=== PATIENT | female | born 1945 | race Caucasian/White ===

== ENCOUNTER 2019-10-02 14:19 | Emergency (ER) | payer MEDICAID, SELFPAY ==
[2019-10-02 14:23] VITALS: BP 94/55; PULSE 86; RESP 14; TEMP 36.7; O2SAT 95; BMI 35.5
--- NOTE | 2019-10-02 14:38 | XRR_ITS ---
PROCEDURE INFORMATION: Exam: XR Abdomen, 1 View Exam date and time: 10/02/2019 2:41 PM Age: 74 years old Clinical indication: Other: Diarrhea; Prior surgery; Surgery type: Gb; Additional info: Diarrhea x 2 weeks, lower abd pain x 4 days TECHNIQUE: Imaging protocol: XR of the abdomen. Views: Frontal supine view of the abdomen. 1 View. COMPARISON: No relevant prior studies available. FINDINGS: Gastrointestinal tract: Scattered bowel gas in a nonspecific fashion. Organs: No evidence of organomegaly or abnormal calcification. Bones/joints: Degenerative change of the spine. Degenerative change of both hips. XR/XR KUB portable [id number] IMPRESSION: Unremarkable KUB.
--- NOTE | 2019-10-02 14:47 | W.ED.NAVMDI ---
HPI - Nausea/Vomiting/Diarrhea General: Chief complaint: Nausea/Vomiting/Diarrhea Stated complaint: WEAKNESS/D Time Seen by Provider: 10/02/19 14:32 History of Present Illness: HPI Narrative: Patient says she feels fine but she has had diarrhea for 2 weeks having yellow stools the last few days. Has been a little nauseous but it continues to eat only drinks bottled water is not been arriving by is been sick. No fever chills or other problems MD elicited complaint: nausea and diarrhea Associated nausea: Yes Associated symtoms: Reports nausea; Denies anxiety, change in vision, chest pain or headache(s) Review of Systems Const: Denies: fever(s), chills or body aches Eyes: Denies: change in vision or blurry vision ENMT: Denies: throat pain or nasal congestion Card: Denies: chest pain or dyspnea on exertion Resp: Denies: dyspnea, productive cough or non-productive cough GI: Reports: nausea and diarrhea; Denies: abdominal pain or vomiting Musc: Denies: extremity pain Skin/Breast: Denies: rash Neuro: Denies: headache(s) Psych: Denies: anxiety or depression Jose A/Lymph: Denies: easy bruising PFSH ED PFSH: Social History Smoking and tobacco status: never smoked Physical Exam Const: COMMON NORMALS: no acute distress, average body habitus and patient oriented x3 HENMT: COMMON NORMALS: normocephalic HEAD & SCALP: normal to inspection and normocephalic FACE & SINUS: normal facial exam Eye: COMMON NORMALS: conjunctivae normal GENERAL EYE: appearance normal, both eyes and all related structures CONJUNCTIVA: Yes conjunctivae normal Neck/C-Spine: COMMON NORMALS: no JVD Chest: COMMONS NORMALS: normal inspection of the chest Resp: COMMON NORMALS: normal respiratory effort and clear to auscultation bilaterally AUSCULTATION: clear to auscultation bilaterally Cardio: COMMON NORMALS: no JVD, regular rate and regular rhythm RATE: regular rate RHYTHM: regular rhythm GI: COMMON NORMALS: Normal to inspection, nondistended, normoactive bowel sounds present Extremity: COMMON NORMALS: normal to inspection and full ROM Neuro: COMMON NORMALS: patient oriented x3 Course Vital Signs: Vital signs: Vital Signs Temperature 98.1 F 10/02/19 14:23 Pulse Rate 86 10/02/19 14:23 Respiratory Rate 14 10/02/19 14:23 Blood Pressure 94/55 10/02/19 14:23 Pulse Oximetry 95 10/02/19 14:23 Discharge Plan Discharge Prescriptions: No Action carvedilol 25 mg tablet 25 mg PO BID Qty: 60 RF: 3 spironolactone 25 mg tablet 25 mg PO DAILY Qty: 30 RF: 5 Coding Level of Care Code ED Roving Marker for Sancho Romo
[2019-10-02 15:09] LABS: Basophils % 0.5 %; Eosinophils # 0.1 10^3/uL (0.0-0.8); Eosinophils % 1.5 %; Hematocrit 37.2 % (37.0-47.0); Hemoglobin 12.2 g/dL (11.5-15.3); Lymphocytes # 1.6 10^3/uL (0.8-4.8); Lymphocytes % 19.7 %; Mean Corpuscular HGB Conc 32.8 g/dL (30.0-36.0); Mean Corpuscular Hemoglobin 30.3 pg (28.0-34.0); Mean Corpuscular Volume 92.3 fL (81-99); Mean Platelet Volume 10.1 fL (7.4-10.4); Monocytes # 0.8 10^3/uL (0.2-0.9); Monocytes % 10.1 %; Neutrophils # 5.4 10^3/uL (1.8-7.7); Neutrophils % 67.9 %; Nucleated Red Blood Cells % 0 %; Platelet Count 293 10^3/cmm (130-400); Red Blood Count 4.03 10^6/uL (4.1-5.3); Red Cell Distribution Width 13.5 % (12.1-15.1); White Blood Count 7.9 10^3/uL (4.0-10.0)
[2019-10-02 15:38] LABS: Alanine Aminotransferase 36 U/L (0-33); Albumin Level 4.7 g/dL (3.5-5.2); Alkaline Phosphatase 141 IU/L (35-105); Anion Gap 21.8 (5-19); Aspartate Amino Transferase 25 U/L (0-32); Blood Urea Nitrogen 73 mg/dL (8-23); Calcium 10.1 mg/dL (8.5-10.5); Carbon Dioxide 15 mmol/L (22-29); Chloride 102 mmol/L (98-107); Globulin 2.7 g/dL (1.3-4.6); Glucose 135 mg/dL (65-115); Osmolality Calculated 278 mOsm/kg (285-295); Potassium 5.8 mmol/L (3.5-5.1); Sodium 133 mmol/L (136-145); Thyroid Stimulating Hormone 4.02 uIU/mL (0.27-4.20); Total Protein 7.4 g/dL (6.6-8.7)
--- NOTE | 2019-10-02 15:51 | CTR_ITS ---
PROCEDURE INFORMATION: Exam: CT Abdomen And Pelvis Without Contrast Exam date and time: 10/02/2019 3:58 PM Age: 74 years old Clinical indication: Prior surgery; Surgery type: Gb; Patient HX: Persistent diarrhea. Elevated creatinine. TECHNIQUE: Imaging protocol: Computed tomography of the abdomen and pelvis without contrast. Radiation optimization: All CT scans at this facility use at least one of these dose optimization techniques: automated exposure control; mA and/or kV adjustment per patient size (includes targeted exams where dose is matched to clinical indication); or iterative reconstruction. COMPARISON: CR XR KUB portable [id number] 10/02/2019 2:40 PM RADIATION DOSE METRICS: Total DLP (mGy-cm): 1248.43 FINDINGS: Liver: Normal. No mass. Gallbladder and bile ducts: Normal. No calcified stones. No ductal dilation. Pancreas: Normal. No ductal dilation. Spleen: Normal. No splenomegaly. Adrenals: Normal. No mass. Kidneys and ureters: There are subcentimeter renal cysts with benign features. Follow-up is not necessary. Stomach and bowel: There is diverticulosis of the colon without evidence of diverticulitis. There are air-fluid levels in the distal colon suggesting mild nonspecific colitis versus other diarrheal illness. Appendix: No evidence of appendicitis. Intraperitoneal space: Unremarkable. No free air. No significant fluid collection. Vasculature: Multivessel atherosclerotic disease which involves the coronary arteries. Lymph nodes: Unremarkable. No enlarged lymph nodes. Bladder: Unremarkable as visualized. Reproductive: Unremarkable as visualized. Bones/joints: There are degenerative changes in the visualized spine. 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 Slight grade 1 anterolisthesis of L5 on S1 with mild bilateral neural foraminal narrowing. Soft tissues: There is a small fat containing umbilical hernia. CT/CT abdomen pelvis wo con [id number] IMPRESSION: There are air-fluid levels in the distal colon suggesting mild nonspecific colitis versus other diarrheal illness. COMMENTS: Consistent with the [employer]'s Incidental Findings Committee white paper (J Am Melvin Radiol 2018): Any incidental renal lesion less than 1.0 cm or classified as too small to characterize, or any incidental cystic renal lesion characterized as simple-appearing, is likely benign. No follow-up imaging is recommended for these lesions per consensus recommendations based on imaging criteria. Radiation Dose CTDIVOL = (mGy): DLP = 1248.43 (mGy-cm)
[2019-10-02 15:52] VITALS: RESP 18
[2019-10-02] MEDS: sodium chloride 0.9% 1,000 ML 999 ML IV (16:29)
[2019-10-02 16:57] VITALS: BP 102/48; PULSE 62; RESP 18; TEMP 36.7; O2SAT 98
== END 2019-10-02 16:59 | disposition home or self-care (01) ==
PROVIDERS: Emergency Provider Nurse Practitioner Family; PCP Family Medicine
DX: R11.2 Nausea with vomiting, unspecified (principal); R19.7 Diarrhea, unspecified; R53.1 Weakness
CPT/HCPCS: 12345; 74018; 74176; 80053; 84443; 85025; 96360; 99283; J7030

== ENCOUNTER 2021-01-24 11:49 | Emergency (ER) | payer MEDICAID, SELFPAY ==
[2021-01-24 12:01] VITALS: BP 147/86; PULSE 78; RESP 18; TEMP 37.2; O2SAT 97; BMI 36.1
--- NOTE | 2021-01-24 12:08 | CT_ITS ---
WS: [id number] CT ABDOMEN PELVIS TECHNIQUE: Noncontrast CT of the abdomen and pelvis with coronal and sagittal reformatted images. CLINICAL INFORMATION: rule out trauma COMPARISON: October 02, 2019 DLP: 1792.[address] scans at [facility] use at least one of these dose optimization techniques: automated e xposure control; mA and/or kV adjustment per patient size (includes targeted exams where dose is matc hed to clinical indication); or iterative reconstruction. FINDINGS: Lung bases are well aerated. Chronic micronodular infiltrate left lower lobe with bronchiectasis unch anged since October 02, 2019. Noncontrast liver is normal. Normal noncontrast spleen. Mild fatty atrophy of the pancreas. Small eso phageal hiatal hernia. Adrenal glands are normal. Normal caliber abdominal aorta. Adrenal glands are normal. No hydronephrosis in either kidney. Cortical scarring both kidneys. Small right peripelvic cy sts. Fat-containing umbilical hernia. A few sigmoid diverticuli. No evidence of acute diverticulitis. No e vidence of small or large bowel obstruction. No free fluid in the pelvis. Slight anterolisthesis L5 o n S1 with chronic bilateral pars defects. Fibroid uterus. CT/CT abdomen pelvis wo con [id number] IMPRESSION: 1. No hydronephrosis in either kidney. No obstructing renal or ureteral calcul i. 2. Small esophageal hiatal hernia. 3. Fat-containing umbilical hernia. 4. Fibroid uterus. 5. Chronic bilateral pars defects L5-S1. Minimal anterolisthesis L5 on S1. 6. Sigmoid diverticulosis. No evidence of acute diverticulitis.
--- NOTE | 2021-01-24 12:08 | XR_ITS ---
NOTE: Report was unsigned for reason: Order was edited. Original Signature date and time was: 01/24/21@ 1253 WS: [id number] PA chest with right rib detail, 3 views, 01/24/2021 Clinical Data: r sided rib pain Comparison: PA and lateral chest, 03/30/2018. Findings: The heart is normal. The pulmonary vascularity is not increased. No pneumonia or pneumothorax is seen. There is no subcutaneous emphysema. The right ribs show no fractures. The adjacent soft tissue is normal[facility] w CXR1V [id number] Impression: Negative PA chest with right rib detail.
--- NOTE | 2021-01-24 12:14 | ED_ITS ---
HPI - General Adult General: Chief complaint: Fall Stated complaint: R SIDE PAIN - FELL 1 WK AGO Time Seen by Provider: 01/24/21 11:52 History of Present Illness: HPI narrative: Patient is a 75-year-old female presents emergency with room with complaints of right-sided flank pain after an episode of fall which she sustained last week opening the dog gate. Patient has bruises over the right hip but reports right- sided flank pain, which has been persistent. Patient denies any hematuria, abdominal complaints, nausea/vomiting, fever/chills. Patient denies having any chest pain or shortness of breath cough fever/chills, or other complaints at this time. Onset:1 week ago Duration:1 week Location:home Severity: mild Review of Systems Narrative: Constitutional: No fever, no chills. HEENT: No vision changes CV: No chest pain, no palpitations PULM: no cough, no dyspnea. GI: No abdominal pain, no N/V/D. : No dysuria MSKEL: No muscle pain, +L sided flank pain SKIN: +L sided bruise NEURO: No headache, no focal weakness. HEME: No visible bruises PSYCH: Normal mood [facility] ED PFSH: Social History Smoking and tobacco status: never smoked Female Reproductive History: Date of last menstrual period: 06/29/20 Physical Exam Narrative: EXAM NARRATIVE: Head: Atraumatic Eyes: PERRL, conjunctiva without injection ENT: Mucous membrane moist NECK: Supple, ROM intact LUNGS: LCTAB, no crackles/rhonchi CV: RRR ABDOMEN: Soft, nontender in all quadrants, +L abdominal hematoma EXTREMITY: Normal ROM SKIN: + L lateral thigh healing bruise NEURO: Awake and alert, no focal motor deficits PSYCH: Normal mood and affect Course Vital Signs: Vital signs: Vital Signs Temperature 98.9 F 01/24/21 12:01 Pulse Rate 84 01/24/21 13:53 Respiratory Rate 16 01/24/21 13:53 Blood Pressure 168/82 01/24/21 13:53 Pulse Oximetry 98 01/24/21 13:53 MDM - General Adult MDM Narrative: Medical decision making narrative: Patient is 75-year-old female presenting to the emergency room with complaints of right-sided flank pain after sustaining a fall last week. Patient has preserved the right hip. On exam, patient has mild tenderness to palpation of the right flank. Lungs were clear on both sides. Given finding, will evaluate for solid organ injury versus rib fracture with x- ray chest, rib series and CT abdomen pelvis. Imaging studies negative for any acute findings. Rx tylenol 500mg TID PRN pain Disposition: Discharge. Patient counseled regarding diagnostic impression, treatment plan. Patient given ED strict return precautions to return for continuation, worsening, or development of new symptoms. Instructed to f/u w/ PCP regarding symptoms today. Patient verbalized understanding. Imaging Data^: Other Imaging: Radiologist's impression: [address] [id number] ReportSigned Patient: Tresa Abrams #: [id number]: 5Acct#:[id number]/Sex: 75 / FADM Date: 01/24/21[facility]Attending Dr: Ordering Provider/Ordering MD: Naun Dorsey MD Date of Service: 01/24/21 Procedure(s): XR ribs RT mn 3V w CXR1V [id number] Accession Number(s): [id number] Report Number: [id number] NOTE: Report was unsigned for reason: Order was edited. Original Signature date and time was: 01/24/21@ 1253 WS: [id number] PA chest with right rib detail, 3 views, 01/24/2021 Clinical Data: r sided rib pain Comparison: PA and lateral chest, 03/30/2018. Findings: The heart is normal. The pulmonary vascularity is not increased. No pneumonia or pneumothorax is seen. There is no subcutaneous emphysema. The right ribs show no fractures. The adjacent soft tissue is normal. XR/XR ribs RT mn 3V w CXR1V [id number] Impression: Negative PA chest with right rib detail. Dictated By:Amy Ceja MDSigned By:Amy Ceja MDSigned Date/Time:01/24/[address] [address]QR Scan ReportSigned Patient: Tresa Abrams #: [id number]: 5Acct#:[id number]/Sex: 75 / FADM Date: 01/24/21Loc: ERRoom/Bed:Attending Dr: Ordering Provider/Ordering MD: Naun Dorsey MD Date of Service: 01/24/21 Procedure(s): CT abdomen pelvis wo con [id number] Accession Number(s): [id number] Report Number: [id number] WS: [id number] CT ABDOMEN PELVIS TECHNIQUE: Noncontrast CT of the abdomen and pelvis with coronal and sagittal reformatted images. CLINICAL INFORMATION: rule out trauma COMPARISON: October 02, 2019 DLP: 1792.[address] scans at [facility] use at least one of these dose optimization techniques: automated exposure control; mA and/or kV adjustment per patient size (includes targeted exams where dose is matched to clinical indication); or iterative reconstruction. FINDINGS: Lung bases are well aerated. Chronic micronodular infiltrate left lower lobe with bronchiectasis unchanged since October 02, 2019. Noncontrast liver is normal. Normal noncontrast spleen. Mild fatty atrophy of the pancreas. Small esophageal hiatal hernia. Adrenal glands are normal. Normal caliber abdominal aorta. Adrenal glands are normal. No hydronephrosis in either kidney. Cortical scarring both kidneys. Small right peripelvic cysts. Fat-containing umbilical hernia. A few sigmoid diverticuli. No evidence of acute diverticulitis. No evidence of small or large bowel obstruction. No free fluid in the pelvis. Slight anterolisthesis L5 on S1 with chronic bilateral pars defects. Fibroid uterus. CT/CT abdomen pelvis wo con [id number] IMPRESSION: 1. No hydronephrosis in either kidney. No obstructing renal or ureteral calculi. 2. Small esophageal hiatal hernia. 3. Fat-containing umbilical hernia. 4. Fibroid uterus. 5. Chronic bilateral pars defects L5-S1. Minimal anterolisthesis L5 on S1. 6. Sigmoid diverticulosis. No evidence of acute diverticulitis. Dictated By:Thanh Nguyen MDSigned By:Thanh Nguyen MDSigned Date/Time:01/24/21 1314 Discharge Plan Discharge Patient Disposition: Home Clinical Impression: Flank pain Condition: Stable Prescriptions: New acetaminophen 500 mg tablet 500 mg PO Q8H PRN (Reason: pain) 5 Days Qty: 15 RF: 0 lidocaine 5 % adhesive patch,medicated 1 patch topical DAILY PRN (Reason: pain) 10 Days Qty: 10 RF: 0 orphenadrine citrate 100 mg tablet extended release 100 mg PO DAILY PRN (Reason: pain) 10 Days Qty: 10 RF: 0 No Action carvedilol 25 mg tablet 25 mg PO BID Qty: 60 RF: 3 spironolactone 25 mg tablet 25 mg PO DAILY Qty: 30 RF: 0 Lomotil 2.5-0.025 mg tablet 1 tab PO Q8H PRN (Reason: diarrhea) Qty: 10 RF: 0 Discharge Orders: Discharge ED (Routine); Ordered 01/24/21 Ordered By: Naun Dorsey Referrals: Eran Henry DO [Primary Care Provider] - Discharge Diet: Advance as tolerated Discharge Activity: Resume usual activity Patient Instructions: Flank Pain (ED) Activity Restrictions/Additional Instructions: Come back to the ER if you have any worsening pain, fever/chills, or any new or concerning complaints. 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
[2021-01-24 13:53] VITALS: BP 168/82; PULSE 84; RESP 16; O2SAT 98
== END 2021-01-24 13:55 | disposition home or self-care (01) ==
PROVIDERS: Emergency Provider Emergency Medicine; PCP Family Medicine
DX: R10.9 Unspecified abdominal pain (principal)
CPT/HCPCS: 71045; 71100; 71101; 74176; 99281

== ENCOUNTER 2021-04-15 19:05 | Emergency (ER) | payer MEDICAID, SELFPAY ==
[2021-04-15 19:36] VITALS: BP 130/82; PULSE 77; RESP 16; TEMP 36.8; O2SAT 97; BMI 36.1
--- NOTE | 2021-04-15 21:41 | CTR_ITS ---
PROCEDURE INFORMATION: Exam: CT Abdomen And Pelvis With Contrast Exam date and time: 04/15/2021 9:41 PM Age: 76 years old Clinical indication: Other: Bright red blood in stools; Prior surgery; Surgery date: 6+ months; Surgery type: Gb; Additional info: Lower gi bleeding TECHNIQUE: Imaging protocol: Computed tomography of the abdomen and pelvis with contrast. Total images: 258 Radiation optimization: All CT scans at this facility use at least one of these dose optimization techniques: automated exposure control; mA and/or kV adjustment per patient size (includes targeted exams where dose is matched to clinical indication); or iterative reconstruction. Contrast material: VISI; Contrast volume: 95 ml; Contrast route: INTRAVENOUS (IV); COMPARISON: CT abdomen pelvis wo con [id number] 01/24/2021 12:32 PM RADIATION DOSE METRICS: Total DLP (mGy-cm): 1799.37 FINDINGS: Lungs: Limited assessment of the lung bases fails to reveal evidence for active cardiopulmonary process. Stable parenchymal scar left lower lobe. Liver: No visible hepatic mass or cystic structure. Hepatomegaly. Gallbladder and bile ducts: Gallbladder not visualized and presumed surgically absent. Pancreas: Mild pancreatic fatty replacement. No visible pancreatic ductal ectasia. No visible pancreatic mass or cystic structure. Spleen: Rare calcified splenic granuloma. Spleen otherwise unremarkable. Adrenal glands: Adrenal glands unremarkable. Kidneys and ureters: No hydronephrosis or perinephric fluid. No visible nephrolithiasis or visible ureterolithiasis. Rare small simple renal cortical cysts bilaterally. No follow-up recommended. No interval change. No visible renal mass. Stomach and bowel: Diverticulosis coli without current visible evidence for acute diverticulitis. Nonobstructive bowel pattern. No visible adynamic or reactive ileus. Small hiatal hernia. No visible source of gastrointestinal hemorrhage. Appendix: The appendix is not visualized. Intraperitoneal space: No visible pneumoperitoneum or intraperitoneal ascites. Vasculature: Portal vein patent. The abdominal aorta is nonaneurysmal. Moderate arterial sclerotic disease. Lymph nodes: No current visible evidence of active mesenteric or retroperitoneal lymphadenopathy. No visible evidence of mesenteric lymphadenitis or active mesenteritis/panniculitis. Urinary bladder: Urinary bladder unremarkable. No visible bladder stone. Reproductive: Small uterine leiomyomata. Bones/joints: No visible acute osseous abnormality. Old posterior right 12th rib fracture. Bilateral spondylolysis L5/S1 with minimal grade 1 anterior spondylolisthesis. Mild degenerative disease of the spine with mild spondylosis deformans. Soft tissues: Small periumbilical hernia containing fat only. Marked obesity. CT/CT abdomen pelvis w con* [id number] IMPRESSION: Currently no visible evidence for acute abdominal or pelvic pathologic process. COMMENTS: Consistent with the [employer]'s Incidental Findings Committee white paper (J Am Melvin Radiol 2018): Any incidental renal lesion less than 1 cm or classified as too small to characterize, or any incidental cystic renal lesion characterized as simple-appearing, is likely benign. No follow-up imaging is recommended for these lesions per consensus recommendations based on imaging criteria.
--- NOTE | 2021-04-15 21:42 | ECG_ITS ---
[facility] Test Date: 2021-04-15 Pat Name: Tresa Abrams Department: Room: Gender: Female Cut Pressman: : 1945 Requested By: Pola Harman Order Number: [id number] Mitchell MD: Guillermina Pressley M.D. Measurements Intervals [place] Rate: 72 P: 66 GA: 185 QRS: 3 QRSD: 95 T: 56 QT: 402 QTc: 440 Interpretive Statements SINUS RHYTHM Compared to ECG 03/30/2018 17:00:26 No significant changes Electronically Signed On 04-17-2021 5:05:18 NIGHT TIME NANNY by Guillermina Pressley M.D. [id number]
[2021-04-15 21:59] VITALS: BP 142/72; PULSE 70; RESP 18; O2SAT 98
[2021-04-15 22:08] LABS: Basophils # 0.1 10^3/uL (0.0-0.1); Basophils % 0.6 %; Eosinophils # 0.1 10^3/uL (0.0-0.8); Eosinophils % 1.3 %; Hematocrit 37.1 % (37.0-47.0); Hemoglobin 11.9 g/dL (11.5-15.3); Lymphocytes # 1.7 10^3/uL (0.8-4.8); Lymphocytes % 19.1 %; Mean Corpuscular HGB Conc 32.1 g/dL (30.0-36.0); Mean Corpuscular Hemoglobin 28.6 pg (28.0-34.0); Mean Corpuscular Volume 89.2 fl (81-99); Mean Platelet Volume 9.8 fL (7.4-10.4); Monocytes # 0.8 10^3/uL (0.2-0.9); Monocytes % 9.2 %; Neutrophils # 6.31 10^3/uL (1.8-7.7); Neutrophils % 69.7 %; Nucleated Red Blood Cells % 0 %; Platelet Count 319 10^3/cmm (130-400); Red Blood Count 4.16 10^6/uL (4.1-5.3); Red Cell Distribution Width 13.2 % (12.1-15.1); White Blood Count 9.1 10^3/uL (4.0-10.0)
--- NOTE | 2021-04-15 22:19 | ED_ITS ---
HPI - Arrhythmia/Palpitations General: Chief Complaint: Arrhythmia/Palpitations Stated Complaint: Irregular heartbeat\Blood in stool Time Seen by Provider: 04/15/21 21:28 History of Present Illness: HPI narrative: 76-year-old female presents with 2 days of not feeling well. She states she is dizzy when standing. She has had bright red blood in her stool. No clots. No vomiting. No fever. No belly pain. She states she has had some palpitations, and her heart rate feels irregular to her. No overt chest pain. No significant shortness of breath. MD complaint: rapid heart beat and irregular heart beat Onset (ago): hour(s) (24-36) Duration: intermittent Severity: moderate Context: occurred during rest Arrhythmia history: other Associated symptoms: Reports pre-syncope; Deny cough, diaphoresis, muscle cramps, nausea, paresthesias, sense of impending doom, short of breath, syncope or vomiting Review of Systems Const: Denies: fever(s) or diaphoresis Eyes: Denies: blurry vision Card: Reports: palpitations, irregular heart rhythm and pre-syncope; Denies: chest pain or syncope Resp: Denies: dyspnea GI: Denies: nausea or vomiting Musc: Denies: muscle cramps PFS ED PFSH: Social History Smoking and tobacco status: never smoked Female Reproductive History: Date of last menstrual period: 06/29/20 Physical Exam Const: GENERAL APPEARANCE: cooperative; not ill appearing HENMT: COMMON NORMALS: normocephalic and atraumatic HEAD & SCALP: normocephalic and atraumatic Eye: COMMON NORMALS: Equal, round and reactive pupils present PUPIL: Yes Equal, round and reactive pupils present Chest: COMMONS NORMALS: normal inspection of the chest Resp: COMMON NORMALS: normal respiratory effort, No use of accessory muscles and clear to auscultation bilaterally AUSCULTATION: clear to auscultation bilaterally Cardio: COMMON NORMALS: regular rate and regular rhythm RATE: regular rate RHYTHM: regular rhythm GI: COMMON NORMALS: Normal to inspection, nondistended, normoactive bowel sounds present, Soft to palpation and non-tender PALPATION: Yes Soft to palpation Course Vital Signs: Vital signs: Vital Signs Temperature 98.3 F 04/15/21 19:36 Pulse Rate 81 04/16/21 02:24 Respiratory Rate 18 04/16/21 02:24 Blood Pressure 154/81 04/16/21 02:24 Pulse Oximetry 96 04/16/21 02:24 MDM - Arrhythmia/Palpitations MDM Narrative: Medical decision making narrative: Hemoglobin is 12. White blood cell count is 9.1. Her belly is nontender. CT did not show a cause of bleeding or any other source of pathology. Her BUN is not elevated. No bleeding since here. As far as the palpitations go, she has been in sinus rhythm on the monitor. She was hypertensive at 1 point, but this improved on its own. We will allow her home. And you saw for likely hemorrhoidal bleeding. Close outpatient follow-up. Lab Data: Labs: Lab Results 04/15/21 04/15/21 04/15/21 21:30 21:57 21:57 WBC 9.1 10^3/uL 10^3/ uL (4.0-10.0) RBC 4.16 10^6/uL 10^6 /uL (4.1-5.3) Hgb 11.9 g/dL g/dL (11.5-15.3) Hct 37.1 % % (37.0-47.0) MCV 89.2 fl fl (81-99) MCH 28.6 pg pg (28.0-34.0) MCHC 32.1 g/dL g/dL (30.0-36.0) RDW 13.2 % % (12.1-15.1) Plt Count 319 10^3/cmm 10^3 /cmm (130-400) MPV 9.8 fL fL (7.4-10.4) Neut % (Auto) 69.7 % % Lymph % (Auto) 19.1 % % [place] % (Auto) 9.2 % % Eos % (Auto) 1.3 % % Baso % (Auto) 0.6 % % Neut # (Auto) 6.31 10^3/uL 10^3 /uL (1.8-7.7) Lymph # (Auto) 1.7 10^3/uL 10^3/ uL (0.8-4.8) [place] # (Auto) 0.8 10^3/uL 10^3/ uL (0.2-0.9) Eos # (Auto) 0.1 10^3/uL 10^3/ uL (0.0-0.8) Baso # (Auto) 0.1 10^3/uL 10^3/ uL (0.0-0.1) Nucleated RBC % (a uto) 0 % % Nucleated RBCs # 0.0 /100WBC /100W BC PT 13.50 SECONDS SEC ONDS (12.1-14.9) INR 1.00 (0.8-1.2) Sodium Potassium Chloride Carbon Dioxide Anion Gap BUN Creatinine GFR Calculation Glucose Calculated Osmolal ity Calcium Magnesium Total Bilirubin AST ALT Alkaline Phosphata se Troponin T Baselin e Troponin T 120 Min [place] Troponin T C-Reactive Protein Total Protein Albumin Globulin Lipase TSH Blood Type A Positive Rho(D) Type Positive Antibody Screen Negative 04/15/21 04/15/21 04/16/21 21:57 21:57 00:03 WBC RBC Hgb Hct MCV MCH MCHC RDW Plt Count MPV Neut % (Auto) Lymph % (Auto) [place] % (Auto) Eos % (Auto) Baso % (Auto) Neut # (Auto) Lymph # (Auto) [place] # (Auto) Eos # (Auto) Baso # (Auto) Nucleated RBC % (a uto) Nucleated RBCs # PT INR Sodium 137 mmol/L mmol/L (136-145) Potassium 3.7 mmol/L mmol/L (3.5-5.1) Chloride 98 mmol/L mmol/L (98-107) Carbon Dioxide 26 mmol/L mmol/L (22-29) Anion Gap 16.7 (5-19) BUN 15 mg/dL mg/dL (8-23) Creatinine 1.1 mg/dL H mg/dL (0.5-0.9) GFR Calculation Not Reportable Glucose 150 mg/dL H mg/dL (65-115) Calculated Osmolal ity 288 mOsm/kg mOsm/ kg (285-295) Calcium 9.2 mg/dL mg/dL (8.5-10.5) Magnesium 2.0 mg/dL mg/dL (1.7-2.3) Total Bilirubin 0.9 mg/dL mg/dL (0.15-1.2) AST 19 U/L U/L (0-32) ALT 23 U/L U/L (0-33) Alkaline Phosphata se 154 IU/L H IU/L (35-105) Troponin T Baselin e 12 ng/L H ng/L (0-10) Troponin T 120 Min [place] 10.29 ng/L H ng/L (0-10) Delta Troponin T -1.71 ABS# L ABS# (0-10) C-Reactive Protein 1.2 mg/L mg/L (0.0-4.9) Total Protein 6.8 g/dL g/dL (6.6-8.7) Albumin 4.2 g/dL g/dL (3.5-5.2) Globulin 2.6 g/dL g/dL (1.3-4.6) Lipase 42 U/L U/L (13-60) TSH 4.60 uIU/mL H uIU /mL (0.27-4.20) Blood Type Rho(D) Type Antibody Screen Discharge Plan Discharge Patient Disposition: Home Clinical Impression: Palpitations, Acute lower GI bleeding Condition: Stable Prescriptions: New Anusol-HC 25 mg suppository 25 mg [place] DAILY Qty: 10 RF: 0 No Action carvedilol 25 mg tablet 25 mg PO BID Qty: 60 RF: 3 spironolactone 25 mg tablet 25 mg PO DAILY Qty: 30 RF: 0 Lomotil 2.5-0.025 mg tablet 1 tab PO Q8H PRN (Reason: diarrhea) Qty: 10 RF: 0 Discharge Orders: Discharge ED (Routine); Ordered 04/16/21 Ordered By: Pola Nelson Referrals: Eran Henry, [Primary Care Provider] - 1-3 days Discharge Diet: Advance as tolerated Discharge Activity: Increase activity as tolerated Patient Instructions: Heart Palpitations (ED), Rectal Bleeding (ED) Activity Restrictions/Additional Instructions: Return for abdominal pain, vomiting, passing large clots in your stool, fever greater than 100, chest discomfort, any other concerning symptoms. If you continue to lose blood in your stool, you will need to see your doctor and have your blood count rechecked within 48 hours. Use the prescription you were given for the next 5 days. Coding Level of Care Code ED Aerobics Instructor for Chg Fwd Exam Detailed
[2021-04-15] MEDS: sodium chloride 0.9% 1,000 ML 999 ML IV (22:20)
[2021-04-15 22:22] LABS: Troponin(5th) Baseline 12 ng/L (0-10)
[2021-04-15 22:32] LABS: Alanine Aminotransferase 23 U/L (0-33); Albumin Level 4.2 g/dL (3.5-5.2); Alkaline Phosphatase 154 IU/L (35-105); Anion Gap 16.7 (5-19); Aspartate Amino Transferase 19 U/L (0-32); Blood Urea Nitrogen 15 mg/dL (8-23); C Reactive Protein 1.2 mg/L (0.0-4.9); Calcium 9.2 mg/dL (8.5-10.5); Carbon Dioxide 26 mmol/L (22-29); Chloride 98 mmol/L (98-107); Globulin 2.6 g/dL (1.3-4.6); Glucose 150 mg/dL (65-115); Lipase 42 U/L (13-60); Osmolality Calculated 288 mOsm/kg (285-295); Potassium 3.7 mmol/L (3.5-5.1); Sodium 137 mmol/L (136-145); Total Bilirubin 0.9 mg/dL (0.15-1.2); Total Protein 6.8 g/dL (6.6-8.7)
[2021-04-15] MEDS: iodixanol 320 mg/mL 100mL Btl IV (23:13)
[2021-04-15 23:22] VITALS: BP 179/78; PULSE 83; RESP 16; O2SAT 98
--- NOTE | 2021-04-15 23:42 | ECG_ITS ---
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 Measurements Intervals [place] Rate: 79 P: 76 [place]: 232 QRS: 15 QRSD: 82 T: 59 QT: 381 QTc: 438 Interpretive Statements SINUS RHYTHM WITH FIRST DEGREE AV BLOCK WITH OCCASIONAL VENTRICULAR PREMATURE COMPLEXES LOW QRS VOLTAGE IN PRECORDIAL LEADS [QRS DEFLECTION < 1.0 mV IN CHEST LEADS] SEPTAL MYOCARDIAL INFARCTION , PROBABLY OLD [40+ ms Q WAVE IN V1/V2] Compared to ECG 04/15/2021 21:48:42 Ventricular premature complex(es) now present First degree AV block now present Low QRS voltage now present Myocardial infarct finding now present Electronically Signed On 04-17-2021 5:18:44 MASH FILTER PRESS OPERATOR by Guillermina Pressley M.D. [id number]
[2021-04-16 00:36] LABS: Troponin 5 2HR 10.29 ng/L (0-10)
[2021-04-16 00:38] LABS: Troponin 5 2HR Delta -1.71 ABS# (0-10)
--- NOTE | 2021-04-16 02:16 | PC.NURSE ---
Labatolol order was not given due to the patient pressure being 154/81.
[2021-04-16 02:17] VITALS: BP 154/81; PULSE 81; RESP 18; O2SAT 96
[2021-04-16 02:24] VITALS: BP 154/81; PULSE 81; RESP 18; O2SAT 96
== END 2021-04-16 02:25 | disposition home or self-care (01) ==
PROVIDERS: Emergency Provider Emergency Medicine; PCP Family Medicine
DX: R00.2 Palpitations (principal); K92.2 Gastrointestinal hemorrhage, unspecified
CPT/HCPCS: 74177; 80053; 83690; 83735; 84443; 84484; 85025; 85610; 86140; 86850; 86900; 93005; 96360; 99284; J7030; Q9967

== ENCOUNTER 2021-04-18 16:00 | Emergency (ER) | payer MEDICAID, SELFPAY ==
[2021-04-18 16:32] VITALS: BP 127/68; PULSE 72; RESP 18; TEMP 36.9; O2SAT 98; BMI 36.1
--- NOTE | 2021-04-18 16:56 | W.ED.BACK ---
HPI - Back Pain/Injury General: Chief Complaint: Back Pain/Injury Stated Complaint: R side of stomach and back is in severe pain Time Seen by Provider: 04/18/21 16:56 History of Present Illness: HPI Narrative: 76-year-old female comes in today with complaints of right flank pain radiating into the right stomach. Patient reports pain started this morning has worsened throughout the day. Patient reports she has not tried any Tylenol for her pain at home. Patient reports some nausea but no changes in bowel habits. Nursing had reported that she stated she had 1 diarrhea stool today. Patient reports that she had a gallbladder surgery about 30 years ago. Patient continues to have her pelvic organs and appendix. Patient takes carvedilol and spironolactone and occasionally has Lomotil for diarrhea and hydrocortisone for hemorrhoids. Patient appears in moderate pain. Normal body habitus. Review of Systems General: Reports: 10 or more systems reviewed and unremarkable except in HPI and below Musc: Reports: back pain PFSH ED PFSH: Social History Smoking and tobacco status: never smoked Female Reproductive History: Date of last menstrual period: 06/29/20 Physical Exam Const: COMMON NORMALS: patient oriented x3 GENERAL APPEARANCE: cooperative HENMT: COMMON NORMALS: normocephalic and Normal external nose present HEAD & SCALP: normocephalic NOSE: Normal external nose present MOUTH: Normal oral and palatal mucosa present THROAT: posterior oropharynx normal Eye: GENERAL EYE: appearance normal, both eyes and all related structures Neck/C-Spine: COMMON NORMALS: full ROM Resp: COMMON NORMALS: normal respiratory effort EFFORT & INSPECTION: Yes able to speak in complete sentences Cardio: COMMON NORMALS: regular rate and regular rhythm RATE: regular rate RHYTHM: regular rhythm GI: COMMON NORMALS: non-tender : COMMON NORMALS: Yes no CVA tenderness BLADDER/KIDNEY EXAM: Yes no CVA tenderness Back/Pelvis: COMMON NORMALS: no CVA tenderness and thoracic and lumbar spine normal to inspection THORACIC SPINE/UPPER BACK: No thoracic spinal tenderness and No paraspinal muscle tenderness LUMBAR SPINE/LOWER BACK: No lumbar spinal tenderness and No paraspinal muscle tenderness Extremity: COMMON NORMALS: normal to inspection Neuro: COMMON NORMALS: patient oriented x3 and moves all extremities Psych: COMMON NORMALS: mental status grossly normal and cooperative Skin: COMMON NORMALS: no rashes or lesions noted GENERAL SKIN EXAM: no rashes or lesions noted Course Vital Signs: Vital signs: Vital Signs Temperature 98.4 F 04/18/21 16:32 Pulse Rate 72 04/18/21 16:32 Respiratory Rate 20 H 04/18/21 17:44 Blood Pressure 127/68 04/18/21 16:32 Pulse Oximetry 98 04/18/21 16:32 MDM - Back Pain/Injury MDM Narrative: Medical decision making narrative: 76-year-old female comes in today with complaints of right flank pain. Patient reports that she had to drive over to [facility] to see her primary care doctor and then when she got home she started having some right back pain. Patient had laid down to take a nap and when she woke up the pain was worse in her back. Patient came in to be further evaluated. On exam patient had no point tenderness along the thoracic or lumbar spine. Negative CVA tenderness on percussion. There was some noticeable bilateral paraspinous muscle tightness. Differential diagnosis includes UTI, renal calculi, musculoskeletal pain. CT of the abdomen pelvis noted no renal calculi or other significant abnormality. Urinalysis indicated no signs of infection. CBC noted some decrease in the patient's hemoglobin hematocrit as compared to 48 hours ago. CMP was unremarkable. Patient was seen 3 days ago and treated for a GI bleed that resolved on its own. Patient reports no further bleeding and I suspect that this is what the decrease in hemoglobin hematocrit is from. I discussed this with patient and family recommending that the patient needs to have a repeat CBC probably in 30 days to make sure that is not having further decline. Patient may need to have further evaluation of the GI bleed if continuing decline is noted. Patient had good pain resolution after injection of 4 mg of morphine. Patient was given 1 dose of Zofran for nausea control. I believe the patient probably has musculoskeletal back pain secondary to her recent car ride to her doctor's office. I will give her a short burst of hydrocodone with acetaminophen for back pain. Patient was given 10 tablets with recommendations for no further refills. Evaluation of the chart noted no current narcotic prescriptions. All questions were answered and recommendations for follow-up were encouraged. Lab Data: Labs: Lab Results 04/18/21 04/18/21 04/18/21 17:45 17:45 17:45 WBC 10.4 10^3/uL H 10 ^3/uL (4.0-10.0) RBC 3.61 10^6/uL L 10 ^6/uL (4.1-5.3) Hgb 10.7 g/dL L g/dL (11.5-15.3) Hct 32.6 % L % (37.0-47.0) MCV 90.3 fl fl (81-99) MCH 29.6 pg pg (28.0-34.0) MCHC 32.8 g/dL g/dL (30.0-36.0) RDW 13.4 % % (12.1-15.1) Plt Count 280 10^3/cmm 10^3 /cmm (130-400) MPV 10.1 fL fL (7.4-10.4) Neut % (Auto) 75.7 % % Lymph % (Auto) 12.3 % % [place] % (Auto) 9.5 % % Eos % (Auto) 1.6 % % Baso % (Auto) 0.6 % % Neut # (Auto) 7.86 10^3/uL H 10 ^3/uL (1.8-7.7) Lymph # (Auto) 1.3 10^3/uL 10^3/ uL (0.8-4.8) [place] # (Auto) 1.0 10^3/uL H 10^ 3/uL (0.2-0.9) Eos # (Auto) 0.2 10^3/uL 10^3/ uL (0.0-0.8) Baso # (Auto) 0.1 10^3/uL 10^3/ uL (0.0-0.1) Nucleated RBC % (a uto) 0 % % Nucleated RBCs # 0.0 /100WBC /100W BC Sodium 135 mmol/L L mmol /L (136-145) Potassium 4.2 mmol/L mmol/L (3.5-5.1) Chloride 96 mmol/L L mmol/ L (98-107) Carbon Dioxide 23 mmol/L mmol/L (22-29) Anion Gap 20.2 H (5-19) BUN 24 mg/dL H mg/dL (8-23) Creatinine 1.3 mg/dL H mg/dL (0.5-0.9) GFR Calculation Not Reportable Glucose 136 mg/dL H mg/dL (65-115) Calculated Osmolal ity 286 mOsm/kg mOsm/ kg (285-295) Calcium 8.8 mg/dL mg/dL (8.5-10.5) Total Bilirubin 0.7 mg/dL mg/dL (0.15-1.2) AST 23 U/L U/L (0-32) ALT 24 U/L U/L (0-33) Alkaline Phosphata se 124 IU/L H IU/L (35-105) Troponin T Baselin e 13 ng/L H ng/L (0-10) C-Reactive Protein 0.9 mg/L mg/L (0.0-4.9) Total Protein 6.6 g/dL g/dL (6.6-8.7) Albumin 4.0 g/dL g/dL (3.5-5.2) Globulin 2.6 g/dL g/dL (1.3-4.6) Lipase 50 U/L U/L (13-60) Urine Color Urine Appearance Urine pH Ur Specific Gravit y Urine Protein Urine Glucose (UA) Urine Ketones Urine Blood Urine Nitrate Urine Bilirubin Urine Urobilinogen Ur Leukocyte Oksana ase Urine RBC Urine WBC Ur Squamous Epith Cells Amorphous Sediment Urine Bacteria Hyaline Casts Urine Mucus 04/18/21 19:20 WBC RBC Hgb Hct MCV MCH MCHC RDW Plt Count MPV Neut % (Auto) Lymph % (Auto) [place] % (Auto) Eos % (Auto) Baso % (Auto) Neut # (Auto) Lymph # (Auto) [place] # (Auto) Eos # (Auto) Baso # (Auto) Nucleated RBC % (a uto) Nucleated RBCs # Sodium Potassium Chloride Carbon Dioxide Anion Gap BUN Creatinine GFR Calculation Glucose Calculated Osmolal ity Calcium Total Bilirubin AST ALT Alkaline Phosphata se Troponin T Baselin e C-Reactive Protein Total Protein Albumin Globulin Lipase Urine Color Yellow (Yellow) Urine Appearance Hazy A (CLEAR) Urine pH 5 (5-7) Ur Specific Gravit y 1.020 (1.005-1.030) Urine Protein Neg (Negative) Urine Glucose (UA) Norm (Normal) Urine Ketones Negative (Negative) Urine Blood Neg (Negative) Urine Nitrate Negative (Negative) Urine Bilirubin Neg (Negative) Urine Urobilinogen Norm mg/dL mg/dL (Negative) Ur Leukocyte Oksana ase Negative (Negative) Urine RBC None /hpf /hpf (0-2) Urine WBC None /hpf /hpf (0-5) Ur Squamous Epith Cells 5-10 /hpf H /hpf (0-5) Amorphous Sediment Not Reportable Urine Bacteria 1+ /hpf H /hpf (NONE) Hyaline Casts 0-4 /lpf H /lpf Urine Mucus 2+ /hpf /hpf Discharge Plan Discharge Patient Disposition: Home Clinical Impression: Acute right flank pain Anemia Qualifiers: Anemia type: unspecified type Qualified Code(s): D64.9 - Anemia, unspecified Condition: Stable Prescriptions: New hydrocodone-acetaminophen 5-325 mg tablet 1 tab PO Q8H PRN (Reason: pain (scale score 7-10)) Qty: 10 RF: 0 No Action carvedilol 25 mg tablet 25 mg PO BID Qty: 60 RF: 3 spironolactone 25 mg tablet 25 mg PO DAILY Qty: 30 RF: 0 Lomotil 2.5-0.025 mg tablet 1 tab PO Q8H PRN (Reason: diarrhea) Qty: 10 RF: 0 Anusol-HC 25 mg suppository 25 mg [place] DAILY Qty: 10 RF: 0 Discharge Orders: Discharge ED (Routine); Ordered 04/18/21 Ordered By: David Loza Referrals: Eran Henry DO [Primary Care Provider] - Discharge Diet: Usual diet Discharge Activity: Increase activity as tolerated Patient Instructions: Back Pain (ED), Opioid Safety Activity Restrictions/Additional Instructions: Use acetaminophen, Tylenol, as needed for pain. Drink plenty of water with medication. Use hydrocodone for severe pain. Follow-up with primary care for further instruction and evaluation. Return to the ER for worsening symptoms or new concerns. Coding Level of Care Code ED Database Administration Associate for Sancho Fwd Exam Comprehensive
--- NOTE | 2021-04-18 17:02 | CTR_ITS ---
PROCEDURE INFORMATION: Exam: CT Abdomen And Pelvis Without Contrast Exam date and time: 04/18/2021 5:02 PM Age: 76 years old Clinical indication: Abdominal pain; Flank; Right; Prior surgery; Surgery type: Gb, appy; Additional info: Right flank pain TECHNIQUE: Imaging protocol: Computed tomography of the abdomen and pelvis without contrast. Radiation optimization: All CT scans at this facility use at least one of these dose optimization techniques: automated exposure control; mA and/or kV adjustment per patient size (includes targeted exams where dose is matched to clinical indication); or iterative reconstruction. COMPARISON: CT abdomen pelvis w con* [id number] 04/15/2021 11:13 PM RADIATION DOSE METRICS: Total DLP (mGy-cm): 1809.49 FINDINGS: Limitations: The absence of intravenous contrast lessens the sensitivity of this study for solid organ abnormalities. Lungs: Small nodular infiltrate in the left lower lobe which is partly calcified is not significantly changed compared with 04/15/2021 or 01/24/2021. Liver: There is no focal abnormality within the liver. Gallbladder and bile ducts: There has been a cholecystectomy. Pancreas: The pancreas is normal. Spleen: The spleen is normal. Adrenal glands: The adrenal glands are normal. Kidneys and ureters: There is no evidence of hydronephrosis. There is no evidence of renal or ureteral calcifications. There is simple peripelvic cyst lower pole right kidney and small cortical cyst not significantly changed. 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 There is no evidence of hydronephrosis. There is no evidence of renal or ureteral calcifications. There is a thin rim of residual cortical enhancement or hyperdensity in both kidneys of uncertain significance. Both kidneys have a uniform appearance excepting a small focus of cortical scarring in the lower pole of the right kidney. The significance of this finding is not certain. Please correlate with laboratory results and other renal function studies. Stomach and bowel: There is no evidence of colitis/diverticulitis. There is no evidence of intestinal obstruction. Appendix: Not identified Intraperitoneal space: There is no evidence of free intraperitoneal fluid. There is no evidence of free intraperitoneal fluid. Vasculature: The aorta is normal. The aorta demonstrates moderate atherosclerotic calcification. There is no evidence of an abdominal aortic aneurysm. Lymph nodes: There is no evidence of lymphadenopathy. Urinary bladder: There is mild thickening of the urinary bladder wall not changed from previous. Reproductive: Unremarkable as visualized. Bones/joints: The lumbar spine demonstrates mild degenerative changes at multiple levels. Soft tissues: There is a small umbilical hernia containing only fat. CT/CT kidney stone [id number] IMPRESSION: 1. No urinary tract calculi are demonstrated. 2. Unusual appearance of cortical hyperdensity in the kidneys of uncertain significance on what is submitted as a noncontrast examination. Correlation with laboratory findings is suggested. COMMENTS: Consistent with the [employer]'s Incidental Findings Committee white paper (J Am Melvin Radiol 2018): Any incidental renal lesion less than 1 cm or classified as too small to characterize, or any incidental cystic renal lesion characterized as simple-appearing, is likely benign. No follow-up imaging is recommended for these lesions per consensus recommendations based on imaging criteria.
--- NOTE | 2021-04-18 17:10 | ECG_ITS ---
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 Measurements Intervals [place] Rate: 64 P: 81 TN: 212 QRS: 42 QRSD: 94 T: 80 QT: 431 QTc: 447 Interpretive Statements SINUS RHYTHM WITH FIRST DEGREE AV BLOCK LOW QRS VOLTAGE IN PRECORDIAL LEADS [QRS DEFLECTION < 1.0 mV IN CHEST LEADS] Compared to ECG 04/15/2021 23:33:12 Myocardial infarct finding no longer present Electronically Signed On 04-18-2021 19:59:09 MARBLE POLISHER by Sade Garcia M.D. [id number]
[2021-04-18 17:44] VITALS: RESP 20
[2021-04-18] MEDS: morphine 4 mg/mL SDV 1 mL IM (17:44)
[2021-04-18] MEDS: ondansetron 4 MG Tablet PO (17:45)
[2021-04-18 18:12] LABS: Basophils # 0.1 10^3/uL (0.0-0.1); Basophils % 0.6 %; Eosinophils # 0.2 10^3/uL (0.0-0.8); Eosinophils % 1.6 %; Hematocrit 32.6 % (37.0-47.0); Hemoglobin 10.7 g/dL (11.5-15.3); Lymphocytes # 1.3 10^3/uL (0.8-4.8); Lymphocytes % 12.3 %; Mean Corpuscular HGB Conc 32.8 g/dL (30.0-36.0); Mean Corpuscular Hemoglobin 29.6 pg (28.0-34.0); Mean Corpuscular Volume 90.3 fl (81-99); Mean Platelet Volume 10.1 fL (7.4-10.4); Monocytes % 9.5 %; Neutrophils # 7.86 10^3/uL (1.8-7.7); Neutrophils % 75.7 %; Nucleated Red Blood Cells % 0 %; Platelet Count 280 10^3/cmm (130-400); Red Blood Count 3.61 10^6/uL (4.1-5.3); Red Cell Distribution Width 13.4 % (12.1-15.1); White Blood Count 10.4 10^3/uL (4.0-10.0)
[2021-04-18 18:43] LABS: Troponin(5th) Baseline 13 ng/L (0-10)
[2021-04-18 18:45] LABS: Alanine Aminotransferase 24 U/L (0-33); Alkaline Phosphatase 124 IU/L (35-105); Anion Gap 20.2 (5-19); Aspartate Amino Transferase 23 U/L (0-32); Blood Urea Nitrogen 24 mg/dL (8-23); C Reactive Protein 0.9 mg/L (0.0-4.9); Calcium 8.8 mg/dL (8.5-10.5); Carbon Dioxide 23 mmol/L (22-29); Chloride 96 mmol/L (98-107); Globulin 2.6 g/dL (1.3-4.6); Glucose 136 mg/dL (65-115); Lipase 50 U/L (13-60); Osmolality Calculated 286 mOsm/kg (285-295); Potassium 4.2 mmol/L (3.5-5.1); Sodium 135 mmol/L (136-145); Total Bilirubin 0.7 mg/dL (0.15-1.2); Total Protein 6.6 g/dL (6.6-8.7)
[2021-04-18 19:55] LABS: Add Urine Microscopic? YES; Bilirubin Urine Neg (Negative); Blood Urine Neg (Negative); Glucose Urine UA Norm (Normal); Ketones Urine Negative (Negative); Leukocyte Esterase Urine Negative (Negative); Nitrate Urine Negative (Negative); Protein Urine Neg (Negative); Urine Appearance Hazy (CLEAR); Urine Color Yellow (Yellow); Urobilinogen Urine Norm (Negative); pH Urine 5 (5-7)
[2021-04-18 19:56] LABS: Bacteria Urine 1+ /hpf; Hyaline Casts Urine 0-4 /lpf; Mucus Urine 2+ /hpf
--- NOTE | 2021-04-18 21:11 | PC.NURSE ---
See providers assessments.
[2021-04-18 21:12] VITALS: BP 130/69; PULSE 67; RESP 18; TEMP 36.6; O2SAT 93
== END 2021-04-18 21:00 | disposition home or self-care (01) ==
PROVIDERS: Emergency Provider Nurse Practitioner Family; PCP Family Medicine
DX: R10.9 Unspecified abdominal pain (principal); D64.9 Anemia, unspecified
CPT/HCPCS: 74176; 80053; 81001; 83690; 84484; 85025; 86140; 93005; 96372; 99283; J2270; Q0162

== ENCOUNTER 2021-08-13 20:56 | Inpatient (IN) | payer MEDICAID, SELFPAY ==
[2021-08-13 21:08] VITALS: BP 172/85; PULSE 88; RESP 18; TEMP 36.7; O2SAT 95; BMI 36.4
--- NOTE | 2021-08-13 21:18 | ECG_ITS ---
[facility] Test Date: 2021-08-13 Pat Name: Tresa Abrams Department: Room: 253 Gender: Female Injection Molding Technician: : 1945 Requested By: Naun Dorsey Order Number: [id number] Mitchell MD: Edgard Florence M.D. Measurements Intervals [place] Rate: 129 P: -89 PA: 208 QRS: 22 QRSD: 88 T: 78 QT: 315 QTc: 463 Interpretive Statements ECTOPIC ATRIAL TACHYCARDIA LOW QRS VOLTAGE [QRS DEFLECTION < 0.5/1.0 mV IN LIMB/CHEST LEADS] ANTEROSEPTAL MYOCARDIAL INFARCTION , PROBABLY OLD [40+ ms Q WAVE IN V1-V4] Compared to ECG 04/18/2021 18:19:03 Myocardial infarct finding now present Sinus rhythm no longer present First degree AV block no longer present Electronically Signed On 08-14-2021 17:29:23 CDT by Edgard Florence M.D. [id number]
--- NOTE | 2021-08-13 21:18 | XRR_ITS ---
PROCEDURE INFORMATION: Exam: XR Chest Exam date and time: 08/13/2021 9:49 PM Age: 76 years old Clinical indication: Chest wall pain; Additional info: Palpitation TECHNIQUE: Imaging protocol: XR of the chest. Views: 1 view. COMPARISON: CR XR ribs RT mn 3V w CXR1V [id number] 01/24/2021 12:19 PM FINDINGS: Lungs: Unremarkable. No consolidation. Pleural spaces: Unremarkable. No pleural effusion. No pneumothorax. Heart/Mediastinum: Unremarkable. No cardiomegaly. Bones/joints: Unremarkable. XR/XR chest 1V portable [id number] IMPRESSION: No acute findings.
[2021-08-13] MEDS: sodium chloride 0.9% 500 ML IV (21:40)
[2021-08-13 21:41] VITALS: BP 160/74; PULSE 89; RESP 18; O2SAT 95
[2021-08-13 21:45] LABS: Basophils % 0.5 %; Eosinophils # 0.2 10^3/uL (0.0-0.8); Eosinophils % 2.4 %; Hematocrit 38.6 % (37.0-47.0); Hemoglobin 12.6 g/dL (11.5-15.3); Lymphocytes # 1.6 10^3/uL (0.8-4.8); Lymphocytes % 20.1 %; Mean Corpuscular HGB Conc 32.6 g/dL (30.0-36.0); Mean Corpuscular Volume 88.7 fl (81-99); Mean Platelet Volume 9.8 fL (7.4-10.4); Monocytes # 0.8 10^3/uL (0.2-0.9); Monocytes % 10.2 %; Neutrophils # 5.34 10^3/uL (1.8-7.7); Neutrophils % 66.6 %; Nucleated Red Blood Cells % 0 %; Platelet Count 301 10^3/cmm (130-400); Red Blood Count 4.35 10^6/uL (4.1-5.3); Red Cell Distribution Width 12.8 % (12.1-15.1)
--- NOTE | 2021-08-13 21:47 | ED_ITS ---
HPI - General Adult General: Chief complaint: Arrhythmia/Palpitations Stated complaint: Weak Hot Time Seen by Provider: 08/13/21 21:17 History of Present Illness: Patient is a 76-year-old female with a history of hypertension who presents the emergency room for complaints of palpitation diarrhea. Patient tells me for the last 3 days, she has had intermittent loose stool. However around the same time, patient has noted runs of palpitation and lightheadedness. Patient decided to come to the emergency room for further evaluation. Patient denies any vomiting, nausea or decreased p.o. intake. Patient denies any fever chills, chest pain, short of breath, melena medic easier. No urinary complaints at this time. Patient denies any history of arrhythmia, CAD, prior history of smoking. Onset:3 days ago Duration:3 days Location:home Severity:moderate Associated symptoms: Reports palpitations; Deny chest pain, dyspnea, nausea, rash or vomiting Review of Systems Const: Denies: fever(s) or chills Eyes: Denies: change in vision ENMT: Denies: mouth pain Card: Reports: palpitations; Denies: chest pain Resp: Denies: dyspnea or non-productive cough GI: Denies: abdominal pain, nausea, vomiting or diarrhea : Denies: dysuria Musc: Denies: extremity pain Skin/Breast: Denies: rash or new lesions Neuro: Denies: weakness in extremities Psych: Reports: other (Normal mood) Jose A/Lymph: Denies: easy bruising PFS ED PFSH: Medical History (Updated 08/17/21 @ 00:01 by ) Hypertension Social History Smoking and tobacco status: never smoked Alcohol intake: never Physical Exam Const: COMMON NORMALS: alert HENMT: COMMON NORMALS: atraumatic HEAD & SCALP: atraumatic MOUTH: moist mucous membranes not abnormal Eye: COMMON NORMALS: EOMs intact bilaterally and conjunctivae normal CONJUNCTIVA: Yes conjunctivae normal Neck/C-Spine: COMMON NORMALS: full ROM and supple Resp: COMMON NORMALS: normal respiratory effort and clear to auscultation bilaterally AUSCULTATION: clear to auscultation bilaterally Cardio: COMMON NORMALS: regular rate RATE: regular rate GI: COMMON NORMALS: Soft to palpation and non-tender PALPATION: Yes Soft to palpation Extremity: COMMON NORMALS: full ROM Neuro: SENSORIUM/ORIENTATION: Yes alert MOTOR EXAM: No Abnormal motor strength present and Other motor observations present (no focal motor deficits) Psych: COMMON NORMALS: speech normal SPEECH: Yes normal speech MOOD & AFFECT: Yes euthymic mood Course Vital Signs: Vital signs: Vital Signs Temperature 98.3 F 08/16/21 11:14 Pulse Rate 63 08/16/21 11:14 Respiratory Rate 18 08/16/21 11:14 Blood Pressure 138/77 08/16/21 11:14 Pulse Oximetry 93 08/16/21 11:14 [facility] - General Adult Medical Decision Making 76-year-old female with history of hypertension presenting to the emergency room for evaluation of palpitation and loose stool. Physical exam, patient is hemodynamically stable. No other focal findings. While patient was observed in the emergency room, she was noted to have runs of SVTs in the 130s 140s. Patient had multiple episodes of SVT lasting for 1 minute that broke with vagal maneuver prior to administration of medicine. Patient received 50 mg metoprolol p.o. and 500 cc of IVF. Laboratory evaluation largely within normal limit today. Given new findings of recurrent SVT which patient did not have previously, patient will be added to the hospital for telemetry and structural cardiac evaluation. Disposition: admission Lab Data : 08/13/21 21:35 08/15/21 05:07 Radiology Impressions Chest X-Ray 08/13/21 21:18 IMPRESSION: No acute findings. Laboratory Results WBC 8.0 10^3/uL (4.0-10.0) 08/13/21 21:35 RBC 4.35 10^6/uL (4.1-5.3) 08/13/21 21:35 Hgb 12.6 g/dL (11.5-15.3) 08/13/21 21:35 Hct 38.6 % (37.0-47.0) 08/13/21 21:35 MCV 88.7 fl (81-99) 08/13/21 21:35 MCH 29.0 pg (28.0-34.0) 08/13/21 21:35 MCHC 32.6 g/dL (30.0-36.0) 08/13/21 21:35 RDW 12.8 % (12.1-15.1) 08/13/21 21:35 Plt Count 301 10^3/cmm (130-400) 08/13/21 21:35 MPV 9.8 fL (7.4-10.4) 08/13/21 21:35 Neut % (Auto) 66.6 % 08/13/21 21:35 Lymph % (Auto) 20.1 % 08/13/21 21:35 [place] % (Auto) 10.2 % 08/13/21 21:35 Eos % (Auto) 2.4 % 08/13/21 21:35 Baso % (Auto) 0.5 % 08/13/21 21:35 Neut # (Auto) 5.34 10^3/uL (1.8-7.7) 08/13/21 21:35 Lymph # (Auto) 1.6 10^3/uL (0.8-4.8) 08/13/21 21:35 [place] # (Auto) 0.8 10^3/uL (0.2-0.9) 08/13/21 21:35 Eos # (Auto) 0.2 10^3/uL (0.0-0.8) 08/13/21 21:35 Baso # (Auto) 0.0 10^3/uL (0.0-0.1) 08/13/21 21:35 Nucleated RBC % (auto) 0 % 08/13/21 21:35 Nucleated RBCs # 0.0 /100WBC 08/13/21 21:35 Sodium 138 mmol/L (136-145) 08/13/21 21:35 Potassium 3.5 mmol/L (3.5-5.1) 08/13/21 21:35 Chloride 98 mmol/L (98-107) 08/13/21 21:35 Carbon Dioxide 26 mmol/L (22-29) 08/13/21 21:35 Anion Gap 17.5 (5-19) 08/13/21 21:35 BUN 23 mg/dL (8-23) 08/13/21 21:35 Creatinine 1.1 mg/dL (0.5-0.9) H 08/13/21 21:35 GFR Calculation Not Reportable 08/13/21 21:35 Glucose 186 mg/dL (65-115) H 08/13/21 21:35 Calculated Osmolality 295 mOsm/kg (285-295) 08/13/21 21:35 Calcium 10.4 mg/dL (8.5-10.5) 08/13/21 21:35 Magnesium 1.6 mg/dL (1.7-2.3) L 08/13/21 21:35 Total Bilirubin 0.6 mg/dL (0.15-1.2) 08/13/21 21:35 AST 16 U/L (0-32) 08/13/21 21:35 ALT 18 U/L (0-33) 08/13/21 21:35 Alkaline Phosphatase 130 IU/L (35-105) H 08/13/21 21:35 Troponin T Baseline 11 ng/L (0-10) H 08/13/21 21:35 Total Protein 7.8 g/dL (6.6-8.7) 08/13/21 21:35 Albumin 4.3 g/dL (3.5-5.2) 08/13/21 21:35 Globulin 3.5 g/dL (1.3-4.6) 08/13/21 21:35 Lipase 62 U/L (13-60) H 08/13/21 21:35 TSH 4.16 uIU/mL (0.27-4.20) 08/13/21 21:35 Free T4 1.04 ng/dL (0.82-1.77) 08/13/21 21:35 Imaging Data Other Imaging: Radiologist's impression: [address] [address] XRay Report Signed Patient: Tresa Abrams Unit #: [id number] : 1945 Age/Sex: 76 / F ADM Date: 08/13/21 Loc: ER Room/Bed: Attending Dr: Ordering Provider/Ordering MD: Naun Dorsey MD Date of Service: 08/13/21 Procedure(s): XR chest 1V portable [id number] Accession Number(s): [id number] Report Number: [id number] PROCEDURE INFORMATION: Exam: XR Chest Exam date and time: 08/13/2021 9:49 PM Age: 76 years old Clinical indication: Chest wall pain; Additional info: Palpitation TECHNIQUE: Imaging protocol: XR of the chest. Views: 1 view. COMPARISON: CR XR ribs RT mn 3V w CXR1V [id number] 01/24/2021 12:19 PM FINDINGS: Lungs: Unremarkable. No consolidation. Pleural spaces: Unremarkable. No pleural effusion. No pneumothorax. Heart/Mediastinum: Unremarkable. No cardiomegaly. Bones/joints: Unremarkable. XR/XR chest 1V portable [id number] IMPRESSION: No acute findings. ? Dictated By: Michael Singleton MD Signed By: Michael Singleton MD Signed Date/Time: 08/13/212258 DD/ 48 Discharge Plan Discharge Patient Disposition: Admitted As Inpatient Admit Provider: Mikayla Ma Clinical Impression: Sustained SVT, Palpitations Condition: Stable Discharge Diet: Cardiac and Low Salt Discharge Activity: Resume usual activity Coding Level of Care Code ED Fertilizer Processing Supervisor for Chg Fwd Exam Comprehensive
[2021-08-13 22:00] VITALS: BP 165/72; PULSE 86; O2SAT 95
[2021-08-13] MEDS: metoprolol tartrate 1 mg/1 mL SDV 5 mL 5 MG IVP (22:02)
[2021-08-13] MEDS: metoprolol succinate ER (24 HR) 50 mg Tablet PO (22:03)
[2021-08-13 22:04] LABS: Troponin(5th) Baseline 11 ng/L (0-10)
[2021-08-13 22:12] LABS: Alanine Aminotransferase 18 U/L (0-33); Albumin Level 4.3 g/dL (3.5-5.2); Alkaline Phosphatase 130 IU/L (35-105); Anion Gap 17.5 (5-19); Aspartate Amino Transferase 16 U/L (0-32); Blood Urea Nitrogen 23 mg/dL (8-23); Calcium 10.4 mg/dL (8.5-10.5); Carbon Dioxide 26 mmol/L (22-29); Chloride 98 mmol/L (98-107); Free T4 Free Thyroxine 1.04 ng/dL (0.82-1.77); Globulin 3.5 g/dL (1.3-4.6); Glucose 186 mg/dL (65-115); Lipase 62 U/L (13-60); Magnesium 1.6 mg/dL (1.7-2.3); Osmolality Calculated 295 mOsm/kg (285-295); Potassium 3.5 mmol/L (3.5-5.1); Sodium 138 mmol/L (136-145); Thyroid Stimulating Hormone 4.16 uIU/mL (0.27-4.20); Total Bilirubin 0.6 mg/dL (0.15-1.2); Total Protein 7.8 g/dL (6.6-8.7)
[2021-08-13 22:41] VITALS: BP 143/63; PULSE 82; RESP 18; O2SAT 95
[2021-08-13] MEDS: magnesium sulfate premix 2 GM/50 ML PIGGYBACK IV (23:06)
--- NOTE | 2021-08-13 23:11 | PM.HP ---
Providers/Chief Complaint Chief Complaint: Weak Hot History of Present Illness The patient is a 76-year-old female who presents with chief complaint of felt faint . She states the symptoms are approximately 3 days prior to hospitalization and have been intermittent since that time. Patient has known history of SVT and she is found to be in SVT in the emergency department. She admits to abdominal pain, diarrhea, lightheadedness, and a sensation of rapid heartbeat. She denies fever, rigors, nausea, vomiting, cough, wheeze, chest pain, dyspnea, dizziness, diaphoresis, palpitations, sensation of irregular heartbeat. She presents for further evaluation Review of Systems General: Reports: 10 or more systems reviewed and unremarkable except in HPI and below Medications/Allergies Home Medications Medication Instructions Recorded Confirmed Last Taken Type carvedilol 25 mg tablet 25 mg PO BID #60 tab 05/13/19 Unknown Rx diphenoxylate-atropine 2.5 1 tab PO Q8H PRN #10 tab 10/02/19 Unknown Rx mg-0.025 mg tablet (Lomotil) spironolactone 25 mg tablet 25 mg PO DAILY #30 tab 01/13/20 Unknown Rx hydrocortisone acetate 25 mg 25 mg AL DAILY #10 ea 04/16/21 Unknown Rx rectal suppository (Anusol-HC) hydrocodone 5 mg-acetaminophen 325 1 tab PO Q8H PRN #10 tab 04/18/21 Unknown Rx mg tablet Allergies Allergy/AdvReac Type Severity Reaction Status Date / Time Penicillins Allergy Unknown Verified 01/24/21 12:01 PFSH Acute PFSH: Medical History Hypertension Social History Smoking and tobacco status: never smoked Alcohol intake: never Substance/Drug Use: never Vitals/I&O/Wt Last Vital Signs Temp 98.1 F 08/13/21 21:08 Pulse 88 08/13/21 21:08 Resp 18 08/13/21 21:08 BP 172/85 08/13/21 21:08 Pulse Ox 95 08/13/21 21:08 Weight last 48 hrs Weight 102.512 kg Physical Exam Narrative: General: -Alert -No acute distress -No dyspnea -No tachypnea Head: -Atraumatic -Normocephalic Eyes: -Pupils equally round and reactive to light and accommodation -Extraocular muscles intact Neurological: -Cranial nerves II-XII intact Neck: -No jugular venous distention -No thyromegaly -No cervical lymphadenopathy Heart: -Regular rate -Regular rhythm -No murmurs -No gallops -No rubs Lungs: -No wheeze -No rhonchi -No rales ? Abdomen: -Normal bowel sounds in all four quadrants -No rebound -No guarding -No tenderness Extremities: -2/4 pulse in all four extremities -No clubbing -No cyanosis -No edema -No calf tenderness present bilaterally -Negative Mansi?s sign bilaterally Musculoskeletal: -5/5 bilateral upper extremity strength -5/5 bilateral lower extremity strength -Sensorium of bilateral upper extremities are equal and intact -Sensorium of bilateral lower extremities are equal and intact ? Additional Details / Additional Findings / Exceptions / Miscellaneous: Data : 08/13/21 21:35 08/13/21 21:35 A&P Assessment and plan (1) Sustained SVT: Status: Acute Plan SVT. Patient has prior known history of SVT. Will monitor patient on telemetry and checks her cardiac enzymes. Patient is hypomagnesemic which is been repleted. TSH and free T4 within normal limits. On the morning of August 14, 2021 we will recheck EKG. Echocardiogram pending. Chest x-ray?portable report pending. Metoprolol 75 Mill grams by mouth twice a day History of hypothyroidism. TSH and free T4 are currently within normal limits Hypomagnesemia. Will monitor magnesium level intermittently and supplement as necessary Acute renal insufficiency. IV normal saline at 75 ML's per hour. Will monitor creatinine intermittently Elevated lipase. Patient has no symptoms of pancreatitis. I will keep the patient nothing by mouth overnight we will recheck lipase level on the morning of August 14, 2021. IV normal saline at 75 ML's per hour Hypertension. Metoprolol 75 Mill grams by mouth twice a day Morbid obesity. The patient will be counseled regarding lifestyle modification History of abnormal CT of bilateral kidneys. Outpatient follow-up with her primary care physician or with a provider Diverticulosis DVT prophylaxis. Heparin 5000 units subcu tensely every 12 hours Attestations Medical Necessity Statement*: The patient's anticipated length of stay is greater than 2 midnights for control of her SVT Coding Level of Care Code Acute Emergency Room Physician Assistant for Chg Fwd Diagnoses Sustained SVT I47.1
--- NOTE | 2021-08-13 23:18 | ECG_ITS ---
[facility] Test Date: 2021-08-13 Pat Name: Tresa Abrams Department: Room: 253 Gender: Female Register In Chancery: : 1945 Requested By: Naun Dorsey Order Number: [id number] Mitchell MD: Edgard Florence M.D. Measurements Intervals [place] Rate: 82 P: 73 NC: 229 QRS: 24 QRSD: 89 T: 69 QT: 373 QTc: 437 Interpretive Statements SINUS RHYTHM WITH FIRST DEGREE AV BLOCK LOW QRS VOLTAGE IN PRECORDIAL LEADS [QRS DEFLECTION < 1.0 mV IN CHEST LEADS] ANTEROSEPTAL MYOCARDIAL INFARCTION , PROBABLY OLD [40+ ms Q WAVE IN V1-V4] Compared to ECG 04/18/2021 18:19:03 Myocardial infarct finding now present Electronically Signed On 08-14-2021 17:32:48 CDT by Edgard Florence M.D. [id number]
[2021-08-13 23:43] LABS: Troponin 5 2HR 11.09 ng/L (0-10)
[2021-08-13 23:47] VITALS: BP 152/75; PULSE 84; RESP 16; O2SAT 94
[2021-08-13 23:47] LABS: Troponin 5 2HR Delta 0.09 ABS# (0-10)
[2021-08-13] MEDS: calcium carbonate 500 mg Chew Tablet PO (23:52)
[2021-08-14] VITALS (10 sets, daily range): BP systolic 152–178; BP diastolic 73–84; PULSE 63–127; RESP 16–20; TEMP 36.2–36.9; O2SAT 92–96; BMI 37.1
--- NOTE | 2021-08-14 00:18 | USCV_ITS ---
Tresa Abrams Age: 76 Gender: F : 1945 Exam Date: 08/14/2021 01:38 Ordering Phys: Mikayla aM DO Technologist: NATHALIE Exam Location[place] [facility] [place] Indication: SVT BP: / HR: 81 Rhythm: Sinus Technical Quality: Adequate MEASUREMENTS (Male / Female) Normal Values 2D ECHO LV Diastolic Diameter PLAX 4.6 cm 4.2 - 5.9 / 3.9 - 5.3 cm LV Systolic Diameter PLAX 1.9 cm IVS Diastolic Thickness 1.0 cm 0.6 - 1.0 / 0.6 - 0.9 cm IVS Systolic Thickness 2.5 cm LVPW Diastolic Thickness 1.7 cm 0.6 - 1.0 / 0.6 - 0.9 cm LVPW Systolic Thickness 2.8 cm LVOT Diameter 1.7 cm LV Ejection Fraction 2D Teich 88.3 % LV Ejection Fraction MOD 2C 63.5 % LV Ejection Fraction 2C AL 68.1 % LA Diameter 4.9 cm LA Width 4.6 cm LA Height 6.8 cm RA Width 2.9 cm RA Height 5.1 cm Aorta at Sinotubular Diameter 1.6 cm IVC Diameter 1.8 cm M-MODE Aortic Annulus Diameter 2.3 cm LA Ao Ratio MM 2.5 MV E Point Septal Separation 0.6 cm DOPPLER AV Peak Velocity 201.0 cm/s LVOT Peak Velocity 160.0 cm/s AV Area Cont Eq vti 1.8 cm squared AV Area Cont Eq pk 1.8 cm squared MV Peak Velocity 141.0 cm/s MV Area PHT 2.7 cm squared Mitral E to A Ratio 1.1 MV E' Velocity 138.0 cm/s TR Peak Velocity 288.1 cm/s TR Peak Gradient 33.2 mmHg TR Mean Velocity 252.8 cm/s TR Mean Gradient 26.1 mmHg TR Velocity Time Integral 95.8 cm Right Atrial Pressure 10.0 mmHg Pulmonary Artery Systolic Pressu 43.2 mmHg PV Peak Velocity 127.0 cm/s RV Acceleration Time 0.1 s RV Ejection Time 0.4 s RV AcT/ET 0.3 FINDINGS Left Ventricle Normal left ventricular size. LV systolic function is normal with EF of 60-65%. No regional wall motion abnormalities. Right Ventricle The right ventricle is normal in size and function. Right Atrium The right atrium is normal in size. Left Atrium The left atrium is dilated Mitral Valve Structurally normal mitral valve without significant stenosis or prolapse. There is mild mitral regurgitation. Aortic Valve Structurally normal aortic valve without significant sclerosis or stenosis. There is no aortic regurgitation. Tricuspid Valve Structurally normal tricuspid valve without significant stenosis. Mild tricuspid regurgitation. Pulmonary artery systolic pressure is normal. Pulmonic Valve Structurally normal pulmonic valve without significant stenosis. There is no pulmonic regurgitation. Pericardium Normal pericardium without effusion. Aorta Normal ascending aorta dimension. CONCLUSIONS LV systolic function is normal with EF of 60-65% Left atrial enlargement Mild mitral regurgitation Mild tricuspid regurgitation No comparison studies are available Edgard Florence MD (Electronically Signed) Final Date: 14 Aug 2021 11:34 S
[2021-08-14] MEDS: sodium chloride 0.9% 1,000 ML 75 ML IV ×2 (00:39→13:30)
[2021-08-14] MEDS: heparin 5,000 unit/mL INJ 1 mL 5000 UNIT SUBCUT ×2 (00:39→12:19)
--- NOTE | 2021-08-14 03:18 | ECG_ITS ---
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 Measurements Intervals [place] Rate: 135 P: 256 ME: 147 QRS: 12 QRSD: 128 T: 84 QT: 319 QTc: 479 Interpretive Statements SINUS TACHYCARDIA ANTEROSEPTAL MYOCARDIAL INFARCTION , OF INDETERMINATE AGE [40+ ms Q WAVE IN V1-V4] Compared to ECG 04/18/2021 18:19:03 Myocardial infarct finding now present Sinus rhythm no longer present First degree AV block no longer present Electronically Signed On 08-14-2021 17:33:54 CDT by Edgard Florence M.D. [email or web address]
[2021-08-14 05:17] LABS: Troponin 5 6HR 10.18 ng/L (0-10)
[2021-08-14 05:18] LABS: Troponin 5 6HR Delta -0.82 ng/L (0-12)
[2021-08-14 05:28] LABS: Lipase 31 U/L (13-60); Magnesium 1.8 mg/dL (1.7-2.3)
--- NOTE | 2021-08-14 05:54 | NUR.SHIFT ---
Oriented with stable vs since admission. No complaints of pain made. Up with stand by assist able to ambulate into restroom, continent and voiding without difficulty. Telemetry initiated upon admission. Does have IV in left antecubital that is infusing ns at 75ml/hr per orders. NPO.
[2021-08-14] MEDS: metoprolol tartrate 50 mg Tablet 75 MG PO ×2 (09:38→16:59)
--- NOTE | 2021-08-14 13:59 | P.PN_ITS ---
Subjective Subjective: Seen this AM. Telemetry reviewed. I was informed by telemetry nurse that telemetry leads were hooked up incorrectly and therefore we cannot get accurate reading overnight. There was a lot of artifact on telemetry. EKG was repeated did not show any evidence of SVT this morning. She does have a known history of first-degree AV block. She denies any chest pain, shortness of breath and feels well this morning. Daughters are present at bedside. Vitals/I&O/Wt Last Vital Signs Temp 97.9 F 08/14/21 11:06 Pulse 66 08/14/21 11:06 Resp 16 08/14/21 11:06 BP 152/76 08/14/21 11:06 Pulse Ox 93 08/14/21 11:06 08/13/21 08/14/21 08/14/21 22:59 06:59 14:59 Intake Total 550 / 550 1083.75 / 1083.75 Output Total 200 / 200 250 / 250 Balance 350 / 350 833.75 / 833.75 Weight last 48 hrs Weight 104.326 kg Weight 102.512 kg Physical Exam Narrative: General: Alert oriented x3, patient seen sitting up in bed appearing comfortable HEENT: Normocephalic, atraumatic, EOMI, breathing normally Cardio: Regular rate rhythm, normal S1-S2, Respiratory: Clear to auscultation bilaterally no wheezes no rhonchi GI: Abdomen soft, nontender, nondistended, bowel sounds + Extremities: no edema, no cyanosis Data : 08/13/21 21:35 08/13/21 21:35 A&P Assessment and plan (1) Sustained SVT: Status: Acute (2) Palpitations: Status: Acute Plan #SVT #Hypothyroidism #Electrolyte imbalance #Acute renal insufficiency #Elevated lipase on admission #Hypertension #Obesity #Diverticulosis #History of abnormal CT of bilateral kidneys ? Patient has a prior known history of SVT as per admission note . Patient states however that she has had abnormal heart rhythm in the past but is unsure what exactly she had. She is unsure if she has atrial fibrillation versus SVT or any other arrhythmia. She sees Dr. Henry here in [place]. She takes Coreg at home. On admission Coreg was discontinued and she was started on metoprolol 75 twice daily. She has not had further SVT episodes since admission. However telemetry leads were connected incorrectly and we could not get telemetry reading on her overnight. Echocardiogram complete. LVEF 60 to 65%, left atrial enlargement with mild mitral regurgitation present. Delta tro ponin negative on admission. She states she has never seen a environmental inspector before. ? Continue patient's home antihypertensives ? Replete electrolytes as needed. Keep potassium above 4 magnesium above 2 ? Lipase normalized. ? Discontinue IV fluids. ? She will follow-up with primary care for cortical density of kidneys of uncertain significance. Full code Daughter was updated at bedside Attestations Medical Necessity Statement*: Patient will need continued monitoring on telemetry overnight. Potential discharge in the morning. Coding Level of Care Code Acute Library Serials Assistant for madeline Romo Diagnoses Sustained SVT I47.1 Palpitations R00.2
--- NOTE | 2021-08-14 14:15 | PC.CHAP ---
Pastoral Care Encounter/Spiritual Assessment Type of Contact [] Declined electrical engineering draftsperson visit [] Patient/Family/Request visit [] Outpatient visit [] Follow-up visit [] Physician referral [] Code/Alert [x] Routine visit [] Staff referral [] Actively dying [x] Patient sleeping [] Family support [] [] Out of room [] Palliative care [] [] Receiving care in room [] Pre-surgical visit [] Trauma [] Long length of stay [] ICU visit [] Other: Relational/Emotional Strength [] Patient feels connected with others/family/visitors/staff [] Distress [] Loneliness/isolation [] Abandonment Spirituality of Patient [] Person of Adriana [] Attends Sikh of their Adriana [] Believes in Prayer [] Reads Bible or Yarsani materials [] There are Spiritual issues to be addressed Pre Sales Network Engineer Interventions [] Prayer [] Active listening [] Non-anxious presence [] Spiritual/emotional support [] Crisis/trauma care [] Spiritual counseling [] Bereavement support [] Provided bereavement packet [] Provided Bible/devotional materials [] Provided toy/stuffed animal, coloring book to patient or family member [] Provided Communion [] Anointing/[place] [] Salvation [] Completed spiritual assessment [] Other: Impact on Illness or Injury [] Angry [] Fearful [] Anxious [] Often cries [] Exhaustion [] Unable to work [] Unable to attend buddhism [] Unable to walk/stand [] Unable to read [] Unable to drive [] Unable to eat/drink [] Unable to sleep [] Unable to be with family [] Patient intubated [] Other: Summary Time spent with patient
[2021-08-14] MEDS: atorvastatin 40 mg Tablet PO (16:59)
[2021-08-14] MEDS: metformin XR 500 MG Tablet PO (16:59)
[2021-08-14] MEDS: ferrous sulfate EC 325 mg Tablet PO (16:59)
[2021-08-15] VITALS (8 sets, daily range): BP systolic 151–186; BP diastolic 70–93; PULSE 63–75; RESP 16–20; TEMP 36.4–36.9; O2SAT 92–95
[2021-08-15] MEDS: heparin 5,000 unit/mL INJ 1 mL 5000 UNIT SUBCUT ×2 (00:17→12:12)
[2021-08-15] MEDS: sodium chloride 0.9% 1,000 ML 75 ML IV (02:48)
[2021-08-15] MEDS: hydroCHLOROthiazide 25 mg Tablet PO (05:16)
[2021-08-15] MEDS: fluoxetine 20 mg Capsule 40 MG PO (05:16)
--- NOTE | 2021-08-15 05:45 | NUR.SHIFT ---
Up to bathroom independently. Patient denies dizziness this shift. Telemetry with first degree av block but rate controlled. NS infusing at 75ml/hr per orders. Had no complaints of pain this shift.
--- NOTE | 2021-08-15 06:11 | PC.NURSE ---
Encouraged patient to get up to chair for breakfast this morning.
[2021-08-15 06:54] LABS: Anion Gap 15.7 (5-19); Blood Urea Nitrogen 12 mg/dL (8-23); Calcium 9.6 mg/dL (8.5-10.5); Carbon Dioxide 27 mmol/L (22-29); Chloride 102 mmol/L (98-107); Glucose 161 mg/dL (65-115); Magnesium 1.8 mg/dL (1.7-2.3); Osmolality Calculated 295 mOsm/kg (285-295); Potassium 3.7 mmol/L (3.5-5.1); Sodium 141 mmol/L (136-145)
[2021-08-15] MEDS: metformin XR 500 MG Tablet PO ×2 (07:46→16:49)
[2021-08-15] MEDS: metoprolol tartrate 50 mg Tablet 75 MG PO ×2 (07:47→16:48)
[2021-08-15] MEDS: lisinopril 20 mg Tablet 40 MG PO (07:48)
[2021-08-15] MEDS: amlodipine 10 mg Tablet PO (07:48)
[2021-08-15] MEDS: ferrous sulfate EC 325 mg Tablet PO ×2 (07:49→16:47)
[2021-08-15] MEDS: hyDRALAzine 25 mg Tablet PO ×2 (12:12→20:24)
--- NOTE | 2021-08-15 14:46 | PM.PN ---
Subjective Subjective: Seen this AM. Blood pressure still elevated. Vitals/I&O/Wt Last Vital Signs Temp 98.1 F 08/15/21 11:48 Pulse 63 08/15/21 11:48 Resp 18 08/15/21 11:48 BP 156/73 08/15/21 11:48 Pulse Ox 92 08/15/21 11:48 08/14/21 08/15/21 08/15/21 22:59 06:59 14:59 Intake Total 240 / 1323.75 997.5 / 2321.25 240 / 240 Output Total 400 / 650 1100 / 1100 Balance 240 / 1073.75 597.5 / 1671.25 -860 / -860 Weight last 48 hrs Weight 104.326 kg Weight 102.512 kg Physical Exam Narrative: General: Alert oriented x3, patient seen sitting up in bed appearing comfortable HEENT: Normocephalic, atraumatic, EOMI, breathing normally Cardio: Regular rate rhythm, normal S1-S2, Respiratory: Clear to auscultation bilaterally no wheezes no rhonchi GI: Abdomen soft, nontender, nondistended, bowel sounds + Extremities:? no edema, no cyanosis Data : 08/13/21 21:35 08/15/21 05:07 A&P Assessment and plan (1) Sustained SVT: Status: Acute (2) Palpitations: Status: Acute (3) Uncontrolled hypertension: Status: Acute Plan #SVT #Hypothyroidism #Electrolyte imbalance #Acute renal insufficiency #Elevated lipase on admission #Uncontrolled hypertension #Obesity #Diverticulosis #History of abnormal CT of bilateral kidneys ? Patient has a prior known history of SVT as per admission note .? Labs reviewed overnight. Echocardiogram complete.? LVEF 60 to 65%, left atrial enlargement with mild mitral regurgitation present. Delta troponin negative on admission.? She states she has never seen a traffic ii manager before. -Continue metoprolol 75 twice daily. Set of heart monitor at discharge. ? Continue lisinopril 40 daily. Add hydralazine 25 3 times daily. Monitor in the hospital with new antihypertensive regimen. If blood pressure stays stable by tomorrow we will discharge home with heart monitor. ? Replete electrolytes as needed.? Keep potassium above 4 magnesium above 2 ? She will follow-up with primary care for cortical density of kidneys of uncertain significance. -Follow-up with cardiology at discharge. Full code Attestations Medical Necessity Statement*: Requires optimization of blood pressure medications and monitoring in the hospital for tonight. Plan to discharge tomorrow. Coding Level of Care Code Acute Aluminum Welder for Sancho Lewisd Diagnoses Sustained SVT I47.1 Palpitations R00.2 Uncontrolled hypertension I10
[2021-08-15] MEDS: atorvastatin 40 mg Tablet PO (16:49)
[2021-08-16] VITALS: BP 167/82; PULSE 72; RESP 19; TEMP 36.8; O2SAT 92
[2021-08-16] MEDS: heparin 5,000 unit/mL INJ 1 mL 5000 UNIT SUBCUT (00:02)
[2021-08-16 04:00] VITALS: BP 184/79; PULSE 90; RESP 18; TEMP 36.7; O2SAT 96
[2021-08-16] MEDS: sodium chloride 0.9% 1,000 ML 75 ML IV (05:33)
[2021-08-16] MEDS: hydroCHLOROthiazide 25 mg Tablet PO (05:34)
[2021-08-16] MEDS: fluoxetine 20 mg Capsule 40 MG PO (05:34)
[2021-08-16 06:00] VITALS: PULSE 66
[2021-08-16 07:31] VITALS: BP 178/80; PULSE 72; RESP 18; TEMP 36.8; O2SAT 95
[2021-08-16] MEDS: hyDRALAzine 25 mg Tablet PO (08:58)
[2021-08-16] MEDS: metoprolol tartrate 50 mg Tablet 75 MG PO (08:58)
[2021-08-16] MEDS: lisinopril 20 mg Tablet 40 MG PO (08:58)
[2021-08-16] MEDS: amlodipine 10 mg Tablet PO (08:58)
[2021-08-16] MEDS: ferrous sulfate EC 325 mg Tablet PO (08:58)
[2021-08-16] MEDS: metformin XR 500 MG Tablet PO (08:59)
--- NOTE | 2021-08-16 09:30 | P.DS_ITS ---
Discharge Providers Date of Admission: 08/13/21 23:05 Date of Discharge: August 15, 2021 Attending Provider at Admission: Mikayla Ma DO Attending Provider at Discharge: Vanessa Morales MD Diagnoses at Discharge Discharge Diagnosis (1) Sustained SVT: Status: Acute (2) Palpitations: Status: Acute Reason for Visit Reason for Visit: Weak Hot Brief History: The patient is a 76-year-old female who presents with chief complaint of felt faint .? She states the symptoms are approximately 3 days prior to hospita lization and have been intermittent since that time.? Patient has known history of SVT and she is found to be in SVT in the emergency department.? She admits to abdominal pain, diarrhea, lightheadedness, and a sensation of rapid heartbeat.? She denies fever, rigors, nausea, vomiting, cough, wheeze, chest pain, dyspnea, dizziness, diaphoresis, palpitations, sensation of irregular heartbeat.? She pr esents for further evaluation Hospital Course Hospital Course Patient was admitted for SVT. She has a known history of SVT. She states she started feeling faint and had palpitations before she came in. When she was in the ER she was started on metoprolol 75 twice daily. She was monitored on telemetry overnight. She does have a first-degree AV block. No other heart blocks were identified on telemetry. EKG was also reviewed. Unsure if she has bouts of A. fib in between. Case was discussed with cardiology. Patient will be discharged home on metoprolol 75 twice daily and with a cardiac event monitor. She is in agreement. She will follow-up with cardiology in a month. During hospital stay her blood pressure was also noted to be elevated. Patient stated that she takes clonidine as needed at home every 6 hours. She needs it maybe once a week at most. She is on lisinopril 40 twice daily at home. Coreg was stopped. Echo was also completed at this admission with LVEF 60 to 65% with left atrial enlargement and mild mitral regurgitation present. Medication adjustments were made. She will be sent home on lisinopril 40 daily, amlodipine 10 daily, metoprolol 75 twice daily, hydrochlorothiazide 25 daily and hydralazine 25 TID. She has been asked to check her blood pressure at home and keep a log sheet for her primary care. She will be seeing her primary care doctor within a week of discharge. Physical Exam Narrative: General: Alert oriented x3, patient seen sitting up in bed appearing comfortable HEENT: Normocephalic, atraumatic, EOMI, breathing normally Cardio: Regular rate rhythm, normal S1-S2, Respiratory: Clear to auscultation bilaterally no wheezes no rhonchi GI: Abdomen soft, nontender, nondistended, bowel sounds + Extremities:? no edema, no cyanosis ? Discharge Data Studies Completed and Pending Completed Studies During Hospitalization Category Date Time Status XR chest 1V portable [id number] Urgent Exams 08/13/21 21:18 Completed CV. echo complete* [id number] Routine Ultrasound 08/14/21 00:18 Completed Radiology Impressions Chest X-Ray 08/13/21 21:18 IMPRESSION: No acute findings. Laboratory Results WBC 8.0 10^3/uL (4.0-10.0) 08/13/21 21:35 RBC 4.35 10^6/uL (4.1-5.3) 08/13/21 21:35 Hgb 12.6 g/dL (11.5-15.3) 08/13/21 21:35 Hct 38.6 % (37.0-47.0) 08/13/21 21:35 MCV 88.7 fl (81-99) 08/13/21 21:35 MCH 29.0 pg (28.0-34.0) 08/13/21 21:35 MCHC 32.6 g/dL (30.0-36.0) 08/13/21 21:35 RDW 12.8 % (12.1-15.1) 08/13/21 21:35 Plt Count 301 10^3/cmm (130-400) 08/13/21 21:35 MPV 9.8 fL (7.4-10.4) 08/13/21 21:35 Neut % (Auto) 66.6 % 08/13/21 21:35 Lymph % (Auto) 20.1 % 08/13/21 21:35 [place] % (Auto) 10.2 % 08/13/21 21:35 Eos % (Auto) 2.4 % 08/13/21 21:35 Baso % (Auto) 0.5 % 08/13/21 21:35 Neut # (Auto) 5.34 10^3/uL (1.8-7.7) 08/13/21 21:35 Lymph # (Auto) 1.6 10^3/uL (0.8-4.8) 08/13/21 21:35 [place] # (Auto) 0.8 10^3/uL (0.2-0.9) 08/13/21 21:35 Eos # (Auto) 0.2 10^3/uL (0.0-0.8) 08/13/21 21:35 Baso # (Auto) 0.0 10^3/uL (0.0-0.1) 08/13/21 21:35 Nucleated RBC % (auto) 0 % 08/13/21 21:35 Nucleated RBCs # 0.0 /100WBC 08/13/21 21:35 Sodium 141 mmol/L (136-145) 08/15/21 05:07 Potassium 3.7 mmol/L (3.5-5.1) 08/15/21 05:07 Chloride 102 mmol/L (98-107) 08/15/21 05:07 Carbon Dioxide 27 mmol/L (22-29) 08/15/21 05:07 Anion Gap 15.7 (5-19) 08/15/21 05:07 BUN 12 mg/dL (8-23) 08/15/21 05:07 Creatinine 0.8 mg/dL (0.5-0.9) 08/15/21 05:07 GFR Calculation Not Reportable 08/15/21 05:07 Glucose 161 mg/dL (65-115) H 08/15/21 05:07 Calculated Osmolality 295 mOsm/kg (285-295) 08/15/21 05:07 Calcium 9.6 mg/dL (8.5-10.5) 08/15/21 05:07 Magnesium 1.8 mg/dL (1.7-2.3) 08/15/21 05:07 Total Bilirubin 0.6 mg/dL (0.15-1.2) 08/13/21 21:35 AST 16 U/L (0-32) 08/13/21 21:35 ALT 18 U/L (0-33) 08/13/21 21:35 Alkaline Phosphatase 130 IU/L (35-105) H 08/13/21 21:35 Troponin T Baseline 11 ng/L (0-10) H 08/13/21 21:35 Troponin T 120 Minute 11.09 ng/L (0-10) H 08/13/21 23:10 Delta Troponin T 0.09 ABS# (0-10) 08/13/21 23:10 Troponin T Hi Sens 6Hr 10.18 ng/L (0-10) H 08/14/21 04:30 Troponin T Hi Sens 6Hr Delta -0.82 ng/L (0-12) L 08/14/21 04:30 Total Protein 7.8 g/dL (6.6-8.7) 08/13/21 21:35 Albumin 4.3 g/dL (3.5-5.2) 08/13/21 21:35 Globulin 3.5 g/dL (1.3-4.6) 08/13/21 21:35 Lipase 31 U/L (13-60) 08/14/21 04:30 TSH 4.16 uIU/mL (0.27-4.20) 08/13/21 21:35 Free T4 1.04 ng/dL (0.82-1.77) 08/13/21 21:35 Vitals Last Vital Signs Temp 98.2 F 08/15/21 07:48 Pulse 75 08/15/21 07:48 Resp 18 08/15/21 07:48 BP 186/82 08/15/21 07:48 Pulse Ox 94 08/15/21 07:48 Discharge Plan Discharge Patient Disposition: Home Condition: Stable Prescriptions: New hydralazine 25 mg Tablet 25 mg PO TID 30 Days Qty: 90 0RF metoprolol tartrate 50 mg Tablet 75 mg PO BID 30 Days Qty: 90 0RF Continued fluoxetine 40 mg capsule 40 mg PO QAM 0RF atorvastatin 40 mg tablet 40 mg PO QPM 0RF Vitamin C 1,000 mg Tablet 2,000 mg PO QAM 0RF amlodipine 10 mg tablet 10 mg PO DAILY 0RF ferrous sulfate [FeroSul] 325 mg (65 mg iron) tablet 325 mg PO BID 0RF hydrochlorothiazide 25 mg tablet 25 mg PO QAM 0RF metformin 500 mg tablet extended release 24 hr See Rx Instructions .ROUTE .COMPLEX 0RF Rx Instructions: 1000 mg po qam and 500mg po qpm Vitamin D3 25 mcg (1,000 unit) Capsule 4,000 unit PO QAM 0RF Preparation H 0.25-14-74.9 % Ointment 1 applic AL DAILY PRN (Reason: Hemorrhoids) 0RF Changed lisinopril 40 mg tablet 40 mg PO DAILY Qty: 0 0RF Held clonidine HCl 0.1 mg tablet 0.1 - 0.2 mg PO Q6H PRN (Reason: Hypertension) 0RF Hold Instructions: see pcp Discontinued carvedilol 25 mg tablet 25 mg PO BID Qty: 60 3RF Rx Instructions: Please schedule f/u appt multivitamin Tablet 2 tab PO DAILY 0RF Discharge Orders: Discharge Order (Routine); Ordered 08/16/21 Ordered By: Vanessa Morales Other Ambulatory Orders: MCT/Event Monitor 21 Days (Routine) Timeframe: 1 Day Facility: [facility] - Location: Radiology Ordered By: Vanessa Morales Referrals: Eran Henry DO [Referring] - 08/22/21 1:50 pm (Will need hospital f/up appointment. Dr. Henry is patients PCP.) Sade Garcia MD [Physician] - 10/10/21 2:45 pm Discharge Diet: Cardiac and Low Salt Discharge Activity: Resume usual activity Patient Instructions: Metoprolol (By mouth), Hydralazine (By mouth), Heart Palpitations, Supraventricular Tachycardia (ED), Opioid Safety Activity Restrictions/Additional Instructions: Please monitor your blood pressure at home and write down the readings. Take to your primary care doctor at your next appointment. If you experience palpitations again on the new medication, please return to the ER. If short of breath, dizzy, lightheaded, chest pain, please return to ER again. Discharge Attestations Time Spent in Discharge Care*: less than 30 min Quality Metrics Clinical Quality Measures [ No reported AMI, CVA or VTE this stay] Coding Level of Care Code Acute Chg FW DC note Diagnoses Sustained SVT I47.1 Palpitations R00.2
[2021-08-16 11:14] VITALS: BP 138/77; PULSE 63; RESP 18; TEMP 36.8; O2SAT 93
== END 2021-08-16 14:00 | disposition home or self-care (01) | DRG 310 ==
LOC: ER 22:53 → MEDSURG 23:21
PROVIDERS: Admitting Provider Internal Medicine; Emergency Provider Emergency Medicine; Visit Provider Internal Medicine
DX: I47.1 Supraventricular tachycardia (principal); I44.0 Atrioventricular block, first degree; I34.0 Nonrheumatic mitral (valve) insufficiency; I10 Essential (primary) hypertension; E83.42 Hypomagnesemia; E03.9 Hypothyroidism, unspecified; N28.9 Disorder of kidney and ureter, unspecified; R19.7 Diarrhea, unspecified; E66.01 Morbid (severe) obesity due to excess calories; Z68.37 Body mass index [BMI] 37.0-37.9, adult; K57.90 Diverticulosis of intestine, part unspecified, without perforation or abscess without bleeding; R74.8 Abnormal levels of other serum enzymes; R93.422 Abnormal radiologic findings on diagnostic imaging of left kidney; R93.421 Abnormal radiologic findings on diagnostic imaging of right kidney
CPT/HCPCS: 36415; 71045; 80048; 80053; 83690; 83735; 84439; 84443; 84484; 85025; 93005; 93306; 96365; 96372; 96375; 99285; J1644; J3475; J3490; J7030; J7040

== ENCOUNTER → 2021-08-16 14:15 | Outpatient (BNVA) | payer MEDICAID, SELFPAY | PROVIDERS: Visit Provider Internal Medicine Cardiovascular Disease | DX: R00.2 Palpitations (principal); I49.3 Ventricular premature depolarization | CPT/HCPCS: 93270 ==

== ENCOUNTER → 2021-10-10 14:33 | Outpatient (BNVA) | payer MEDICAID, SELFPAY | PROVIDERS: PCP Family Medicine; Visit Provider Internal Medicine Cardiovascular Disease | DX: I47.1 Supraventricular tachycardia (principal); I12.9 Hypertensive chronic kidney disease with stage 1 through stage 4 chronic kidney disease, or unspecified chronic kidney disease; E11.22 Type 2 diabetes mellitus with diabetic chronic kidney disease; N18.9 Chronic kidney disease, unspecified; Z79.84 Long term (current) use of oral hypoglycemic drugs | CPT/HCPCS: 99204 ==

== ENCOUNTER 2021-11-07 11:03 | Emergency (ER) | payer MEDICAID, SELFPAY ==
[2021-11-07 11:30] VITALS: BP 163/74; PULSE 67; RESP 18; TEMP 36.2; O2SAT 93; BMI 36.1
--- NOTE | 2021-11-07 12:30 | XRR_ITS ---
PROCEDURE INFORMATION: Exam: XR Chest Exam date and time: 11/07/2021 12:34 PM Age: 76 years old Clinical indication: Dyspnea TECHNIQUE: Imaging protocol: Radiologic exam of the chest. Views: 1 view. COMPARISON: CR XR chest 1V portable [id number] 08/13/2021 9:49 PM FINDINGS: Lungs: Right hilar to lower lobe atelectasis versus minimal infiltrate. Pleural spaces: Unremarkable. No pleural effusion. No pneumothorax. Heart/Mediastinum: Mild cardiomegaly. Bones/joints: Unremarkable. XR/XR chest 1V portable [id number] IMPRESSION: 1. Right hilar to lower lobe atelectasis versus minimal infiltrate. 2. Mild cardiomegaly.
[2021-11-07 12:46] VITALS: BP 163/65; PULSE 62; RESP 17; O2SAT 94
--- NOTE | 2021-11-07 12:48 | W.ED.GENADLT ---
HPI - General Adult General: Chief complaint: General Medical Stated complaint: Abd pain, weakness Time Seen by Provider: 11/07/21 11:46 History of Present Illness: Patient is a 76-year-old female with a history of hypertension, diabetes presenting to the emergency room for evaluation of dyspnea, fatigue, N/V and diarrhea. Patient tells me that she has been having symptoms for the last 3 days. Patient tells me that she has been having 6-7 episodes of watery diarrhea every day. Patient denies any melena or hematochezia or complaints. Patient has not been on any recent antibiotics and has not had any recent travel. Patient tells me also since 3 days ago she has had intermittent shortness of breath with some nausea and fatigue. Patient denies any chest pain or focal abdominal pain. Patient reports multiple episodes of nausea with p.o. intake. No sick contacts around patient. Patient denies any exertional chest pain, pleuritic chest pain, or other complaints at this time. Onset:3 days ago Duration:3 days Location:home Severity:moderate Associated symptoms: Reports dyspnea, malaise, nausea and vomiting; Deny chest pain, rash or palpitations Review of Systems Const: Reports: fatigue and malaise; Denies: fever(s) or chills Eyes: Denies: change in vision ENMT: Denies: mouth pain Card: Denies: chest pain or palpitations Resp: Reports: dyspnea; Denies: non-productive cough GI: Reports: nausea, vomiting and diarrhea; Denies: abdominal pain : Denies: dysuria Musc: Denies: extremity pain Skin/Breast: Denies: rash or new lesions Neuro: Denies: weakness in extremities Psych: Reports: other (Normal mood) Jose A/Lymph: Denies: easy bruising PFSH ED PFSH: Medical History Diabetes Hypertension Surgical History History of cholecystectomy Family History Mother Myocardial infarct Hypertension Diabetes Sister Hypertension Diabetes Denies family history of Stroke Social History Smoking and tobacco status: never smoked Alcohol intake: never Physical Exam Const: COMMON NORMALS: alert HENMT: COMMON NORMALS: atraumatic HEAD & SCALP: atraumatic MOUTH: moist mucous membranes not abnormal Eye: COMMON NORMALS: EOMs intact bilaterally and conjunctivae normal CONJUNCTIVA: Yes conjunctivae normal Neck/C-Spine: COMMON NORMALS: full ROM and supple Resp: COMMON NORMALS: normal respiratory effort and clear to auscultation bilaterally AUSCULTATION: clear to auscultation bilaterally Cardio: COMMON NORMALS: regular rate RATE: regular rate GI: COMMON NORMALS: Soft to palpation and non-tender PALPATION: Yes Soft to palpation OTHER: No focal TTP. NO guarding rebound, guarding, rigidity. No CVA tenderness to percussion. Neg Driver/Neg McBurney's point tenderness, no suprabupic tenderness to palpation. Extremity: COMMON NORMALS: full ROM Neuro: SENSORIUM/ORIENTATION: Yes alert MOTOR EXAM: No Abnormal motor strength present and Other motor observations present (no focal motor deficits) Psych: COMMON NORMALS: speech normal SPEECH: Yes normal speech MOOD & AFFECT: Yes euthymic mood Course Vital Signs: Vital signs: Vital Signs Temperature 97.2 F L 11/07/21 11:30 Pulse Rate 65 11/07/21 15:44 Respiratory Rate 18 11/07/21 15:44 Blood Pressure 156/54 11/07/21 15:44 Pulse Oximetry 95 11/07/21 15:44 Oxygen Delivery Me thod 11/07/21 15:38 [facility] - General Adult Medical Decision Making 76-year-old female history hypertension with diabetes presenting to the emergency room for evaluation of shortness of breath, fatigue, nausea/vomiting and diarrhea for the last 3 days. Patient has not been tested for COVID recently. Off physical exam, patient is afebrile, with normal O2 sat. Patient has no focal abdominal tenderness to palpation. No guarding or rebound tenderness. Lab work showed white count 8.2. Hemoglobin 11.1 similar to baseline. Lab within normal limit. X-ray chest shows minimal infiltrate today. At the present time, patient has focal focal abdominal pain. Patient tolerated p.o. in the emergency room. Patient's COVID is negative. No suspicion for other acute intra-abdominal pathology including SBO, biliary pathology, appendicitis, diverticulitis, or other emergent condition requiring surgery. Troponin normal. EKG is nonischemic. Not suspect ACS at this time. Rx tylenol PRN abd pain, maalox/pepcid PRN dyspepsia, and zofran PRN nausea/vomiting, doxycycline for possible infiltrate on the x-ray. Disposition: Discharge. Patient counseled regarding diagnostic impression, treatment plan. Patient given ED strict return precautions to return for continuation, worsening, or development of new symptoms. Instructed to f/u w/ PCP regarding symptoms today. Patient verbalized understanding. Lab Data : 11/07/21 12:45 11/07/21 12:45 Radiology Impressions Chest X-Ray 11/07/21 12:30 IMPRESSION: 1. Right hilar to lower lobe atelectasis versus minimal infiltrate. 2. Mild cardiomegaly. Laboratory Results WBC 8.2 10^3/uL (4.0-10.0) 11/07/21 12:45 RBC 3.85 10^6/uL (4.1-5.3) L 11/07/21 12:45 Hgb 11.1 g/dL (11.5-15.3) L 11/07/21 12:45 Hct 35.5 % (37.0-47.0) L 11/07/21 12:45 MCV 92.2 fl (81-99) 11/07/21 12:45 MCH 28.8 pg (28.0-34.0) 11/07/21 12:45 MCHC 31.3 g/dL (30.0-36.0) 11/07/21 12:45 RDW 14.4 % (12.1-15.1) 11/07/21 12:45 Plt Count 311 10^3/cmm (130-400) 11/07/21 12:45 MPV 9.9 fL (7.4-10.4) 11/07/21 12:45 Neut % (Auto) 73.7 % 11/07/21 12:45 Lymph % (Auto) 14.5 % 11/07/21 12:45 [place] % (Auto) 8.7 % 11/07/21 12:45 Eos % (Auto) 2.0 % 11/07/21 12:45 Baso % (Auto) 0.5 % 11/07/21 12:45 Neut # (Auto) 6.05 10^3/uL (1.8-7.7) 11/07/21 12:45 Lymph # (Auto) 1.2 10^3/uL (0.8-4.8) 11/07/21 12:45 [place] # (Auto) 0.7 10^3/uL (0.2-0.9) 11/07/21 12:45 Eos # (Auto) 0.2 10^3/uL (0.0-0.8) 11/07/21 12:45 Baso # (Auto) 0.0 10^3/uL (0.0-0.1) 11/07/21 12:45 Nucleated RBC % (auto) 0 % 11/07/21 12:45 Nucleated RBCs # 0.0 /100WBC 11/07/21 12:45 Sodium 137 mmol/L (136-145) 11/07/21 12:45 Potassium 4.5 mmol/L (3.5-5.1) 11/07/21 12:45 Chloride 99 mmol/L (98-107) 11/07/21 12:45 Carbon Dioxide 25 mmol/L (22-29) 11/07/21 12:45 Anion Gap 17.5 (5-19) 11/07/21 12:45 BUN 19 mg/dL (8-23) 11/07/21 12:45 Creatinine 0.8 mg/dL (0.5-0.9) 11/07/21 12:45 GFR Calculation Not Reportable 11/07/21 12:45 Glucose 162 mg/dL (65-115) H 11/07/21 12:45 Calculated Osmolality 290 mOsm/kg (285-295) 11/07/21 12:45 Lactate 2.2 mmol/L (0.5-2.2) 11/07/21 12:45 Calcium 9.4 mg/dL (8.5-10.5) 11/07/21 12:45 Total Bilirubin 1.5 mg/dL (0.15-1.2) H 11/07/21 12:45 AST 18 U/L (0-32) 11/07/21 12:45 ALT 23 U/L (0-33) 11/07/21 12:45 Alkaline Phosphatase 114 IU/L (35-105) H 11/07/21 12:45 Troponin T Baseline 10 ng/L (0-10) 11/07/21 12:45 Troponin T 120 Minute 8.98 ng/L (0-10) 11/07/21 14:29 Delta Troponin T -1.02 ABS# (0-10) L 11/07/21 14:29 Total Protein 7.1 g/dL (6.6-8.7) 11/07/21 12:45 Albumin 4.1 g/dL (3.5-5.2) 11/07/21 12:45 Globulin 3.0 g/dL (1.3-4.6) 11/07/21 12:45 Lipase 47 U/L (13-60) 11/07/21 12:45 Urine Opiates Screen Negative ng/mL (Negative) 11/07/21 12:45 Ur Barbiturates Screen Negative ng/mL (Negative) 11/07/21 12:45 Ur Phencyclidine Scrn Negative ng/mL (Negative) 11/07/21 12:45 Ur Amphetamines Screen Negative ng/mL (Negative) 11/07/21 12:45 U Benzodiazepines Scrn Positive ng/mL (Negative) H 11/07/21 12:45 Urine Cocaine Screen Negative ng/mL (Negative) 11/07/21 12:45 U Marijuana (THC) Screen Negative ng/mL (Negative) 11/07/21 12:45 Coronavirus 229E (PCR) Not detected (NOT DETECT) 11/07/21 13:05 SARS-CoV-2 (PCR) Not detected (NOT DETECT) 11/07/21 13:05 Imaging Data Other Imaging: Radiologist's impression: [address] [address] XRay Report Signed Patient: Tresa Abrams Unit #: [id number] : 1945 Age/Sex: 76 / F ADM Date: 11/07/21 Loc: ER Room/Bed: Attending Dr: Ordering Provider/Ordering MD: Naun Dorsey MD Date of Service: 11/07/21 Procedure(s): XR chest 1V portable [id number] Accession Number(s): [id number] Report Number: [id number] PROCEDURE INFORMATION: Exam: XR Chest Exam date and time: 11/07/2021 12:34 PM Age: 76 years old Clinical indication: Dyspnea TECHNIQUE: Imaging protocol: Radiologic exam of the chest. Views: 1 view. COMPARISON: CR XR chest 1V portable [id number] 08/13/2021 9:49 PM FINDINGS: Lungs: Right hilar to lower lobe atelectasis versus minimal infiltrate. Pleural spaces: Unremarkable. No pleural effusion. No pneumothorax. Heart/Mediastinum: Mild cardiomegaly. Bones/joints: Unremarkable. XR/XR chest 1V portable [id number] IMPRESSION: 1. Right hilar to lower lobe atelectasis versus minimal infiltrate. 2. Mild cardiomegaly. ? Dictated By: Michael Singleton MD Signed By: Michael Singleton MD Signed Date/Time: 11/07/21 1420 DD/ 1234 Discharge Plan Discharge Patient Disposition: Home Clinical Impression: Dyspnea, Diarrhea, Pneumonia Condition: Stable Prescriptions: New doxycycline hyclate 100 mg capsule 100 mg PO BID 10 Days Qty: 20 0RF acetaminophen 500 mg tablet 500 mg PO Q6H PRN (Reason: pain) 5 Days Qty: 20 0RF Pepcid 20 mg tablet 20 mg PO BID PRN (Reason: abdominal pain) 10 Days Qty: 20 0RF ondansetron 4 mg tablet,disintegrating 4 mg PO TID PRN (Reason: nausea and vomiting) 4 Days Qty: 12 0RF Maalox Advanced 1,000-60 mg tablet,chewable 1 tab PO TID PRN (Reason: abdominal pain) 7 Days Qty: 21 0RF No Action hydralazine 50 mg tablet 50 mg PO TID 30 Days Qty: 90 5RF metoprolol tartrate 50 mg tablet See Rx Instructions .ROUTE .COMPLEX Qty: 270 3RF Dose Instruction: TAKE 1 & 1/2 TABLETS BY MOUTH TWICE DAILY Rx Instructions: TAKE 1 & 1/2 TABLETS BY MOUTH TWICE DAILY fluoxetine 40 mg capsule 40 mg PO QAM atorvastatin 40 mg tablet 40 mg PO QPM ascorbic acid (vitamin C) [Vitamin C] 1,000 mg Tablet 2,000 mg PO QAM clonidine HCl 0.1 mg tablet 0.1 - 0.2 mg PO Q6H PRN (Reason: Hypertension) Hold Instructions: see pcp amlodipine 10 mg tablet 10 mg PO DAILY ferrous sulfate [FeroSul] 325 mg (65 mg iron) tablet 325 mg PO BID metformin 500 mg tablet extended release 24 hr See Rx Instructions .ROUTE .COMPLEX Rx Instructions: 1000 mg po qam and 500mg po qpm cholecalciferol (vitamin D3) [Vitamin D3] 25 mcg (1,000 unit) Capsule 4,000 unit PO QAM magnesium 200 mg Tablet 200 mg PO DAILY lisinopril 40 mg tablet 40 mg PO BID carvedilol 25 mg tablet 25 mg PO BID hydrochlorothiazide 25 mg tablet 25 mg PO DAILY Discharge Orders: Discharge ED (Routine); Ordered 11/07/21 Ordered By: Naun Dorsey Referrals: Eran Henry, [Primary Care Provider] - Discharge Diet: Advance as tolerated Discharge Activity: Increase activity as tolerated Patient Instructions: Dyspnea (ED) Activity Restrictions/Additional Instructions: Come back to the emergency room if your symptoms worsen, have any shortness of breath, fever/chills, dehydration, inability tolerate food or drinks, any difficulty breathing, or any new or concerning complaints. Please take your antibiotics as instructed. Watch out for signs of skin changes/redness, mouth redeness or swelling, nausea/vomiting, diarrhea, blood in the urine or any new or concering complaints. Coding Level of Care Code ED Shoe Singer for Sancho Fwd Exam Comprehensive
[2021-11-07 13:10] LABS: Amphetamines Screen Urine Negative (Negative); Barbiturates Screen Urine Negative (Negative); Benzodiazepines Screen Urine Positive (Negative); Cocaine Screen Urine Negative (Negative); Opiate Screen Urine Negative (Negative); PCP Screen Urine Negative (Negative); THC Screen Urine Negative (Negative)
[2021-11-07 13:33] LABS: Lactate (Lactic Acid level) 2.2 mmol/L (0.5-2.2)
[2021-11-07 13:36] LABS: Basophils % 0.5 %; Eosinophils # 0.2 10^3/uL (0.0-0.8); Hematocrit 35.5 % (37.0-47.0); Hemoglobin 11.1 g/dL (11.5-15.3); Lymphocytes # 1.2 10^3/uL (0.8-4.8); Lymphocytes % 14.5 %; Mean Corpuscular HGB Conc 31.3 g/dL (30.0-36.0); Mean Corpuscular Hemoglobin 28.8 pg (28.0-34.0); Mean Corpuscular Volume 92.2 fl (81-99); Mean Platelet Volume 9.9 fL (7.4-10.4); Monocytes # 0.7 10^3/uL (0.2-0.9); Monocytes % 8.7 %; Neutrophils # 6.05 10^3/uL (1.8-7.7); Neutrophils % 73.7 %; Nucleated Red Blood Cells % 0 %; Platelet Count 311 10^3/cmm (130-400); Red Blood Count 3.85 10^6/uL (4.1-5.3); Red Cell Distribution Width 14.4 % (12.1-15.1); White Blood Count 8.2 10^3/uL (4.0-10.0)
[2021-11-07 13:37] LABS: Troponin(5th) Baseline 10 ng/L (0-10)
[2021-11-07 13:52] LABS: Alanine Aminotransferase 23 U/L (0-33); Albumin Level 4.1 g/dL (3.5-5.2); Alkaline Phosphatase 114 IU/L (35-105); Anion Gap 17.5 (5-19); Aspartate Amino Transferase 18 U/L (0-32); Blood Urea Nitrogen 19 mg/dL (8-23); Calcium 9.4 mg/dL (8.5-10.5); Carbon Dioxide 25 mmol/L (22-29); Chloride 99 mmol/L (98-107); Glucose 162 mg/dL (65-115); Lipase 47 U/L (13-60); Osmolality Calculated 290 mOsm/kg (285-295); Potassium 4.5 mmol/L (3.5-5.1); Sodium 137 mmol/L (136-145); Total Bilirubin 1.5 mg/dL (0.15-1.2); Total Protein 7.1 g/dL (6.6-8.7)
--- NOTE | 2021-11-07 14:30 | ECG_ITS ---
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 Measurements Intervals [place] Rate: 68 P: 92 CO: 195 QRS: 49 QRSD: 99 T: 67 QT: 415 QTc: 442 Interpretive Statements SINUS RHYTHM WITH OCCASIONAL VENTRICULAR PREMATURE COMPLEXES Compared to ECG 08/13/2021 23:28:11 Ventricular premature complex(es) now present First degree AV block no longer present Myocardial infarct finding no longer present Electronically Signed On 11-07-2021 19:47:08 CDT by Guillermina Pressley M.D. [id number]
[2021-11-07 14:59] LABS: Troponin 5 2HR 8.98 ng/L (0-10)
[2021-11-07 15:06] LABS: Adenovirus Not Detected (NOT DETECT); Chlamydia Pneumoniae Not Detected (NOT DETECT); Coronavirus 229E,HKU1,NL63,OC4 Not Detected (NOT DETECT); Human Metapneumovirus Not Detected (NOT DETECT); Human Rhinovirus/Enterovirus Not Detected (NOT DETECT); Influenza A Not Detected (NOT DETECT); Influenza A H1 Not Detected (NOT DETECT); Influenza A H1-2009 Not Detected (NOT DETECT); Influenza A H3 Not Detected (NOT DETECT); Influenza B Not Detected (NOT DETECT); Mycoplasma Pneumoniae Not Detected (NOT DETECT); Parainfluenza Virus Type 1 Not Detected (NOT DETECT); Parainfluenza Virus Type 2 Not Detected (NOT DETECT); Parainfluenza Virus Type 3 Not Detected (NOT DETECT); Parainfluenza Virus Type 4 Not Detected (NOT DETECT); Respiratory Syncytial Virus A Not Detected (NOT DETECT); Respiratory Syncytial Virus B Not Detected (NOT DETECT); SARS-COV-2 Not Detected (NOT DETECT)
[2021-11-07 15:12] LABS: Troponin 5 2HR Delta -1.02 ABS# (0-10)
[2021-11-07 15:38] VITALS: BP 156/54; PULSE 62; RESP 18; O2SAT 95
[2021-11-07 15:44] VITALS: BP 156/54; PULSE 65; RESP 18; O2SAT 95
== END 2021-11-07 15:48 | disposition home or self-care (01) ==
PROVIDERS: Emergency Provider Emergency Medicine; PCP Family Medicine
DX: J18.9 Pneumonia, unspecified organism (principal); R19.7 Diarrhea, unspecified; Z79.84 Long term (current) use of oral hypoglycemic drugs; E11.9 Type 2 diabetes mellitus without complications; I10 Essential (primary) hypertension; Z20.822 Contact with and (suspected) exposure to COVID-19
CPT/HCPCS: 71045; 80053; 80306; 83605; 83690; 84484; 85025; 87635; 93005; 99285

== ENCOUNTER 2022-04-06 12:24 | Emergency (ER) | payer MEDICAID, SELFPAY ==
[2022-04-06] VITALS (29 sets, daily range): BP systolic 79–175; BP diastolic 43–106; PULSE 73–110; RESP 14–35; TEMP 37.1; O2SAT 88–98; BMI 38.0
--- NOTE | 2022-04-06 12:31 | CTR_ITS ---
PROCEDURE INFORMATION: Exam: CT Head Without Contrast Exam date and time: 04/06/2022 12:25 PM Age: 77 years old Clinical indication: Stroke-like symptoms; Speech disturbance; RT upper extremity weakness; Additional info: AMS - right sided weakness TECHNIQUE: Imaging protocol: Computed tomography of the head without contrast. Radiation optimization: All CT scans at this facility use at least one of these dose optimization techniques: automated exposure control; mA and/or kV adjustment per patient size (includes targeted exams where dose is matched to clinical indication); or iterative reconstruction. Other technique: STROKE PROTOCOL was implemented. COMPARISON: Head CT 11/07/2014 RADIATION DOSE METRICS: Total DLP (mGy-cm): 1176.38 FINDINGS: Brain: A similar mild distribution of bilateral frontal and parietal lobe white matter hypodensity is noted. No intracranial hemorrhage. No midline shift. A similar rounded focus of CSF density in the left caudate nucleus measures 6 mm. Cerebral ventricles: No ventriculomegaly. Paranasal sinuses: Visualized sinuses are unremarkable. No fluid levels. Mastoid air cells: Visualized mastoid air cells are well aerated. Bones/joints: Unremarkable. No acute fracture. Soft tissues: Unremarkable. Vasculature: Atherosclerotic calcifications are identified within the cavernous segments of the internal carotid arteries. CT/CT head wo con* [id number] IMPRESSION: 1. No acute findings. 2. Mild similar bilateral frontal and parietal lobe white matter hypodensity compatible with chronic small vessel ischemic changes. 3. 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 ASSESSMENT: ASPECTS ([place] Stroke Program Early CT Score) is 10.
--- NOTE | 2022-04-06 12:32 | ED_ITS ---
HPI - General Adult General: Chief complaint: Neuro Symptoms/Deficit Stated complaint: STROKE LIKE SYMPTOMS Time Seen by Provider: 04/06/22 12:30 Source: patient Mode of arrival: EMS History of Present Illness: 77-year-old female presents emergency room via EMS family found her down and poorly responsive right-sided weakness facial droop. Patient is aphasic on arrival. Initial EMS report was last known well time was around 7 PM. Family arrived later and look through her phone and found that she had made a phone call at 903 this morning. They confirmed with the other family member that she had talked to that at that time she was awake and alert and able to hold a conversation with no complaints or deficits that she had mention to the family member. Based on this with her readjusted last known well she was still within the timeframe to give tPA. See notes below Onset (ago): hour(s) Location: right Severity: severe Relieving factors: none Exacerbating factors: none Associated symptoms: Reports confusion Review of Systems General: Reports: ROS unobtainable due to medical condition Neuro: Reports: confusion [facility] ED PFSH: Medical History Diabetes Hypertension Surgical History History of cholecystectomy Family History Mother Myocardial infarct Hypertension Diabetes Sister Hypertension Diabetes Denies family history of Stroke Social History Smoking and tobacco status: never smoked Alcohol intake: never Physical Exam HENMT: COMMON NORMALS: normocephalic, atraumatic and hearing grossly normal bilaterally HEAD & SCALP: normocephalic and atraumatic Resp: COMMON NORMALS: normal respiratory effort, No retractions, No use of accessory muscles and clear to auscultation bilaterally AUSCULTATION: clear to auscultation bilaterally Cardio: COMMON NORMALS: regular rate, regular rhythm and No murmurs present (Cardio) RATE: regular rate RHYTHM: regular rhythm GI: COMMON NORMALS: Soft to palpation and No hepatosplenomegaly present AUSCULTATION: Yes normoactive bowel sounds PALPATION: Yes Soft to palpation, No Tenderness to palpation present (GI), No Guarding due to palpation present (GI) and Yes No hepatosplenomegaly present Extremity: COMMON NORMALS: normal to inspection, capillary refill normal and no calf tenderness Skin: COMMON NORMALS: no rashes or lesions noted GENERAL SKIN EXAM: no rashes or lesions noted Course Vital Signs: Vital signs: Vital Signs Temperature 98.7 F 04/06/22 12:30 Pulse Rate 83 04/06/22 15:45 Respiratory Rate 28 H 04/06/22 15:45 Blood Pressure 175/79 04/06/22 15:50 Pulse Oximetry 90 04/06/22 15:56 Oxygen Delivery Me thod 04/06/22 12:30 Oxygen Flow Rate 4 04/06/22 12:30 Fraction of Inspir ed Oxygen 100 04/06/22 14:44 MDM - General Adult Medical Decision Making Initial report when patient came in a stroke alert was her last known well was around 7 PM last night see the notes in the HPI. After discussed with the family members the usual course of treatment and that she was outside of the jason e window for treatment because of her last known well they were able to find in her phone that she had talked to a family member at around 903 or 904 this morning they confirmed that family member that she was awake alert oriented and did not seem to have any problems or deficits or complaints at that time. Based on that we were still within the timeframe. Patient is stroke score of 14 discussed with the family very at the edge of the acceptable timeframe for tPA however given the severity of her stroke is still recommend that she have the tPA. They consented. They were able to explain it to the mother and she nodded but she cannot give any verbal response. tPA was initiated. CTA of the head and neck shows a left middle cerebral artery M2 segment thrombosis. Made arrangements to transfer patient to [facility]. When patient arrived she was hypoxic requiring 15 L/min she continued to require 15 L/min her work of breathing was significant and she had respiratory rate in the mid 30s. I was concerned given description of downtime and that she had aspirated. Made the decision to elect ively intubate the patient discussed with the family and they consented. Patient intubated using Versed and succinylcholine. She was given propofol and vecuronium while we are waiting for drip to arrive. Her patient was then maintained using fentanyl and Versed drips. Chest x-ray to confirm ET tube placement also showed Upper lobe infiltrates consistent with aspiration. There is a lot of erythema and mucus around the cords suggestive of aspiration. Her initial vent pressures were very high. Endotracheal suctioning and increased peak pressures quickly resolved to this I suspect she did aspirate she has been started on clindamycin. Medical Records I reviewed the patient's medical records. Lab Data I reviewed the patient's lab results. 04/06/22 12:34 04/06/22 12:[address] 04/06/22 12:31 IMPRESSION: 1. No acute findings. 2. Mild similar bilateral frontal and parietal lobe white matter hypodensity compatible with chronic small vessel ischemic changes. 3. 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 ASSESSMENT: ASPECTS ([place] Stroke Program Early CT Score) is 10. Head/Neck CTA 04/06/22 12:50 IMPRESSION: 1. There is complete occlusion of the left middle cerebral artery M2 segment. At least partial distal reconstitution of flow is noted. 2. Mild atherosclerotic changes in the intracranial segments of the internal carotid arteries. THIS REPORT CONTAINS FINDINGS THAT MAY BE CRITICAL TO PATIENT CARE. The findings were verbally communicated via telephone conference with IMPRESSION: 1. No acute arterial findings within the neck. No high-grade arterial stenosis or occlusion. Mild atherosclerosis is noted involving the origins of the bilateral internal carotid arteries. 2. Cervical spine spine degenerative changes with severe appearing right sided C3-C4 neural foraminal stenosis. 3. Small to moderate right pleural effusion with mild hazy density in both lung suggestive of mild pulmonary vascular congestion or pneumonitis. Additionally, there is superimposed pulmonary nodules for which neoplastic involvement cannot be excluded. There is no provided history of known malignancy.For both low risk and high risk patients, consider CT Chest at 3 months, PET/CT or biopsy. (Reference: Ratna) REFERENCES: 1. Bandarhorekha H, et al. Guidelines for Management of Incidental Pulmonary Nodules Detected on CT Images: From the Fleischner Society 2017. Radiology. 2017;284(1):228-243. 2. NASCET CRITERIA. The degree of stenosis in the cervical segment of the internal carotid artery is based on NASCET criteria. Normal is no stenosis. Mild is less than 50% stenosis. Moderate is 50-69% stenosis. Severe is 70% to 99% stenosis. Total occlusion is no detectable patent lumen. THIS REPORT CONTAINS FINDINGS THAT MAY BE CRITICAL TO PATIENT CARE. The findings were verbally communicated via telephone conference with YONG Valentin at 1:49 PM PROGRAM SUPPORT ASSISTANT on 04/06/2022. The findings were acknowledged and understood. Chest X-Ray 04/06/22 14:43 IMPRESSION: 1. The endotracheal tube terminates 5 cm above the franko. 2. Probable mild pulmonary vascular congestion/mild pulmonary edema, the appearance of which may be exaggerated by hypoinflation. 3. Possible inferior medial left lung base infiltrate or atelectasis. A lateral view may be useful for further evaluation. 4. Small right pleural effusion. Laboratory Results WBC 15.8 10^3/uL (4.0-10.0) H 04/06/22 12:34 RBC 3.94 10^6/uL (4.1-5.3) L 04/06/22 12:34 Hgb 11.1 g/dL (11.5-15.3) L 04/06/22 12:34 Hct 36.3 % (37.0-47.0) L 04/06/22 12:34 MCV 92.1 fl (81-99) 04/06/22 12:34 MCH 28.2 pg (28.0-34.0) 04/06/22 12:34 MCHC 30.6 g/dL (30.0-36.0) 04/06/22 12:34 RDW 13.7 % (12.1-15.1) 04/06/22 12:34 Plt Count 457 10^3/cmm (130-400) H 04/06/22 12:34 MPV 9.4 fL (7.4-10.4) 04/06/22 12:34 Neut % (Auto) 87.2 % 04/06/22 12:34 Lymph % (Auto) 5.6 % 04/06/22 12:34 [place] % (Auto) 5.8 % 04/06/22 12:34 Eos % (Auto) 0.4 % 04/06/22 12:34 Baso % (Auto) 0.4 % 04/06/22 12:34 Neut # (Auto) 13.77 10^3/uL (1.8-7.7) H 04/06/22 12:34 Lymph # (Auto) 0.9 10^3/uL (0.8-4.8) 04/06/22 12:34 [place] # (Auto) 0.9 10^3/uL (0.2-0.9) 04/06/22 12:34 Eos # (Auto) 0.1 10^3/uL (0.0-0.8) 04/06/22 12:34 Baso # (Auto) 0.1 10^3/uL (0.0-0.1) 04/06/22 12:34 Nucleated RBC % (auto) 0 % 04/06/22 12:34 Nucleated RBCs # 0.0 /100WBC 04/06/22 12:34 PT 14.10 SECONDS (12.1-14.9) 04/06/22 12:34 INR 1.06 (0.8-1.2) 04/06/22 12:34 APTT 29.5 SECONDS (23.9-36.7) 04/06/22 12:34 Specimen Type Arterial 04/06/22 12:31 Sample Site Radial, left 04/06/22 12:31 ABG pH 7.39 (7.35-7.45) 04/06/22 12:31 ABG pCO2 37.7 mmHg (35-45) 04/06/22 12:31 ABG pO2 59.2 mmHg (80.0-100.0) L 04/06/22 12:31 ABG HCO3 22.6 mmol/L (22-26) 04/06/22 12:31 ABG O2 Saturation 90.1 04/06/22 12:31 ABG Base Excess -2.1 mmol/L (-2.0-2.0) L 04/06/22 12:31 Catrachito Test Pos 04/06/22 12:31 A-a O2 Gradient 23.2 mmHg (5-10) H 04/06/22 12:31 Hematocrit 32.8 % (37-47) L 04/06/22 12:31 Hgb O2 Saturation 88.6 % (95-100) L 04/06/22 12:31 Carboxyhemoglobin 1.4 %THgb (0.4-20.1) 04/06/22 12:31 Methemoglobin 0.3 % (0.4-1.5) L 04/06/22 12:31 Total Hemoglobin 10.7 g/dL (12-16) L 04/06/22 12:31 Sodium 142.0 mmol/L (131-143) 04/06/22 12:31 Potassium 3.3 mmol/L (3.5-5.0) L 04/06/22 12:31 Glucose 268.0 mg/dL (70-115) H 04/06/22 12:31 Ionized Calcium 1.2 mmol/L (1.1-1.4) 04/06/22 12:31 O2 Delivery Device Nc 04/06/22 12:31 O2 Liters/Min 5.0 % 04/06/22 12:31 FiO2 40.0 % 04/06/22 12:31 M1 Armor Crewman ID glc 04/06/22 12:31 Sodium 137 mmol/L (136-145) 04/06/22 12:34 Potassium 3.2 mmol/L (3.5-5.1) L 04/06/22 12:34 Chloride 97 mmol/L (98-107) L 04/06/22 12:34 Carbon Dioxide 21 mmol/L (22-29) L 04/06/22 12:34 Anion Gap 22.2 (5-19) H 04/06/22 12:34 BUN 22 mg/dL (8-23) 04/06/22 12:34 Creatinine 1.2 mg/dL (0.5-0.9) H 04/06/22 12:34 GFR Calculation Not Reportable 04/06/22 12:34 Glucose 274 mg/dL (65-115) H 04/06/22 12:34 POC Glucose 274 mg/dL (70-110) H 04/06/22 12:37 Calculated Osmolality 297 mOsm/kg (285-295) H 04/06/22 12:34 Calcium 9.9 mg/dL (8.5-10.5) 04/06/22 12:34 Magnesium 1.8 mg/dL (1.7-2.3) 04/06/22 12:34 Total Bilirubin 1.5 mg/dL (0.15-1.2) H 04/06/22 12:34 AST 66 U/L (0-32) H 04/06/22 12:34 ALT 53 U/L (0-33) H 04/06/22 12:34 Alkaline Phosphatase 216 U/L (35-105) H 04/06/22 12:34 Creatine Kinase 83 U/L (26-192) 04/06/22 12:34 Troponin T Baseline 19 ng/L (0-10) H 04/06/22 12:34 Troponin T 120 Minute 40.70 ng/L (0-10) H 04/06/22 14:11 Delta Troponin T 21.70 ABS# (0-10) H* 04/06/22 14:11 Total Protein 7.8 g/dL (6.6-8.7) 04/06/22 12:34 Albumin 4.3 g/dL (3.5-5.2) 04/06/22 12:34 Globulin 3.5 g/dL (1.3-4.6) 04/06/22 12:34 Lipase 44 U/L (13-60) 04/06/22 12:34 Serum Ketones Negative (Negative) 04/06/22 12:34 Discharge Plan Discharge Patient Disposition: Xfer Short-Term Hosp Clinical Impression: Acute cerebrovascular accident (CVA) due to embolism of left middle cerebral artery, Aspiration pneumonia, Acute respiratory failure with hypoxia Condition: Stable Referrals: Eran Henry DO [Primary Care Provider] - Coding Level of Care Code ED Product Distribution Specialist for g Fwd Exam Detailed NIH stroke score NIHSS Level Of Consciousness - 1a: 2 Level Of Consciousness Questions - 1b: Neither Correct Level Of Consciousness Commands - 1c: Both Correct Best Gaze - 2: Normal Visual Carlos - 3: No Visual Loss Facial Palsy - 4: Partial Paralysis Motor Arm Right - 5: Drift Motor Arm Left - 5: No Drift Motor Leg Right - 6: Drift Motor Leg Left - 6: No Drift Limb Ataxia - 7: Present In Two Limbs Sensory - 8: Mild To Moderate Loss Best Language - 9: Severe Aphasia Dysarthia - 10: Severe Dysarthia Extinction And Inattention - 11: 1 Score Total Score: 16
[2022-04-06 12:41] LABS: ABG PCO2 37.7 mmHg (35-45); ABG PH Result 7.39 (7.35-7.45); Alveolar-Arterial Oxygen Gradi 23.2 mmHg (5-10); Arterial Blood Gas Hematocrit 32.8 % (37-47); Base Excess ABG -2.1 mmol/L (-2.0-2.0); Blood Gas Allen Test Pos; Blood Gas Operator Identificat glc; Blood Gas Sample Site Radial, left; Blood Gas Sample Type Arterial; Carboxyhemoglobin 1.4 %THgb (0.4-20.1); HCO3 ABG 22.6 mmol/L (22-26); HGB O2 Sat 88.6 % (95-100); Ionized Calcium Level - ABG 1.2 mmol/L (1.1-1.4); Methemoglobin 0.3 % (0.4-1.5); Oxygen Device NC; Oxygen Saturation ABG 90.1; PO2 ABG 59.2 mmHg (80.0-100.0); Potassium Level - ABG 3.3 mmol/L (3.5-5.0); Total Hemoglobin 10.7 g/dL (12-16)
[2022-04-06 12:41] LABS: Glucose Point of Care 274 mg/dL (70-110)
--- NOTE | 2022-04-06 12:43 | ECG_ITS ---
[facility] Test Date: 2022-04-06 Pat Name: Tresa Abrams Department: Room: Gender: Female Donor Technician: : 1945 Requested By: Yong Celeste Order Number: [id number] Mitchell MD: Sade Garcia M.D. Measurements Intervals [place] Rate: 97 P: 0 NE: 0 QRS: 51 QRSD: 85 T: 63 QT: 377 QTc: 479 Interpretive Statements ATRIAL FIBRILLATION LOW QRS VOLTAGE IN EXTREMITY LEADS [QRS DEFLECTION < 0.5 mV IN LIMB LEADS] ANTEROSEPTAL MYOCARDIAL INFARCTION , PROBABLY OLD [40+ ms Q WAVE IN V1-V4] Compared to ECG 11/07/2021 13:10:19 Low QRS voltage now present Myocardial infarct finding now present Sinus rhythm no longer present Ventricular premature complex(es) no longer present Electronically Signed On 04-06-2022 15:22:43 SOFTWARE QUALITY TESTER by Sade Garcia M.D. [id number]
--- NOTE | 2022-04-06 12:50 | CTR_ITS ---
PROCEDURE INFORMATION: Exam: CTA Head With Contrast, Arteriography Exam date and time: 04/06/2022 1:00 PM Age: 77 years old Clinical indication: Weakness; Patient HX: RT side; Additional info: Acute CVA TECHNIQUE: Imaging protocol: Computed tomographic angiography of the head with contrast. Exam focused on the arteries. 3D rendering (Not supervised by radiologist): MIP and/or 3D reconstructed images were created by the technologist. Radiation optimization: All CT scans at this facility use at least one of these dose optimization techniques: automated exposure control; mA and/or kV adjustment per patient size (includes targeted exams where dose is matched to clinical indication); or iterative reconstruction. Contrast material: OMNI 350; Contrast volume: 100 ml; Contrast route: INTRAVENOUS (IV); COMPARISON: CT head wo con* [id number] 04/06/2022 12:25 PM RADIATION DOSE METRICS: Total DLP (mGy-cm): 553.91 FINDINGS: ANTERIOR CIRCULATION: Right internal carotid artery: Mild atherosclerotic plaque in the cavernous and supraclinoid segments of the right internal carotid artery are noted with less than 50% stenosis. Right middle cerebral artery: No occlusion or significant stenosis. No aneurysm. Right anterior cerebral artery: No occlusion or significant stenosis. No aneurysm. Left internal carotid artery: Atherosclerotic plaque in the left internal carotid artery cavernous and supraclinoid segments is noted with less than 50% stenosis. Left middle cerebral artery: There is abrupt occlusion of the distal left middle cerebral artery and involving the M2 segment. At least partial distal reconstitution of flow is noted. Left anterior cerebral artery: No occlusion or significant stenosis. No aneurysm. POSTERIOR CIRCULATION: Right vertebral artery: No occlusion or significant stenosis. No aneurysm. Left vertebral artery: No occlusion or significant stenosis. No aneurysm. Basilar artery: No occlusion or significant stenosis. No aneurysm. Right posterior cerebral artery: No occlusion or significant stenosis. No aneurysm. Left posterior cerebral artery: No occlusion or significant stenosis. No aneurysm. Brain: No definite mass, mass effect, or midline shift. Cerebral ventricles: No ventriculomegaly. Bones/joints: Unremarkable. No acute fracture. Soft tissues: Unremarkable. CHARLEE LEY at 1:49 PM FOOD PREPARATION WORKER on 04/06/2022. The findings were acknowledged and understood. PROCEDURE INFORMATION: Exam: CTA Neck With Contrast Exam date and time: 04/06/2022 1:00 PM Age: 77 years old Clinical indication: Weakness; Patient HX: RT side; Additional info: Acute CVA TECHNIQUE: Imaging protocol: Computed tomographic angiography of the neck with contrast. 3D rendering (Not supervised by radiologist): MIP and/or 3D reconstructed images were created by the technologist. Radiation optimization: All CT scans at this facility use at least one of these dose optimization techniques: automated exposure control; mA and/or kV adjustment per patient size (includes targeted exams where dose is matched to clinical indication); or iterative reconstruction. Contrast material: OMNI 350; Contrast volume: 100 ml; Contrast route: INTRAVENOUS (IV); COMPARISON: CT head wo con* [id number] 04/06/2022 12:25 PM RADIATION DOSE METRICS: Total DLP (mGy-cm): 553.91 FINDINGS: Right common carotid artery: No stenosis. No dissection or occlusion. Right internal carotid artery: Atherosclerotic plaque in the right carotid arterial bulb is noted over a distance of 6 mm with less than 50% stenosis. No dissection or occlusion. Right external carotid artery: Mild atherosclerotic plaque in the origin of the right external carotid artery is noted with approximately 50% stenosis over a distance of 2-3 mm. Left common carotid artery: No stenosis. No dissection or occlusion. Left internal carotid artery: Atherosclerotic plaque in the left carotid arterial bulb over a distance of approximately 1 cm is noted resulting in less than 50% stenosis. No dissection or occlusion. Left external carotid artery: Atherosclerotic plaque in the origin of the left external carotid artery is noted with approximately 50% stenosis. Right vertebral artery: No stenosis. No dissection or occlusion. Left vertebral artery: No stenosis. No dissection or occlusion. Right subclavian artery: Mild atherosclerotic changes are identified in the proximal right subclavian artery without significant stenosis. Aorta: Atherosclerotic changes in the thoracic aorta are noted without significant stenosis. Lymph nodes: Calcified left hilar lymph nodes are present. Soft tissues: Normal. No significant soft tissue swelling. Bones/joints: Degenerative spondylosis in the cervical spine is noted. Extensive appearing right C3-C4 neural foraminal stenosis. Lungs: Ill-defined areas of hazy density throughout the lungs are noted. There are bilateral noncalcified pulmonary nodules for example in the left upper lobe where there is a dominant nodule measuring 9 mm in diameter on series 5, image 12. Assessment of the lungs is limited by motion artifact. Pleural spaces: Small to moderate right pleural effusion. CT/CT angio headneck* [id number] IMPRESSION: 1. There is complete occlusion of the left middle cerebral artery M2 segment. At least partial distal reconstitution of flow is noted. 2. Mild atherosclerotic changes in the intracranial segments of the internal carotid arteries. THIS REPORT CONTAINS FINDINGS THAT MAY BE CRITICAL TO PATIENT CARE. The findings were verbally communicated via telephone conference with IMPRESSION: 1. No acute arterial findings within the neck. No high-grade arterial stenosis or occlusion. Mild atherosclerosis is noted involving the origins of the bilateral internal carotid arteries. 2. Cervical spine spine degenerative changes with severe appearing right sided C3-C4 neural foraminal stenosis. 3. Small to moderate right pleural effusion with mild hazy density in both lung suggestive of mild pulmonary vascular congestion or pneumonitis. Additionally, there is superimposed pulmonary nodules for which neoplastic involvement cannot be excluded. There is no provided history of known malignancy.For both low risk and high risk patients, consider CT Chest at 3 months, PET/CT or biopsy. (Reference: Ratna) REFERENCES: 1. Ratna Hernandez, et al. Guidelines for Management of Incidental Pulmonary Nodules Detected on CT Images: From the Fleischner Society 2017. Radiology. 2017;284(1):228-243. 2. NASCET CRITERIA. The degree of stenosis in the cervical segment of the internal carotid artery is based on NASCET criteria. Normal is no stenosis. Mild is less than 50% stenosis. Moderate is 50-69% stenosis. Severe is 70% to 99% stenosis. Total occlusion is no detectable patent lumen. THIS REPORT CONTAINS FINDINGS THAT MAY BE CRITICAL TO PATIENT CARE. The findings were verbally communicated via telephone conference with CHARLEE Valentin at 1:49 PM FOOD PREPARATION WORKER on 04/06/2022. The findings were acknowledged and understood.
[2022-04-06] MEDS: iohexol 350 mg/mL 500 mL Btl (per mL) IV (13:04)
[2022-04-06 13:06] LABS: Basophils # 0.1 10^3/uL (0.0-0.1); Basophils % 0.4 %; Eosinophils # 0.1 10^3/uL (0.0-0.8); Eosinophils % 0.4 %; Hematocrit 36.3 % (37.0-47.0); Hemoglobin 11.1 g/dL (11.5-15.3); Lymphocytes # 0.9 10^3/uL (0.8-4.8); Lymphocytes % 5.6 %; Mean Corpuscular HGB Conc 30.6 g/dL (30.0-36.0); Mean Corpuscular Hemoglobin 28.2 pg (28.0-34.0); Mean Corpuscular Volume 92.1 fl (81-99); Mean Platelet Volume 9.4 fL (7.4-10.4); Monocytes # 0.9 10^3/uL (0.2-0.9); Monocytes % 5.8 %; Neutrophils # 13.77 10^3/uL (1.8-7.7); Neutrophils % 87.2 %; Nucleated Red Blood Cells % 0 %; Platelet Count 457 10^3/cmm (130-400); Red Blood Count 3.94 10^6/uL (4.1-5.3); Red Cell Distribution Width 13.7 % (12.1-15.1); White Blood Count 15.8 10^3/uL (4.0-10.0)
[2022-04-06 13:23] LABS: Ketone (Acetest) Serum Negative (Negative)
--- NOTE | 2022-04-06 13:26 | PC.NURSE ---
family states pt alled her sister at 0904 this morning the phone call lasted 3 minutes per family
[2022-04-06 13:31] LABS: Alanine Aminotransferase 53 U/L (0-33); Albumin Level 4.3 g/dL (3.5-5.2); Alkaline Phosphatase 216 U/L (35-105); Anion Gap 22.2 (5-19); Aspartate Amino Transferase 66 U/L (0-32); Blood Urea Nitrogen 22 mg/dL (8-23); Calcium 9.9 mg/dL (8.5-10.5); Carbon Dioxide 21 mmol/L (22-29); Chloride 97 mmol/L (98-107); Creatine Phosphokinase 83 U/L (26-192); Globulin 3.5 g/dL (1.3-4.6); Glucose 274 mg/dL (65-115); Lipase 44 U/L (13-60); Magnesium 1.8 mg/dL (1.7-2.3); Osmolality Calculated 297 mOsm/kg (285-295); Potassium 3.2 mmol/L (3.5-5.1); Sodium 137 mmol/L (136-145); Total Bilirubin 1.5 mg/dL (0.15-1.2); Total Protein 7.8 g/dL (6.6-8.7)
[2022-04-06 13:32] LABS: Troponin(5th) Baseline 19 ng/L (0-10)
[2022-04-06 13:39] LABS: INR 1.06 (0.8-1.2)
[2022-04-06 13:40] LABS: Partial Thromboplastin Time 29.5 SECONDS (23.9-36.7)
--- NOTE | 2022-04-06 13:42 | PC.NURSE ---
ATP BOLUS DOSE OF 9MG ADMINISTERED WITH VERIFICATION OF TAURUS SHOEMAKER. 10MG OF ATP WASTED WTIH VERIFICATION OF TAURUS SHOEMAKER
--- NOTE | 2022-04-06 14:24 | PC.NURSE ---
INTUBATION BY DR. LEY STARTED 1424 11MG VERSED IVP BY TAURUS RN AT 1425 100 MG SUCCINYLCHOLINE AT 1425 BY TAURUS RN TUBE INSERTION AT 1426 WITH POSITIVE COLOR CHANGE EQUAL CHEST RISE AND FALL NOTED. BREATH SOUNDS AUSCULTATED BILATERALLY SIZE 8 TUBE AT 21 TO GUM
[2022-04-06] MEDS: succinylcholine 20 mg/mL SDV 10mL 100 MG IV (14:25)
[2022-04-06] MEDS: midazolam 1 mg/mL INJ 2 mL 11 MG IVP (14:25)
[2022-04-06] MEDS: vecuronium 10 mg SDV IVP (14:34)
[2022-04-06] MEDS: propofol 10 mg/mL SDV 20 mL 100 MG IVP (14:34)
--- NOTE | 2022-04-06 14:35 | PC.NURSE ---
AT 1434 PT BEGAN TO AROUSE. DR. LEY GAVE VERBAL ORDER FOR 100MG PROPOFOL IVP. 100MG PROPOFOL ADMINISTERED BY DR. CHARLEE LEY GAVE VERBAL ORDER FOR 10MG VECERONIUM IVP. VECERONIUM ADMINISTERED BY ABDELRAHMAN MCCRAY RN
--- NOTE | 2022-04-06 14:43 | XRR_ITS ---
PROCEDURE INFORMATION: Exam: XR Chest Exam date and time: 04/06/2022 2:33 PM Age: 77 years old Clinical indication: Device placement; Ett placement (vent status); Additional info: Post intubation TECHNIQUE: Imaging protocol: Radiologic exam of the chest. Views: 1 view. COMPARISON: CR XR chest 1V portable [id number] 11/07/2021 12:34 PM FINDINGS: Tubes, catheters and devices: An endotracheal tube terminates 5 cm above the franko. Lungs: Diffuse mild interstitial prominence is noted. Diffuse mild indistinctness of the pulmonary vasculature is noted. Mild ill-defined patchy density in the inferior medial left lung base appears to be present. The lungs are hypoinflated. Pleural spaces: A small right pleural effusion is noted. Heart/Mediastinum: Unremarkable. No cardiomegaly. Vasculature: Atherosclerotic calcifications within the aorta are noted. Bones/joints: Degenerative spondylosis in the visualized spine is noted. XR/XR chest 1V portable [id number] IMPRESSION: 1. The endotracheal tube terminates 5 cm above the franko. 2. Probable mild pulmonary vascular congestion/mild pulmonary edema, the appearance of which may be exaggerated by hypoinflation. 3. Possible inferior medial left lung base infiltrate or atelectasis. A lateral view may be useful for further evaluation. 4. Small right pleural effusion.
[2022-04-06] MEDS: clindamycin 600 MG/50 ML PREMIX 100 MG IV (15:01)
--- NOTE | 2022-04-06 15:12 | ECG_ITS ---
[facility] Test Date: 2022-04-06 Pat Name: Tresa Abrams Department: Room: Gender: Female Fire Range Technician: : 1945 Requested By: Yong Celeste Order Number: [id number] Mitchell MD: Sade Garcia M.D. Measurements Intervals [place] Rate: 80 P: 0 TN: 0 QRS: 30 QRSD: 109 T: 62 QT: 458 QTc: 530 Interpretive Statements ATRIAL FIBRILLATION LOW QRS VOLTAGE [QRS DEFLECTION < 0.5/1.0 mV IN LIMB/CHEST LEADS] POSSIBLE ANTERIOR MYOCARDIAL INFARCTION , PROBABLY OLD [30 ms Q WAVE IN V3/V4, OR R < 0.2 mV IN V4] Compared to ECG 04/06/2022 12:43:12 No significant changes Electronically Signed On 04-07-2022 20:22:39 DIRECTOR MUSEUM OR ZOO by Sade Garcia M.D. [id number]
--- NOTE | 2022-04-06 15:25 | PC.PHAR ---
pt unable to verify due to intubation - verified by external med history
--- NOTE | 2022-04-06 15:28 | PC.NURSE ---
DR. LEY GAVE VERBAL ORDER TO APPLY 2 POINT SOFT RESTRAINT
--- NOTE | 2022-04-06 16:14 | PC.RESP ---
pt taken off ventilator @ [id number]
== END 2022-04-06 16:11 | disposition short-term general hospital (02) ==
PROVIDERS: Emergency Provider Family Medicine; PCP Family Medicine
DX: I63.412 Cerebral infarction due to embolism of left middle cerebral artery (principal); J69.0 Pneumonitis due to inhalation of food and vomit; J96.01 Acute respiratory failure with hypoxia; E11.9 Type 2 diabetes mellitus without complications; I10 Essential (primary) hypertension
CPT/HCPCS: 36415; 36416; 36600; 70450; 70496; 70498; 71045; 80051; 80053; 82009; 82330; 82550; 82805; 82962; 83690; 83735; 84484; 85025; 85610; 85730; 87070; 87205; 93005; 94002; 94799; 96365; 96367; 96375; 99291; 99292; J0330; J2250; J2704; J2997; J3010; J3490; J7050; Q9967

== ENCOUNTER 2022-05-06 15:13 | Inpatient (IN) | payer MEDICAID, SELFPAY ==
[2022-05-06] VITALS (11 sets, daily range): BP systolic 135–176; BP diastolic 65–93; PULSE 87–108; RESP 16–29; TEMP 36.7–36.9; O2SAT 76–100; BMI 34.2
--- NOTE | 2022-05-06 15:31 | XRR_ITS ---
PROCEDURE INFORMATION: Exam: XR Chest Exam date and time: 05/06/2022 3:43 PM Age: 77 years old Clinical indication: Shortness of breath; Additional info: Hypoxia, shortness of breath TECHNIQUE: Imaging protocol: Radiologic exam of the chest. Views: 1 view. COMPARISON: CR XR chest 1V portable [id number] 04/06/2022 2:33 PM FINDINGS: Lungs: Minor left basilar scarring. No consolidation. Pleural spaces: No pleural effusion. No pneumothorax. Heart/Mediastinum: No cardiomegaly. Bones/joints: Unremarkable. XR/XR chest 1V portable [id number] IMPRESSION: No acute findings.
--- NOTE | 2022-05-06 15:37 | ED_ITS ---
HPI - SOB/Dyspnea General: Chief Complaint: Shortness of Breath/Dyspnea Stated Complaint: Low O2 Time Seen by Provider: 05/06/22 15:25 Source: patient and family (Daughter) Mode of arrival: ambulatory History of Present Illness: HPI Narrative: This 77-year-old female with a past history of hypertension and SVT, presents to the ER with shortness of breath and cough that started 3 days ago. She was seen earlier today by her primary care provider where she was discovered to be hypoxic with oxygen saturation in the 70s and 80s. Patient was advised to come to the ER for evaluation. She complains of feeling nauseated but denies chest pain or vomiting. She had a breathing treatment prior to ER arrival. Here in the ER, oxygen saturation is in the 80s on room air. Associated symptoms: Deny chest pain or lightheadedness Review of Systems Const: Denies: chills, body aches or change in appetite Eyes: Denies: change in vision or eye discharge ENMT: Denies: throat pain, dental pain or nasal discharge Card: Denies: chest pain or lightheadedness Resp: Reports: dyspnea and non-productive cough : Denies: dysuria Musc: Denies: neck pain or back pain Neuro: Denies: headache(s) or weakness in extremities Psych: Denies: depression Jose A/Lymph: Denies: easy bruising All/Imm: Denies: urticaria, tongue swelling or facial swelling PFSH ED PFSH: Medical History (Updated 05/06/22 @ 18:03 by Braulio Ramirez MD) Bronchitis Diabetes Hypertension Hypoxia URI (upper respiratory infection) Surgical History (Updated 05/06/22 @ 10:07 by Sanju Foy MD) History of appendectomy History of cholecystectomy Family History Mother Myocardial infarct Hypertension Diabetes Sister Hypertension Diabetes Denies family history of Stroke Social History Smoking and tobacco status: never smoked Alcohol intake: never Physical Exam Const: COMMON NORMALS: no acute distress, patient oriented x3, no limitations and alert HENMT: COMMON NORMALS: normocephalic HEAD & SCALP: normocephalic Eye: COMMON NORMALS: EOMs intact bilaterally Neck/C-Spine: COMMON NORMALS: full ROM and supple Chest: COMMONS NORMALS: normal inspection of the chest Resp: COMMON NORMALS: No retractions AUSCULTATION: crackles (Bibasilar) and wheezes (Terminal expiratory wheeze) expiratory wheezes (Bibasilar terminal expiratory wheeze) Cardio: COMMON NORMALS: regular rate, regular rhythm and No murmurs present (Cardio) RATE: regular rate RHYTHM: regular rhythm GI: COMMON NORMALS: Normal to inspection, nondistended, normoactive bowel sounds present and non-tender : COMMON NORMALS: Yes no CVA tenderness BLADDER/KIDNEY EXAM: Yes no CVA tenderness Back/Pelvis: COMMON NORMALS: no CVA tenderness and no thoracic nor lumbar tenderness Extremity: GENERAL: Yes normal exam except as noted OTHER: Mild bilateral pitting pedal edema Neuro: COMMON NORMALS: patient oriented x3 and no focal motor deficits SENSORIUM/ORIENTATION: Yes alert Psych: COMMON NORMALS: mental status grossly normal and cooperative Course Vital Signs: Vital signs: Vital Signs Temperature 98.5 F 05/06/22 15:17 Pulse Rate 99 05/06/22 16:08 Respiratory Rate 16 05/06/22 16:02 Blood Pressure 174/93 05/06/22 15:17 Pulse Oximetry 89 L 05/06/22 16:02 Oxygen Delivery Me thod 05/06/22 16:02 Oxygen Flow Rate 6 05/06/22 16:02 MDM - SOB/Dyspnea Medical Decision Making Medical decision making: Patient presents with shortness of breath started about 3 days ago. It is associated with hypoxia. Chest x-ray is unremarkable but CTA chest revealed bilateral pulmonary embolism with signs of right heart strain. Case discussed with Dr. Varner who accepted patient for admission. Lab Data 05/06/22 15:38 05/06/22 15:38 Labs/Radiology: Radiology Impressions Chest X-Ray 05/06/22 15:31 IMPRESSION: No acute findings. Chest CTA 05/06/22 16:13 IMPRESSION: 1. Extensive multifocal pulmonary embolism within the distal left main pulmonary artery and lobar/segmental branches some of which are occlusive and nearly occlusive bilaterally. Findings consistent with right heart strain. 2. There is a nonspecific small cavitary lesion in the left lower lobe measuring 1.5 cm in size. 3. Small peripheral wedge-shaped opacity in the right upper lobe which may reflect a small pulmonary infarct. COMMENTS: Consistent with the [place] [employer]'s Incidental Findings Committee white paper (J Am Melvin Radiol 2015): In patients aged 35 years and older with an incidental thyroid nodule equal to or greater than 1.[address], MRI or extrathyroidal US, further evaluation with dedicated thyroid US is recommended for patients with normal life expectancy and without comorbidities. For smaller nodules without suspicious features, no further evaluation or follow up is recommended. ADDENDUM: 05/06/22 180 THIS REPORT CONTAINS FINDINGS THAT MAY BE CRITICAL TO PATIENT CARE. The findings were verbally communicated via telephone conference with BRAULIO RAMIREZ at 6:01 PM FENCE POST CUTTER on 05/06/2022. The findings were acknowledged and understood. Laboratory Results WBC 9.1 10^3/uL (4.0-10.0) 05/06/22 15:38 RBC 4.15 10^6/uL (4.1-5.3) 05/06/22 15:38 Hgb 11.3 g/dL (11.5-15.3) L 05/06/22 15:38 Hct 37.3 % (37.0-47.0) 05/06/22 15:38 MCV 89.9 fl (81-99) 05/06/22 15:38 MCH 27.2 pg (28.0-34.0) L 05/06/22 15:38 MCHC 30.3 g/dL (30.0-36.0) 05/06/22 15:38 RDW 14.6 % (12.1-15.1) 05/06/22 15:38 Plt Count 240 10^3/cmm (130-400) 05/06/22 15:38 MPV 9.9 fL (7.4-10.4) 05/06/22 15:38 Neut % (Auto) 80.1 % 05/06/22 15:38 Lymph % (Auto) 8.7 % 05/06/22 15:38 Rhea % (Auto) 8.2 % 05/06/22 15:38 Eos % (Auto) 2.4 % 05/06/22 15:38 Baso % (Auto) 0.3 % 05/06/22 15:38 Neut # (Auto) 7.29 10^3/uL (1.8-7.7) 05/06/22 15:38 Lymph # (Auto) 0.8 10^3/uL (0.8-4.8) 05/06/22 15:38 Rhea # (Auto) 0.8 10^3/uL (0.2-0.9) 05/06/22 15:38 Eos # (Auto) 0.2 10^3/uL (0.0-0.8) 05/06/22 15:38 Baso # (Auto) 0.0 10^3/uL (0.0-0.1) 05/06/22 15:38 Nucleated RBC % (auto) 0 % 05/06/22 15:38 Nucleated RBCs # 0.0 /100WBC 05/06/22 15:38 Specimen Type Arterial 05/06/22 15:45 Sample Site Radial, left 05/06/22 15:45 ABG pH 7.48 (7.35-7.45) H 05/06/22 15:45 ABG pCO2 36.5 mmHg (35-45) 05/06/22 15:45 ABG pO2 53.3 mmHg (80.0-100.0) L 05/06/22 15:45 ABG HCO3 27.4 mmol/L (22-26) H 05/06/22 15:45 ABG Base Excess 3.8 mmol/L (-2.0-2.0) H 05/06/22 15:45 Catrachito Test Pos 05/06/22 15:45 Hematocrit 34.9 % (37-47) L 05/06/22 15:45 O2 Delivery Device Nc 05/06/22 15:45 O2 Liters/Min 6.0 % 05/06/22 15:45 Used Car Sales Manager ID [email or web address] 05/06/22 15:45 Sodium 136 mmol/L (136-145) 05/06/22 15:38 Potassium 3.8 mmol/L (3.5-5.1) 05/06/22 15:38 Chloride 97 mmol/L (98-107) L 05/06/22 15:38 Carbon Dioxide 26 mmol/L (22-29) 05/06/22 15:38 Anion Gap 16.8 (5-19) 05/06/22 15:38 BUN 15 mg/dL (8-23) 05/06/22 15:38 Creatinine 0.9 mg/dL (0.5-0.9) 05/06/22 15:38 GFR Calculation Not Reportable 05/06/22 15:38 Glucose 154 mg/dL (65-115) H 05/06/22 15:38 Calculated Osmolality 286 mOsm/kg (285-295) 05/06/22 15:38 Calcium 9.8 mg/dL (8.5-10.5) 05/06/22 15:38 Total Bilirubin 2.2 mg/dL (0.15-1.2) H 05/06/22 15:38 AST 23 U/L (0-32) 05/06/22 15:38 ALT 17 U/L (0-33) 05/06/22 15:38 Alkaline Phosphatase 164 U/L (35-105) H 05/06/22 15:38 NT-Pro-B Natriuret Pep 1517 pg/mL (0-450) H 05/06/22 16:37 Total Protein 7.4 g/dL (6.6-8.7) 05/06/22 15:38 Albumin 4.0 g/dL (3.5-5.2) 05/06/22 15:38 Globulin 3.4 g/dL (1.3-4.6) 05/06/22 15:38 Influenza Type A Ag negative (Negative) 05/06/22 15:57 Influenza Type B Ag negative (Negative) 05/06/22 15:57 SARS-CoV-2 Ag (Rapid) negative (Negative) 05/06/22 15:57 Discharge Plan Discharge Patient Disposition: Admitted As Inpatient Clinical Impression: Bilateral pulmonary embolism Condition: Stable Coding Level of Care Code ED Human Resource Consultant for Sancho Fwd Exam Comprehensive
[2022-05-06 15:44] LABS: Basophils % 0.3 %; Eosinophils # 0.2 10^3/uL (0.0-0.8); Eosinophils % 2.4 %; Hematocrit 37.3 % (37.0-47.0); Hemoglobin 11.3 g/dL (11.5-15.3); Lymphocytes # 0.8 10^3/uL (0.8-4.8); Lymphocytes % 8.7 %; Mean Corpuscular HGB Conc 30.3 g/dL (30.0-36.0); Mean Corpuscular Hemoglobin 27.2 pg (28.0-34.0); Mean Corpuscular Volume 89.9 fl (81-99); Mean Platelet Volume 9.9 fL (7.4-10.4); Monocytes # 0.8 10^3/uL (0.2-0.9); Monocytes % 8.2 %; Neutrophils # 7.29 10^3/uL (1.8-7.7); Neutrophils % 80.1 %; Nucleated Red Blood Cells % 0 %; Platelet Count 240 10^3/cmm (130-400); Red Blood Count 4.15 10^6/uL (4.1-5.3); Red Cell Distribution Width 14.6 % (12.1-15.1); White Blood Count 9.1 10^3/uL (4.0-10.0)
[2022-05-06] MEDS: FUROsemide 10 mg/mL SDV 4mL 40 MG IVP (15:53)
[2022-05-06 15:57] LABS: Blood Gas Allen Test Pos; Blood Gas Sample Site Radial, left; Blood Gas Sample Type Arterial; Oxygen Device NC
[2022-05-06 15:58] LABS: ABG PCO2 36.5 mmHg (35-45); ABG PH Result 7.48 (7.35-7.45); Arterial Blood Gas Hematocrit 34.9 % (37-47); Base Excess ABG 3.8 mmol/L (-2.0-2.0); HCO3 ABG 27.4 mmol/L (22-26); PO2 ABG 53.3 mmHg (80.0-100.0)
[2022-05-06] MEDS: albuterol 2.5 mg/3 mL Neb INHALATION (16:04)
[2022-05-06] MEDS: ipratropium 0.5 mg/2.5 mL Neb INHALATION (16:04)
[2022-05-06 16:06] LABS: Alanine Aminotransferase 17 U/L (0-33); Alkaline Phosphatase 164 U/L (35-105); Blood Urea Nitrogen 15 mg/dL (8-23); Calcium 9.8 mg/dL (8.5-10.5); Carbon Dioxide 26 mmol/L (22-29); Chloride 97 mmol/L (98-107); Globulin 3.4 g/dL (1.3-4.6); Glucose 154 mg/dL (65-115); Osmolality Calculated 286 mOsm/kg (285-295); Sodium 136 mmol/L (136-145); Total Bilirubin 2.2 mg/dL (0.15-1.2); Total Protein 7.4 g/dL (6.6-8.7)
[2022-05-06 16:08] LABS: Anion Gap 16.8 (5-19); Aspartate Amino Transferase 23 U/L (0-32); Potassium 3.8 mmol/L (3.5-5.1)
--- NOTE | 2022-05-06 16:13 | CTR_ITS ---
PROCEDURE INFORMATION: Exam: CTA Chest Without And With Contrast Exam date and time: 05/06/2022 5:12 PM Age: 77 years old Clinical indication: Shortness of breath; Prior surgery; Surgery date: 6+ months; Surgery type: Gb; Additional info: SOB, hypoxia TECHNIQUE: Imaging protocol: Computed tomographic angiography of the chest without and with contrast. 3D rendering (Not supervised by radiologist): MIP and/or 3D reconstructed images were created by the technologist. Radiation optimization: All CT scans at this facility use at least one of these dose optimization techniques: automated exposure control; mA and/or kV adjustment per patient size (includes targeted exams where dose is matched to clinical indication); or iterative reconstruction. Contrast material: OMNIPAQUE 350; Contrast volume: 95 ml; Contrast route: INTRAVENOUS (IV); Other protocol: This patient has received 2 known CTs and 0 known cardiac nuclear medicine studies in the 12 months prior to the current study. COMPARISON: CR XR chest 1V portable [id number] 05/06/2022 3:43 PM RADIATION DOSE METRICS: Total DLP (mGy-cm): 482.05 FINDINGS: Pulmonary arteries: Multifocal pulmonary emboli which includes nonocclusive pulmonary emboli within the left main pulmonary artery extending into the lobar branches, nearly occlusive within the upper lobar branch. These extend into distal segmental branches in the left lower lobe. Additional right-sided pulmonary emboli occlusive within the lobar branch of the right middle lobe as well as nearly occlusive upper and lower lobar branches as well as segmental branches at the right lung base. Curvilinear atelectasis or scarring in the medial left lung base and lingula. Aorta: No aortic aneurysm. No aortic dissection. Thyroid: Partially rim calcified thyroid nodules noted measuring up to 1.5 cm in the left thyroid lobe. Lungs: Small lucent/cavitary lesion measuring 1.5 cm with a thin wall located in the left lower lobe as best seen on series 6, image 251. Heterogeneous mosaic attenuation pattern throughout the lungs likely secondary to the clot burden and varying levels of pulmonary artery perfusion. Small wedge-shaped opacity along the periphery of the right upper lobe which may reflect a small pulmonary infarct. Pleural spaces: No pneumothorax. No pleural effusion. Heart: RV/LV ratio equals 1. No cardiomegaly. Trace pericardial effusion. Lymph nodes: No enlarged lymph nodes. Bones/joints: No acute fracture. Soft tissues: Unremarkable. CT/CT angio chest PE protcl [id number] IMPRESSION: 1. Extensive multifocal pulmonary embolism within the distal left main pulmonary artery and lobar/segmental branches some of which are occlusive and nearly occlusive bilaterally. Findings consistent with right heart strain. 2. There is a nonspecific small cavitary lesion in the left lower lobe measuring 1.5 cm in size. 3. Small peripheral wedge-shaped opacity in the right upper lobe which may reflect a small pulmonary infarct. COMMENTS: Consistent with the [place] [employer]'s Incidental Findings Committee white paper (J Am Melvin Radiol 2015): In patients aged 35 years and older with an incidental thyroid nodule equal to or greater than 1.[address], MRI or extrathyroidal US, further evaluation with dedicated thyroid US is recommended for patients with normal life expectancy and without comorbidities. For smaller nodules without suspicious features, no further evaluation or follow up is recommended.
[2022-05-06 17:27] LABS: NT Pro B Type Natriuretic Pept 1517 pg/mL (0-450)
[2022-05-06 17:31] LABS: Influenza A by IFA negative (Negative); Influenza B by IFA negative (Negative); SARS Covid-2 Antigen negative (Negative)
--- NOTE | 2022-05-06 18:36 | USCV_ITS ---
Tresa Abrams Age: 77 Gender: F : 1945 Exam Date: 05/06/2022 21:47 Ordering Phys: Patrick Varner MD Technologist: NINA Exam Location: [facility] – [place] Indication: shortness of breath, presenting in ER with saturation levels in the 80s with room air. Atrial fibrillation. SVT. BP: 176 / 82 HR: 105 Rhythm: Sinus Technical Quality: Adequate MEASUREMENTS (Male / Female) Normal Values 2D ECHO LV Diastolic Diameter PLAX 3.7 cm 4.2 - 5.9 / 3.9 - 5.3 cm LV Systolic Diameter PLAX 2.2 cm IVS Diastolic Thickness 1.4 cm 0.6 - 1.0 / 0.6 - 0.9 cm IVS Systolic Thickness 2.2 cm LVPW Diastolic Thickness 1.5 cm 0.6 - 1.0 / 0.6 - 0.9 cm LVPW Systolic Thickness 1.6 cm LVOT Diameter 2.0 cm LV Ejection Fraction 2D Teich 71.4 % LV Ejection Fraction MOD 2C 77.9 % LV Ejection Fraction 2C AL 77.7 % LA Diameter 5.5 cm LA Width 5.0 cm LA Height 7.5 cm RA Width 5.1 cm RA Height 6.9 cm Aorta at Sinotubular Diameter 2.7 cm IVC Diameter 1.9 cm M-MODE Aortic Annulus Diameter 2.9 cm LA Ao Ratio MM 2.0 MV E Point Septal Separation 1.3 cm DOPPLER AV Peak Velocity 194.0 cm/s LVOT Peak Velocity 113.0 cm/s AV Area Cont Eq vti 2.0 cm squared AV Area Cont Eq pk 1.8 cm squared MV Area PHT 3.0 cm squared MV E' Velocity 93.5 cm/s Mitral E to MV E' Ratio 14.8 Mitral E to LV E' Lateral Ratio 16.3 Mitral E to LV E' Septal Ratio 13.6 TR Peak Velocity 338.3 cm/s TR Peak Gradient 45.8 mmHg TV Peak E Velocity 72.0 cm/s Right Atrial Pressure 10.0 mmHg Pulmonary Artery Systolic Pressu 55.8 mmHg PV Peak Velocity 108.0 cm/s RV Acceleration Time 0.0 s RV Ejection Time 0.3 s RV AcT/ET 0.1 FINDINGS Left Ventricle Left ventricle is normal in size. LV systolic function is normal with EF of 65 to 70%. No regional wall motion abnormalities are seen. Right Ventricle Normal in size and function Right Atrium Dilated Left Atrium Dilated Mitral Valve Mild mitral annular calcification is seen. Aortic Valve Structurally normal aortic valve. No significant stenosis or regurgitation seen. Tricuspid Valve Mild tricuspid regurgitation. RVSP is more than 60 mmHg. This is consistent with severe pulmonary hypertension. Pulmonic Valve Not well-visualized Pericardium Normal Aorta Normal in size IVC Appears to be normal CONCLUSIONS LV systolic function is normal with EF 65 to 70% Biatrial dilation Mild mitral annular calcification is seen. Mild tricuspid regurgitation Severe pulmonary hypertension Compared to prior echocardiogram from 08/2021, patient now has severe pulmonary hypertension Edgard Florence MD (Electronically Signed) Final Date: 07 May 2022 14:51 S
--- NOTE | 2022-05-06 18:36 | USCV_ITS ---
Tresa Abrams Age: 77 Gender: F : 1945 Exam Date: 05/06/2022 21:22 Ordering Phys: Patrick Varner MD Technologist: NINA Exam Location: [facility] – [place] Indication: hypoxia in 80s with room air. No history of DVT per patient. HISTORY: hypoxia in 80s with room air. No history of DVT per patient. PROCEDURES: Venous duplex imaging was performed in bilateral lower extremities. The following venous structures were evaluated: common femoral vein, profunda vein, proximal portion of the greater saphenous vein, superficial femoral vein, and the popliteal vein. In addition, the posterior tibial veins were evaluated. FINDINGS: Normal 2-D Doppler and augmentation and compressibility throughout the lower extremity venous structures. Additional imaging through the proximal calf veins also reveals no thrombus. Limited evaluation of the greater saphenous vein is patent with no thrombus.. Complex cystic mass with low level echos and no vascularity measuring 4.0 cm in the right popliteal fossa. Complex cystic mass with low level echos and no vascularity measuring 5.1 in the left popliteal fossa. CONCLUSIONS No DVT bilateral lower extremities. Bilateral Bakers cysts. Dr. Shirley Armando DO (Electronically Signed) Final Date: 07 May 2022 07:42 S
--- NOTE | 2022-05-06 18:37 | ECG_ITS ---
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 Measurements Intervals [place] Rate: 103 P: 0 MA: 0 QRS: 11 QRSD: 105 T: 89 QT: 329 QTc: 432 Interpretive Statements ATRIAL FIBRILLATION WITH RAPID VENTRICULAR RESPONSE POSSIBLE ANTERIOR MYOCARDIAL INFARCTION , PROBABLY OLD [30 ms Q WAVE IN V3/V4, OR R < 0.2 mV IN V4] ABNORMAL RHYTHM ECG Compared to ECG 04/06/2022 15:12:04 No significant changes Electronically Signed On 05-06-2022 22:50:28 LOAN PROCESSOR by Edgard Florence M.D. [id number]
--- NOTE | 2022-05-06 18:42 | P.HP_ITS ---
Providers/Chief Complaint Admitting Physician: Patrick Varner MD Primary Care Provider: Eran Henry DO Chief Complaint: Low O2 History of Present Illness Tresa Abrams is a 77 year old female with past medical history of hypertension diabetes recent CVA, SVT, Came from home with chief complaint of worsening shortness of breath going on for the last few days, associated with nasal congestion runny nose cough, no fever vomiting diarrhea, she went to see her PCP today where she was found to be hypoxic, pulse ox was reading at 88%, initially she was prescribed treatment for bronchitis, and was sent home, and was asked to monitor her pulse ox if she continued to worsen or continued to experience significant desaturation, return to the ER. She was requiring 10 L oxygen through nonrebreather mask to maintain a decent saturation. When she came in the ER x-ray chest as well as CTA was done: CTA chest with contrast showed bilateral extensive B/L pulmonary embolism. Extensive multifocal pulmonary embolism within the distal left main pulmonary artery and lobar/segmental branches some of which are occlusive and nearly occlusive bilaterally. Findings consistent with right heart strain.Small peripheral wedge-shaped opacity in the right upper lobe which may reflect a small pulmonary infarct. She has been started on heparin drip in the ER. Review of Systems General: Reports: 10 or more systems reviewed and unremarkable except in HPI and below Const: Denies: fever(s), chills, body aches, change in appetite or diaphoresis Card: Reports: dyspnea on exertion and orthopnea; Denies: palpitations, edema, swelling of feet/ankles or leg pain with exertion Resp: Reports: dyspnea and productive cough; Denies: wheezing or pain on inspiration GI: Denies: abdominal pain, nausea, vomiting, diarrhea or constipation : Denies: flank pain Musc: Denies: back pain, extremity pain or extremity swelling Neuro: Denies: headache(s), difficulty walking or confusion Medications/Allergies Home Medications Medication Instructions Recorded Confirmed Last Taken Type ascorbic acid (vitamin C) 1,000 mg 2,000 mg PO QAM 08/14/21 05/06/22 05/06/22 History tablet (Vitamin C) atorvastatin 40 mg tablet 40 mg PO QPM 08/14/21 05/06/22 05/05/22 History cholecalciferol (vitamin D3) 25 4,000 unit PO QAM 08/14/21 05/06/22 05/06/22 History mcg (1,000 unit) capsule (Vitamin D3) ferrous sulfate 325 mg (65 mg 325 mg PO BID 08/14/21 05/06/22 05/06/22 History iron) tablet (FeroSul) fluoxetine 40 mg capsule 40 mg PO QAM 08/14/21 05/06/22 05/06/22 History metformin 500 mg tablet,extended 1,000 mg PO DAILY 08/14/21 05/06/22 05/06/22 History release 24 hr carvedilol 25 mg tablet 25 mg PO BID 11/07/21 05/06/22 05/06/22 History hydrochlorothiazide 25 mg tablet 25 mg PO DAILY 11/07/21 05/06/22 05/06/22 History lisinopril 40 mg tablet 40 mg PO BID 11/07/21 05/06/22 05/06/22 History albuterol sulfate 90 mcg/actuation 2 puff inhalation Q6H PRN 05/06/22 05/06/22 05/06/22 Rx aerosol inhaler shortness of breath or wheezing #8.5 grams amlodipine 10 mg tablet 5 mg PO DAILY 05/06/22 05/06/22 05/06/22 History aspirin 81 mg tablet,delayed 81 mg PO DAILY 05/06/22 05/06/22 05/06/22 History release azithromycin 250 mg tablet See Rx Instructions PO .COMPLEX #6 05/06/22 05/06/22 05/06/22 Rx tabs benzonatate 200 mg capsule 200 mg PO TID PRN cough #20 caps 05/06/22 05/06/22 05/06/22 Rx melatonin 5 mg tablet 5 - 10 mg PO DAILY 05/06/22 05/06/22 05/05/22 History Allergies Allergy/AdvReac Type Severity Reaction Status Date / Time Penicillins Allergy itching Verified 05/06/22 16:34 and swelling c[place] [facility] [place] AdvReac ALGY-Rash Verified 05/06/22 16:34 PFSH Acute PFSH: Medical History (Updated 05/06/22 @ 18:03 by Braulio Moreno MD) Bronchitis Diabetes Hypertension Hypoxia URI (upper respiratory infection) Surgical History (Updated 05/06/22 @ 10:07 by Sanju Foy MD) History of appendectomy History of cholecystectomy Family History Mother Myocardial infarct Hypertension Diabetes Sister Hypertension Diabetes Denies family history of Stroke Social History Smoking and tobacco status: never smoked Alcohol intake: never Vitals/I&O/Wt Last Vital Signs Temp 98.5 F 05/06/22 15:17 Pulse 99 05/06/22 16:08 Resp 16 05/06/22 16:02 BP 174/93 05/06/22 15:17 Pulse Ox 89 L 05/06/22 16:02 O2 Del Method 05/06/22 16:02 O2 Flow Rate 6 05/06/22 16:02 Weight last 48 hrs Weight 97.522 kg Physical Exam Const: COMMON NORMALS: patient oriented x3 HENMT: COMMON NORMALS: normocephalic and atraumatic HEAD & SCALP: normocephalic and atraumatic Resp: COMMON NORMALS: clear to auscultation bilaterally AUSCULTATION: clear to auscultation bilaterally Cardio: COMMON NORMALS: regular rate, regular rhythm, S1 normal heart sound present, S2 normal heart sound present, No gallops present (Cardio), No murmurs present (Cardio), No rub (Cardio) and Peripheral pulses 2+ throughout RATE: regular rate RHYTHM: regular rhythm HEART SOUNDS: S1 normal heart sound present and S2 normal heart sound present PERIPHERAL PULSES: Peripheral pulses 2+ throughout GI: COMMON NORMALS: Normal to inspection, nondistended, normoactive bowel sounds present, Soft to palpation, non-tender, No hepatosplenomegaly present and no masses AUSCULTATION: Yes normoactive bowel sounds PALPATION: Yes Soft to palpation and Yes No hepatosplenomegaly present RECTAL EXAM: deferred Extremity: COMMON NORMALS: no clubbing, cyanosis or edema and no pedal edema Neuro: COMMON NORMALS: patient oriented x3 Data 05/06/22 15:38 05/06/22 15:38 A&P Assessment and plan (1) Bilateral pulmonary embolism: (2) Hypoxia: (3) Hypertension: (4) SVT (supraventricular tachycardia): (5) Diabetes: Plan 77 year old female with past medical history of hypertension diabetes recent CVA, SVT, Came from home with chief complaint of worsening shortness of breath going on for the last few days, associated with nasal congestion runny nose cough, no fever vomiting diarrhea, she went to see her PCP today where she was found to be hypoxic, pulse ox was reading at 88%, initially she was prescribed treatment for bronchitis, and was sent home, and was asked to monitor her pulse ox if she continued to worsen or continued to experience significant desaturation, return to the ER. Assessment: Acute hypoxic respiratory failure secondary to acute pulmonary embolism: CTA chest with contrast showed bilateral extensive B/L pulmonary embolism. Extensive multifocal pulmonary embolism within the distal left main pulmonary artery and lobar/segmental branches some of which are occlusive and nearly occlusive bilaterally. Findings consistent with right heart strain.Small peripheral wedge-shaped opacity in the right upper lobe which may reflect a small pulmonary infarct. Patient is currently requiring 10 L oxygen through nonrebreather mask, has evident shortness of breath. Follow 2D echo: B/L Lower extremity Doppler vein: Currently on heparin drip, will plan to switch her on oral anticoagulation Supplemental oxygen as needed. Low threshold for HHFNC History of hypertension: Continue amlodipine lisinopril hydrochlorothiazide History of SVT: Continue carvedilol History of recent CVA: Continue aspirin and statin History of diabetes: Continue SSI Monitor fingerstick glucose CODE STATUS: Full code DVT prophylaxis not needed on therapeutic anticoagulation Attestations Medical Necessity Statement*: Needs to be in hospital for management of acute pulm embolism. Anticipated length of stay greater than 2 midnights Time Spent in Patient Care: Greater than 35 minutes (>than 50% of time spent in counselling and/or direct pt care on unit) . Coding Level of Care Code Acute Code for Chg Fwd Diagnoses Bilateral pulmonary embolism I26.99 Hypoxia R09.02 Hypertension I10 SVT (supraventricular tachycardia) I47.1 Diabetes E11.9
[2022-05-06 19:18] LABS: Troponin(5th) Baseline 17 ng/L (0-10)
[2022-05-06 20:12] LABS: Troponin 5 2HR 16.83 ng/L (0-10)
[2022-05-06 20:13] LABS: Troponin 5 2HR Delta -0.17 ABS# (0-10)
[2022-05-06] MEDS: heparin 5,000 unit/mL INJ 1 mL IV (20:24)
[2022-05-06] MEDS: heparin drip 25,000 UNIT/500 ML PREMIX 27 UNIT IV (20:25)
--- NOTE | 2022-05-06 20:37 | ECG_ITS ---
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 Measurements Intervals [place] Rate: 78 P: 0 MO: 0 QRS: -20 QRSD: 113 T: 65 QT: 415 QTc: 475 Interpretive Statements ATRIAL FLUTTER POSSIBLE ANTERIOR MYOCARDIAL INFARCTION , PROBABLY OLD [30 ms Q WAVE IN V3/V4, OR R < 0.2 mV IN V4] ABNORMAL RHYTHM ECG Compared to ECG 05/07/2022 00:58:56 Atrial fibrillation no longer present Myocardial infarct finding still present Electronically Signed On 05-07-2022 16:13:17 CITY COLLECTOR by Guillermina Pressley M.D. [email or web address] Networksw[facility] women and infantsAllakosfirelands [facility].[place]/store/[id number]
[2022-05-06 23:32] LABS: Glucose Point of Care 239 mg/dL (70-110)
[2022-05-07] VITALS (266 sets, daily range): BP systolic 82–158; BP diastolic 53–110; PULSE 67–133; RESP 14–31; TEMP 36.9; O2SAT 88–100
--- NOTE | 2022-05-07 00:58 | ECG_ITS ---
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 Measurements Intervals [place] Rate: 93 P: 0 AK: 0 QRS: -24 QRSD: 106 T: 120 QT: 325 QTc: 405 Interpretive Statements ATRIAL FIBRILLATION LOW QRS VOLTAGE IN EXTREMITY LEADS [QRS DEFLECTION < 0.5 mV IN LIMB LEADS] POSSIBLE ANTERIOR MYOCARDIAL INFARCTION , PROBABLY OLD [30 ms Q WAVE IN V3/V4, OR R < 0.2 mV IN V4] ABNORMAL RHYTHM ECG Compared to ECG 05/06/2022 20:13:17 Low QRS voltage now present Myocardial infarct finding still present Electronically Signed On 05-08-2022 1:59:01 DYER ASSISTANT by Guillermina Pressley M.D. [email or web address] [email or web address].[employer]/store/[id number]
[2022-05-07 03:09] LABS: Basophils % 0.2 %; Hemoglobin 10.8 g/dL (11.5-15.3); Lymphocytes # 0.5 10^3/uL (0.8-4.8); Lymphocytes % 8.8 %; Mean Corpuscular HGB Conc 30.9 g/dL (30.0-36.0); Mean Corpuscular Hemoglobin 27.3 pg (28.0-34.0); Mean Corpuscular Volume 88.4 fl (81-99); Mean Platelet Volume 9.9 fL (7.4-10.4); Monocytes # 0.1 10^3/uL (0.2-0.9); Monocytes % 1.2 %; Neutrophils # 5.21 10^3/uL (1.8-7.7); Neutrophils % 89.5 %; Nucleated Red Blood Cells % 0 %; Platelet Count 244 10^3/cmm (130-400); Red Blood Count 3.96 10^6/uL (4.1-5.3); Red Cell Distribution Width 14.4 % (12.1-15.1); White Blood Count 5.8 10^3/uL (4.0-10.0)
[2022-05-07 03:18] LABS: Alanine Aminotransferase 13 U/L (0-33); Albumin Level 3.8 g/dL (3.5-5.2); Alkaline Phosphatase 146 U/L (35-105); Anion Gap 17.3 (5-19); Aspartate Amino Transferase 15 U/L (0-32); Blood Urea Nitrogen 15 mg/dL (8-23); Calcium 9.2 mg/dL (8.5-10.5); Carbon Dioxide 26 mmol/L (22-29); Chloride 98 mmol/L (98-107); Globulin 2.9 g/dL (1.3-4.6); Glucose 229 mg/dL (65-115); Magnesium 1.6 mg/dL (1.7-2.3); Osmolality Calculated 294 mOsm/kg (285-295); Potassium 3.3 mmol/L (3.5-5.1); Sodium 138 mmol/L (136-145); Total Protein 6.7 g/dL (6.6-8.7); Troponin 5 6HR 16.52 ng/L (0-10)
--- NOTE | 2022-05-07 03:24 | PC.NURSE ---
Patient arrived from ED and was able to transfer to bed. Heparin drip started per protocol for treatment of Bilateral PE. Family stated patient had stroke on 04/06 and was treated in [place]. Patient presented with Afib on monitor despite reports from ED department of sinus rhythm. Family states that patient was in Afib at the time of stroke as well, however, patient was not started on any anti-coag therapy. Patient has maintained SPO2 of >94% on non-rebreather. Patient has rested well throughout the evening.
[2022-05-07 03:27] LABS: Troponin 5 6HR Delta -0.48 ng/L (0-12)
[2022-05-07 03:58] LABS: Partial Thromboplastin Time 165.6 SECONDS (23.9-36.7)
--- NOTE | 2022-05-07 04:43 | PC.NURSE ---
Family reports patient has difficulty taking pills since stroke. Liquids were thickened for patient and family requests pills be administered in applesauce.
[2022-05-07] MEDS: cholecalciferol (vitamin D3) 1,000 unit Tablet 4000 UNIT PO (06:06)
[2022-05-07] MEDS: fluoxetine 20 mg Capsule 40 MG PO (06:06)
[2022-05-07 07:51] LABS: Glucose Point of Care 230 mg/dL (70-110)
[2022-05-07] MEDS: amlodipine 10 mg Tablet 5 MG PO (08:11)
[2022-05-07] MEDS: carvedilol 25 mg Tablet PO ×2 (08:12→17:28)
[2022-05-07] MEDS: aspirin 81 mg EC Tablet PO (08:12)
[2022-05-07] MEDS: ferrous sulfate EC 325 mg Tablet PO ×2 (08:12→17:28)
[2022-05-07] MEDS: hydroCHLOROthiazide 25 mg Tablet PO (08:12)
[2022-05-07] MEDS: insulin lispro 100 unit/1 mL SUBCUT ×2 (08:13→17:35)
[2022-05-07] MEDS: lisinopril 20 mg Tablet 40 MG PO ×2 (08:14→17:28)
[2022-05-07] MEDS: potassium chloride ER 20 mEq Tablet 40 MEQ PO (09:32)
[2022-05-07] MEDS: benzonatate 100 mg Capsule PO ×2 (09:33→23:48)
[2022-05-07] MEDS: magnesium sulfate premix 2 GM/50 ML PIGGYBACK IV (09:33)
[2022-05-07] MEDS: azithromycin 500 MG in sodium chloride 0.9% 250 ML 250 MG IV (09:33)
[2022-05-07 10:15] LABS: Partial Thromboplastin Time 47.9 SECONDS (23.9-36.7)
--- NOTE | 2022-05-07 10:50 | PC.CHAP ---
Pastoral Care Encounter/Spiritual Assessment Type of Contact [] Declined senior premium auditor visit [] Patient/Family/Request visit [] Outpatient visit [] Follow-up visit [] Physician referral [] Code/Alert [x] Routine visit [] Staff referral [] Actively dying [x] Patient sleeping [] Family support [] [] Out of room [] Palliative care [] [] Receiving care in room [] Pre-surgical visit [] Trauma [] Long length of stay [x] ICU visit [] Other: Relational/Emotional Strength [] Patient feels connected with others/family/visitors/staff [] Distress [] Loneliness/isolation [] Abandonment Spirituality of Patient [] Person of Adriana [] Attends Yazidi of their Adriana [] Believes in Prayer [] Reads Bible or Cheondoism materials [] There are Spiritual issues to be addressed Resident Care Provider Interventions [x] Prayer [] Active listening [] Non-anxious presence [] Spiritual/emotional support [] Crisis/trauma care [] Spiritual counseling [] Bereavement support [] Provided bereavement packet [] Provided Bible/devotional materials [] Provided toy/stuffed animal, coloring book to patient or family member [] Provided Communion [] Anointing/[place] [] Salvation [x] Completed spiritual assessment [] Other: Impact on Illness or Injury [] Angry [] Fearful [] Anxious [] Often cries [] Exhaustion [] Unable to work [] Unable to attend jainism [] Unable to walk/stand [] Unable to read [] Unable to drive [] Unable to eat/drink [] Unable to sleep [] Unable to be with family [] Patient intubated [] Other: Summary Time spent with patient
[2022-05-07] MEDS: enoxaparin 100 mg/mL Syringe SUBCUT ×2 (13:51→23:48)
--- NOTE | 2022-05-07 15:00 | P.PN_ITS ---
Subjective Subjective: Patient was seen and examined this morning shortness of breath is improved, currently saturating well on 3 LS supplemental oxygen through nasal cannula. Medications: Medication Review Details: Generic Name Dose Route Start Last Admin Trade Name Kristie PRN Reason Stop Dose Admin Amlodipine Besylat e 5 mg 05/07/22 09:00 05/07/22 08:11 Amlodipine 10 Mg Tablet PO 5 mg DAILY ESPERANZA Administration Aspirin 81 mg 05/07/22 09:00 05/07/22 08:12 Aspirin 81 Mg Ec Tablet PO 81 mg DAILY ESPERANZA Administration Benzonatate 100 mg 05/07/22 09:01 05/07/22 09:33 Benzonatate 100 Mg Capsule PO 100 mg TID PRN Administration COUGH Carvedilol 25 mg 05/07/22 09:00 05/07/22 08:12 Carvedilol 25 Mg Tablet PO 25 mg BID ESPERANZA Administration Enoxaparin Sodium 100 mg 05/07/22 12:15 05/07/22 13:51 Enoxaparin 100 M g/Ml Syringe 1 mg/kg (100 mg) 100 mg SUBCUT Administration Q12H [facility] Ferrous Sulfate 325 mg 05/07/22 09:00 05/07/22 08:12 Ferrous Sulfate Ec 325 Mg Tablet PO 325 mg BID ESPERANZA Administration Fluoxetine HCl 40 mg 05/07/22 06:00 05/07/22 06:06 Fluoxetine 20 Mg Capsule PO 40 mg QAM ESPERANZA Administration Heparin Sodium (Po rcine) 0 unit 05/06/22 18:35 05/06/22 20:24 Heparin 5,000 Un it/Ml Inj 1 Ml IV 4,900 unit PRN PRN Administration Heparin weight-ba se protocol Protocol Hydrochlorothiazid e 25 mg 05/07/22 09:00 05/07/22 08:12 Hydrochlorothiaz pravin 25 Mg Tablet PO 25 mg DAILY [facility] Administration Azithromycin 500 m g/ Sodium 250 mls @ 250 mls /hr 05/07/22 09:15 05/07/22 13:52 Chloride IV Infused Q24H [facility] Infusion Protocol Insulin Human Lisp ro 0 unit 05/07/22 08:00 05/07/22 13:50 Insulin Lispro 1 00 Unit/1 Ml SUBCUT Not Given TIDWM [facility] Protocol Lisinopril 40 mg 05/07/22 09:00 05/07/22 08:14 Lisinopril 20 Mg Tablet PO 40 mg BID ESPERANZA Administration Non-Formulary Medi cation 2,000 mg 05/07/22 06:00 05/07/22 06:06 Ascorbic Acid (V itamin C) [Vitamin C] PO Not Given [facility] Vitamin D 4,000 unit 05/07/22 06:00 05/07/22 06:06 Cholecalciferol (Vitamin D3) 1,000 Unit Tablet PO 4,000 unit QAM [facility] Administration Vitals/I&O/Wt Last Vital Signs Temp 98.1 F 05/06/22 23:21 Pulse 75 05/07/22 13:45 Resp 23 H 05/07/22 13:45 BP 135/70 05/07/22 13:45 Pulse Ox 93 05/07/22 13:45 O2 Del Method 05/07/22 10:23 O2 Flow Rate 3 05/07/22 10:23 05/07/22 05/07/22 05/07/22 06:59 14:59 22:59 Intake Total 205.2 / 205.2 650 / 650 Balance 205.2 / 105.2 650 / 650 Weight last 48 hrs Weight 96.417 kg Weight 97.522 kg Physical Exam Const: COMMON NORMALS: patient oriented x3 HENMT: COMMON NORMALS: normocephalic and atraumatic HEAD & SCALP: normocephalic and atraumatic Resp: COMMON NORMALS: clear to auscultation bilaterally AUSCULTATION: clear to auscultation bilaterally Cardio: COMMON NORMALS: regular rate, regular rhythm, S1 normal heart sound present, S2 normal heart sound present, No gallops present (Cardio), No murmurs present (Cardio), No rub (Cardio) and Peripheral pulses 2+ throughout RATE: regular rate RHYTHM: regular rhythm HEART SOUNDS: S1 normal heart sound present and S2 normal heart sound present PERIPHERAL PULSES: Peripheral pulses 2+ throughout GI: COMMON NORMALS: Normal to inspection, nondistended, normoactive bowel sounds present, Soft to palpation, non-tender, No hepatosplenomegaly present and no masses AUSCULTATION: Yes normoactive bowel sounds PALPATION: Yes Soft to palpation and Yes No hepatosplenomegaly present RECTAL EXAM: deferred Extremity: COMMON NORMALS: no clubbing, cyanosis or edema and no pedal edema Neuro: COMMON NORMALS: patient oriented x3 Data 05/07/22 02:11 05/07/22 02:11 A&P Assessment and plan (1) Bilateral pulmonary embolism: (2) Hypoxia: (3) Hypertension: (4) SVT (supraventricular tachycardia): (5) Diabetes: (6) Pulmonary hypertension: (7) Bronchitis: (8) Hypokalemia: (9) Elevated troponin: Plan 77 year old female with past medical history of hypertension diabetes recent CVA, SVT, Came from home with chief complaint of worsening shortness of breath going on for the last few days, associated with nasal congestion runny nose cough, no fever vomiting diarrhea, she went to see her PCP today where she was found to be hypoxic, pulse ox was reading at 88%, initially she was prescribed treatment for bronchitis, and was sent home, and was asked to monitor her pulse ox if she continued to worsen or continued to experience significant desaturation, return to the ER. Assessment: Acute hypoxic respiratory failure secondary to acute pulmonary embolism: Resolved CTA chest with contrast showed bilateral extensive B/L pulmonary embolism. Extensive multifocal pulmonary embolism within the distal left main pulmonary artery and lobar/segmental branches some of which are occlusive and nearly occlusive bilaterally. Findings consistent with right heart strain.Small peripheral wedge-shaped opacity in the right upper lobe which may reflect a small pulmonary infarct. Patient is currently requiring 10 L oxygen through nonrebreather mask, has evident shortness of breath. 2D echo: Normal LV systolic function with EF of 65 to 70%, biatrial dilation, mild TR. B/L Lower extremity Doppler vein: Negative for DVT: Bilateral? Bakers cysts. Influenza negative COVID rapid negative Initially she was on heparin drip, has been switched to subcu Lovenox, will plan to switch her on oral anticoagulation. Supplemental oxygen as needed. Low threshold for HHFNC Possible bronchitis: Currently on azithromycin will complete 5-day course History of hypertension: Continue amlodipine lisinopril hydrochlorothiazide History of SVT: Continue carvedilol Severe pulmonary hypertension:RVSP is more than 60 mmHg.? Pulmonary follow-up as outpatient History of recent CVA: Continue aspirin and statin History of diabetes: Continue SSI Monitor fingerstick glucose CODE STATUS: Full code DVT prophylaxis not needed on therapeutic anticoagulation Attestations Medical Necessity Statement*: Needs to be in hospital for management of pulmonary embolism. Time Spent in Patient Care: Greater than 35 minutes (>than 50% of time spent in counselling and/or direct pt care on unit) . Coding Level of Care Code Acute Code for Chg Fwd Diagnoses Bilateral pulmonary embolism I26.99 Hypoxia R09.02 Hypertension I10 SVT (supraventricular tachycardia) I47.1 Diabetes E11.9 Pulmonary hypertension I27.20 Bronchitis J40 Hypokalemia E87.6 Elevated troponin R77.8
[2022-05-07] MEDS: atorvastatin 40 mg Tablet PO (17:28)
[2022-05-07 17:50] LABS: Glucose Point of Care 197 mg/dL (70-110)
[2022-05-07] MEDS: bisacodyl 5 mg Tablet 10 MG PO (20:03)
[2022-05-07 21:33] LABS: Glucose Point of Care 168 mg/dL (70-110)
[2022-05-08] VITALS (122 sets, daily range): BP systolic 118–164; BP diastolic 61–100; PULSE 69–102; RESP 11–35; O2SAT 85–98
[2022-05-08 03:12] LABS: Basophils % 0.1 %; Eosinophils % 0.1 %; Hematocrit 34.4 % (37.0-47.0); Hemoglobin 10.5 g/dL (11.5-15.3); Lymphocytes % 10.7 %; Mean Corpuscular HGB Conc 30.5 g/dL (30.0-36.0); Mean Corpuscular Hemoglobin 27.2 pg (28.0-34.0); Mean Corpuscular Volume 89.1 fl (81-99); Mean Platelet Volume 10.1 fL (7.4-10.4); Monocytes % 10.5 %; Neutrophils # 7.14 10^3/uL (1.8-7.7); Neutrophils % 78.2 %; Nucleated Red Blood Cells % 0 %; Platelet Count 265 10^3/cmm (130-400); Red Blood Count 3.86 10^6/uL (4.1-5.3); Red Cell Distribution Width 14.5 % (12.1-15.1); White Blood Count 9.1 10^3/uL (4.0-10.0)
[2022-05-08 03:42] LABS: Alanine Aminotransferase 14 U/L (0-33); Albumin Level 3.7 g/dL (3.5-5.2); Alkaline Phosphatase 127 U/L (35-105); Anion Gap 14.5 (5-19); Aspartate Amino Transferase 18 U/L (0-32); Blood Urea Nitrogen 29 mg/dL (8-23); Calcium 9.2 mg/dL (8.5-10.5); Carbon Dioxide 28 mmol/L (22-29); Chloride 100 mmol/L (98-107); Globulin 2.9 g/dL (1.3-4.6); Glucose 176 mg/dL (65-115); Osmolality Calculated 298 mOsm/kg (285-295); Potassium 3.5 mmol/L (3.5-5.1); Sodium 139 mmol/L (136-145); Total Bilirubin 1.1 mg/dL (0.15-1.2); Total Protein 6.6 g/dL (6.6-8.7)
[2022-05-08] MEDS: cholecalciferol (vitamin D3) 1,000 unit Tablet 4000 UNIT PO (06:10)
[2022-05-08] MEDS: fluoxetine 20 mg Capsule 40 MG PO (06:10)
--- NOTE | 2022-05-08 06:35 | PC.NURSE ---
Patient has rested comfortably throughout this nurse's shift. Sp02 has held in the mid 90s on 4L NC.
[2022-05-08 06:49] LABS: Glucose Point of Care 185 mg/dL (70-110)
[2022-05-08] MEDS: benzonatate 100 mg Capsule PO (08:13)
[2022-05-08] MEDS: ferrous sulfate EC 325 mg Tablet PO (08:13)
[2022-05-08] MEDS: aspirin 81 mg EC Tablet PO (08:13)
[2022-05-08] MEDS: hydroCHLOROthiazide 25 mg Tablet PO (08:13)
[2022-05-08] MEDS: amlodipine 10 mg Tablet 5 MG PO (08:13)
[2022-05-08] MEDS: carvedilol 25 mg Tablet PO (08:13)
[2022-05-08] MEDS: lisinopril 20 mg Tablet 40 MG PO (08:13)
[2022-05-08] MEDS: insulin lispro 100 unit/1 mL SUBCUT (08:14)
--- NOTE | 2022-05-08 12:08 | PM.DCS ---
Discharge Providers Date of Admission: 05/06/22 19:54 Date of Discharge: May 08, 2022 Attending Provider at Admission: Patrick Varner MD Attending Provider at Discharge: Patrick Varner MD Primary Care Provider: Eran Henry DO Diagnoses at Discharge Discharge Diagnosis (1) Bilateral pulmonary embolism: Status: Acute (2) Hypoxia: Status: Acute (3) Hypertension: Status: Acute (4) SVT (supraventricular tachycardia): Status: Acute (5) Diabetes: Status: Acute (6) Pulmonary hypertension: Status: Acute (7) Bronchitis: Status: Acute (8) Hypokalemia: Status: Acute (9) Elevated troponin: Status: Acute Reason for Visit Reason for Visit: Low O2 Hospital Course Hospital Course 77 year old female with past medical history of hypertension diabetes recent CVA, SVT, Came from home with chief complaint of worsening shortness of breath going on for the last few days, associated with nasal congestion runny nose cough, no fever vomiting diarrhea, CTA chest done during the hospital stay showed:Extensive multifocal pulmonary embolism within the distal left main pulmonary artery and lobar/segmental branches some of which are occlusive and nearly occlusive bilaterally. Findings consistent with right heart strain.Small peripheral wedge-shaped opacity in the right upper lobe which may reflect a small pulmonary infarct. She was started on therapeutic anticoagulation with heparin during the hospital stay later transition to Lovenox and was discharged on Eliquis. Likely this provoked PE, in the setting of recent CVA, with more sedentary lifestyle, and recent prolonged hospital stay.For now she will need minimum of 3 months of oral anticoagulation.initially during the hospital stay she was requiring 8 to 10 L of oxygen through nasal cannula. She qualified for 3 L oxygen on ambulation. Lower extremity Doppler vein was negative for DVT, 2D echo done during the hospital stay showed: Normal LV systolic function with EF of 65 to 70%, biatrial dilation, mild TR.Influenza negative COVID rapid negative, patient was also managed for possible bronchitis he was kept on azithromycin has been discharged on p.o. azithromycin, echo showed severe pulmonary hypertension for which she will need to follow-up pulmonary as outpatient, for history of SVT she was continued on carvedilol, for recent history of CVA she was continued on aspirin and statin. Overall patient responded well to above medical management and she was discharged in stable condition to home, she has been advised regarding side effects of anticoagulation major 1 being bleeding, patient and daughter understands. She will continue to follow PCP as outpatient. Physical Exam Const: COMMON NORMALS: patient oriented x3 HENMT: COMMON NORMALS: normocephalic and atraumatic HEAD & SCALP: normocephalic and atraumatic Resp: COMMON NORMALS: clear to auscultation bilaterally AUSCULTATION: clear to auscultation bilaterally Cardio: COMMON NORMALS: regular rate, regular rhythm, S1 normal heart sound present, S2 normal heart sound present, No gallops present (Cardio), No murmurs present (Cardio), No rub (Cardio) and Peripheral pulses 2+ throughout RATE: regular rate RHYTHM: regular rhythm HEART SOUNDS: S1 normal heart sound present and S2 normal heart sound present PERIPHERAL PULSES: Peripheral pulses 2+ throughout GI: COMMON NORMALS: Normal to inspection, nondistended, normoactive bowel sounds present, Soft to palpation, non-tender, No hepatosplenomegaly present and no masses AUSCULTATION: Yes normoactive bowel sounds PALPATION: Yes Soft to palpation and Yes No hepatosplenomegaly present RECTAL EXAM: deferred Extremity: COMMON NORMALS: no clubbing, cyanosis or edema and no pedal edema Neuro: COMMON NORMALS: patient oriented x3 Discharge Data Studies Completed and Pending Completed Studies During Hospitalization Category Date Time Status CT angio chest PE protcl [id number] Stat Cat Scan 05/06/22 16:13 Completed XR chest 1V portable [id number] Stat Exams 05/06/22 15:31 Completed CV. echo complete* [id number] Routine Ultrasound 05/06/22 18:36 Completed US venous duplex lower extremity bilat [CV venous Ultrasound 05/06/22 18:36 [place] [id number]] Routine Radiology Impressions Chest X-Ray 05/06/22 15:31 IMPRESSION: No acute findings. Chest CTA 05/06/22 16:13 IMPRESSION: 1. Extensive multifocal pulmonary embolism within the distal left main pulmonary artery and lobar/segmental branches some of which are occlusive and nearly occlusive bilaterally. Findings consistent with right heart strain. 2. There is a nonspecific small cavitary lesion in the left lower lobe measuring 1.5 cm in size. 3. Small peripheral wedge-shaped opacity in the right upper lobe which may reflect a small pulmonary infarct. COMMENTS: Consistent with the [employer]'s Incidental Findings Committee white paper (J Am Melvin Radiol 2015): In patients aged 35 years and older with an incidental thyroid nodule equal to or greater than 1.[address], MRI or extrathyroidal US, further evaluation with dedicated thyroid US is recommended for patients with normal life expectancy and without comorbidities. For smaller nodules without suspicious features, no further evaluation or follow up is recommended. ADDENDUM: 05/06/22 1804 THIS REPORT CONTAINS FINDINGS THAT MAY BE CRITICAL TO PATIENT CARE. The findings were verbally communicated via telephone conference with OFELIA RAMIREZ at 6:01 PM ADJUNCT SOCIOLOGY PROFESSOR on 05/06/2022. The findings were acknowledged and understood. Laboratory Results WBC 9.1 10^3/uL (4.0-10.0) 05/08/22 02:13 RBC 3.86 10^6/uL (4.1-5.3) L 05/08/22 02:13 Hgb 10.5 g/dL (11.5-15.3) L 05/08/22 02:13 Hct 34.4 % (37.0-47.0) L 05/08/22 02:13 MCV 89.1 fl (81-99) 05/08/22 02:13 MCH 27.2 pg (28.0-34.0) L 05/08/22 02:13 MCHC 30.5 g/dL (30.0-36.0) 05/08/22 02:13 RDW 14.5 % (12.1-15.1) 05/08/22 02:13 Plt Count 265 10^3/cmm (130-400) 05/08/22 02:13 MPV 10.1 fL (7.4-10.4) 05/08/22 02:13 Neut % (Auto) 78.2 % 05/08/22 02:13 Lymph % (Auto) 10.7 % 05/08/22 02:13 Rice % (Auto) 10.5 % 05/08/22 02:13 Eos % (Auto) 0.1 % 05/08/22 02:13 Baso % (Auto) 0.1 % 05/08/22 02:13 Neut # (Auto) 7.14 10^3/uL (1.8-7.7) 05/08/22 02:13 Lymph # (Auto) 1.0 10^3/uL (0.8-4.8) 05/08/22 02:13 Rice # (Auto) 1.0 10^3/uL (0.2-0.9) H 05/08/22 02:13 Eos # (Auto) 0.0 10^3/uL (0.0-0.8) 05/08/22 02:13 Baso # (Auto) 0.0 10^3/uL (0.0-0.1) 05/08/22 02:13 Nucleated RBC % (auto) 0 % 05/08/22 02:13 Nucleated RBCs # 0.0 /100WBC 05/08/22 02:13 APTT 47.9 SECONDS (23.9-36.7) H D 05/07/22 09:42 Specimen Type Arterial 05/06/22 15:45 Sample Site Radial, left 05/06/22 15:45 ABG pH 7.48 (7.35-7.45) H 05/06/22 15:45 ABG pCO2 36.5 mmHg (35-45) 05/06/22 15:45 ABG pO2 53.3 mmHg (80.0-100.0) L 05/06/22 15:45 ABG HCO3 27.4 mmol/L (22-26) H 05/06/22 15:45 ABG Base Excess 3.8 mmol/L (-2.0-2.0) H 05/06/22 15:45 Catrachito Test Pos 05/06/22 15:45 Hematocrit 34.9 % (37-47) L 05/06/22 15:45 O2 Delivery Device Nc 05/06/22 15:45 O2 Liters/Min 6.0 % 05/06/22 15:45 Cafeteria Assistant ID [email or web address] 05/06/22 15:45 Sodium 139 mmol/L (136-145) 05/08/22 02:13 Potassium 3.5 mmol/L (3.5-5.1) 05/08/22 02:13 Chloride 100 mmol/L (98-107) 05/08/22 02:13 Carbon Dioxide 28 mmol/L (22-29) 05/08/22 02:13 Anion Gap 14.5 (5-19) 05/08/22 02:13 BUN 29 mg/dL (8-23) H 05/08/22 02:13 Creatinine 1.0 mg/dL (0.5-0.9) H 05/08/22 02:13 GFR Calculation Not Reportable 05/08/22 02:13 Glucose 176 mg/dL (65-115) H 05/08/22 02:13 POC Glucose 185 mg/dL (70-110) H 05/08/22 06:46 Calculated Osmolality 298 mOsm/kg (285-295) H 05/08/22 02:13 Calcium 9.2 mg/dL (8.5-10.5) 05/08/22 02:13 Magnesium 1.6 mg/dL (1.7-2.3) L 05/07/22 02:11 Total Bilirubin 1.1 mg/dL (0.15-1.2) 05/08/22 02:13 AST 18 U/L (0-32) 05/08/22 02:13 ALT 14 U/L (0-33) 05/08/22 02:13 Alkaline Phosphatase 127 U/L (35-105) H 05/08/22 02:13 Troponin T Baseline 17 ng/L (0-10) H 05/06/22 16:37 Troponin T 120 Minute 16.83 ng/L (0-10) H 05/06/22 19:45 Delta Troponin T -0.17 ABS# (0-10) L 05/06/22 19:45 Troponin T Hi Sens 6Hr 16.52 ng/L (0-10) H 05/07/22 02:11 Troponin T Hi Sens 6Hr Delta -0.48 ng/L (0-12) L 05/07/22 02:11 NT-Pro-B Natriuret Pep 1517 pg/mL (0-450) H 05/06/22 16:37 Total Protein 6.6 g/dL (6.6-8.7) 05/08/22 02:13 Albumin 3.7 g/dL (3.5-5.2) 05/08/22 02:13 Globulin 2.9 g/dL (1.3-4.6) 05/08/22 02:13 Influenza Type A Ag negative (Negative) 05/06/22 15:57 Influenza Type B Ag negative (Negative) 05/06/22 15:57 SARS-CoV-2 Ag (Rapid) negative (Negative) 05/06/22 15:57 Vitals Last Vital Signs Temp 98.5 F 05/07/22 19:00 Pulse 77 05/08/22 09:05 Resp 22 H 05/08/22 08:55 BP 121/61 05/08/22 09:30 Pulse Ox 96 05/08/22 11:09 O2 Del Method 05/08/22 07:56 O2 Flow Rate 3 05/08/22 09:07 Discharge Plan Discharge Patient Disposition: Home Condition: Stable Prescriptions: New benzonatate 100 mg Capsule 100 mg PO TID PRN (Reason: Cough) 14 Days Qty: 30 0RF Eliquis 5 mg tablet 5 mg PO BID Qty: 90 2RF Rx Instructions: Take 10 mg po BID for next 7 days and then 5 mg po BID thereafter Continued aspirin 81 mg tablet,delayed release (DR/EC) 81 mg PO DAILY azithromycin 250 mg tablet See Rx Instructions PO .COMPLEX Qty: 6 0RF Rx Instructions: For 250 mg dose pack: take 500 mg today (day 1), then 250 mg for 4 days (days 2-5) PO benzonatate 200 mg capsule 200 mg PO TID PRN (Reason: cough) Qty: 20 0RF albuterol sulfate 90 mcg/actuation HFA aerosol inhaler 2 puff inhalation Q6H PRN (Reason: shortness of breath or wheezing) Qty: 8.5 0RF fluoxetine 40 mg capsule 40 mg PO QAM atorvastatin 40 mg tablet 40 mg PO QPM ascorbic acid (vitamin C) [Vitamin C] 1,000 mg Tablet 2,000 mg PO QAM ferrous sulfate [FeroSul] 325 mg (65 mg iron) tablet 325 mg PO BID metformin 500 mg tablet extended release 24 hr 1,000 mg PO DAILY cholecalciferol (vitamin D3) [Vitamin D3] 25 mcg (1,000 unit) Capsule 4,000 unit PO QAM amlodipine 10 mg tablet 5 mg PO DAILY lisinopril 40 mg tablet 40 mg PO BID carvedilol 25 mg tablet 25 mg PO BID hydrochlorothiazide 25 mg tablet 25 mg PO DAILY melatonin 5 mg Tablet 5 - 10 mg PO DAILY Discharge Orders: Discharge Order (Routine); Ordered 05/08/22 Ordered By: Patrick Varner Other Ambulatory Orders: DME: Oxygen (Order) Location: None Selected Ordered By: Patrick Varner Referrals: Eran Henry DO [Primary Care Provider] - 1 week (This appointment has been scheduled - [place] at time of 1:30 pm ) Patient Instructions: Benzonatate (By mouth) (Freddy Monahan), Apixaban (By mouth) (Eliquis), Pulmonary Embolism (DC), Using Oxygen at Home (DC), Hypoxia (GEN), Fall Prevention (DC), Opioid Safety Discharge Attestations Time Spent in Discharge Care*: greater than 30 min Quality Metrics Clinical Quality Measures [ No reported AMI, CVA or VTE this stay] Coding Level of Care Code Acute Chg FW DC note Diagnoses Bilateral pulmonary embolism I26.99 Hypoxia R09.02 Hypertension I10 SVT (supraventricular tachycardia) I47.1 Diabetes E11.9 Pulmonary hypertension I27.20 Bronchitis J40 Hypokalemia E87.6 Elevated troponin R77.8
== END 2022-05-08 11:09 | disposition home or self-care (01) | DRG 175 ==
LOC: ER 18:03 → ICU 18:48
PROVIDERS: Internal Medicine; Admitting Provider Internal Medicine; Emergency Provider Family Medicine; PCP Family Medicine; Visit Provider Internal Medicine
DX: I26.99 Other pulmonary embolism without acute cor pulmonale (principal); J96.01 Acute respiratory failure with hypoxia; I47.1 Supraventricular tachycardia; I10 Essential (primary) hypertension; E11.9 Type 2 diabetes mellitus without complications; I27.20 Pulmonary hypertension, unspecified; Z86.73 Personal history of transient ischemic attack (TIA), and cerebral infarction without residual deficits; J40 Bronchitis, not specified as acute or chronic; Z79.82 Long term (current) use of aspirin; Z79.51 Long term (current) use of inhaled steroids; Z79.84 Long term (current) use of oral hypoglycemic drugs
CPT/HCPCS: 36415; 36416; 36600; 71045; 71275; 80053; 82803; 82962; 83735; 83880; 84484; 85025; 85730; 87426; 87804; 92523; 92610; 93005; 93306; 93970; 94640; 94760; 96365; 96372; 96374; 96375; 99285; J0456; J1644; J1650; J1815; J1940; J2930; J3475; J7050; J7613; J7644; Q9967

== ENCOUNTER → 2022-05-16 11:44 | Outpatient (BNVA) | payer MEDICAID, SELFPAY | PROVIDERS: PCP Family Medicine; Visit Provider Internal Medicine Cardiovascular Disease | DX: I48.91 Unspecified atrial fibrillation (principal); Z79.01 Long term (current) use of anticoagulants; I47.1 Supraventricular tachycardia; I27.20 Pulmonary hypertension, unspecified; R09.02 Hypoxemia; R77.8 Other specified abnormalities of plasma proteins; I26.99 Other pulmonary embolism without acute cor pulmonale; I12.9 Hypertensive chronic kidney disease with stage 1 through stage 4 chronic kidney disease, or unspecified chronic kidney disease; E11.22 Type 2 diabetes mellitus with diabetic chronic kidney disease; N18.9 Chronic kidney disease, unspecified; Z79.84 Long term (current) use of oral hypoglycemic drugs | CPT/HCPCS: 99214 ==

== ENCOUNTER → 2022-05-22 15:05 | Outpatient (BNVA) | payer MEDICAID, SELFPAY | PROVIDERS: PCP Family Medicine; Visit Provider Specialist | DX: M17.0 Bilateral primary osteoarthritis of knee (principal) | CPT/HCPCS: 73560; 73565 ==

== ENCOUNTER 2022-05-22 16:04 | Outpatient (CLI) | payer MEDICAID, SELFPAY | END 2022-05-22 16:05 | disposition home or self-care (01) | LOC: SPT 16:07 | PROVIDERS: PCP Family Medicine; Visit Provider Specialist | DX: Z46.89 Encounter for fitting and adjustment of other specified devices (principal); M25.561 Pain in right knee; M17.11 Unilateral primary osteoarthritis, right knee | CPT/HCPCS: 97760; 99204; L1812 ==

== ENCOUNTER → 2022-06-13 07:53 | Outpatient (BNVA) | payer MEDICAID, SELFPAY | PROVIDERS: PCP Family Medicine; Visit Provider Specialist | DX: M17.0 Bilateral primary osteoarthritis of knee (principal) | CPT/HCPCS: 20610; J1100; J2795; J3301 ==

== ENCOUNTER → 2022-06-14 11:52 | Outpatient (BNVA) | payer MEDICAID, SELFPAY | PROVIDERS: PCP Family Medicine; Referring Provider Student in an Organized Health Care Education/Training Program; Visit Provider Specialist | DX: I27.20 Pulmonary hypertension, unspecified (principal); I47.1 Supraventricular tachycardia; R53.81 Other malaise; Z86.73 Personal history of transient ischemic attack (TIA), and cerebral infarction without residual deficits; Z86.711 Personal history of pulmonary embolism; Z99.81 Dependence on supplemental oxygen; Z79.01 Long term (current) use of anticoagulants | CPT/HCPCS: 99205 ==

== ENCOUNTER → 2022-06-24 11:50 | Outpatient (BNVA) | payer MEDICAID, SELFPAY | PROVIDERS: PCP Family Medicine; Visit Provider Internal Medicine | DX: I63.9 Cerebral infarction, unspecified (principal); I26.99 Other pulmonary embolism without acute cor pulmonale; I27.20 Pulmonary hypertension, unspecified | CPT/HCPCS: 93270 ==

== ENCOUNTER 2022-07-04 08:58 | Outpatient (CLI) | payer MEDICAID, SELFPAY ==
--- NOTE | 2022-07-04 09:00 | CT_ITS ---
WS: [id number] CTA HEAD TECHNIQUE: Contrast enhanced CTA of the head with coronal and sagittal reformatted images and maximum intensity projection (MIP) images. NASCET criteria utilized. CLINICAL INFORMATION: I63.9 - Cerebral infarction, unspecified COMPARISON: CT April 06, 2022 DLP: 1633.[address] scans at [facility] use at least one of these dose optimization techniques: automated e xposure control; mA and/or kV adjustment per patient size (includes targeted exams where dose is matc hed to clinical indication); or iterative reconstruction. FINDINGS: No evidence of intracranial hemorrhage or mass effect. Chronic infarcts in the LEFT centrum semiovale and periventricular white matter are new or have evolved since April 06, 2022. Mild ex vacuo dilatation LEFT lateral ventricle associated encephalomalacia. No extra-axial fluid collections . Vascular calcification. Chronic lacunar infarct LEFT caudate. Mastoid air cells and paranasal sinuses are well aerated. Distal vertebral bodies are patent. Basilar artery is patent. Normal vascularity to the SAFE [employer]ULT SERVICE MECH[employer]IC territory bilaterally. Both ICAs are patent at the skull base. Cavernous carotid calcification. Patent anterior communicatin g artery. Normal vascularity to the ANSHU and MCA territories bilaterally. No evidence of proximal flow limiting stenosis or aneurysm. Normal visualized dural venous sinuses. CT/CT angio head [id number] IMPRESSION: 1. No evidence of proximal flow limiting stenosis. 2. Chronic infarcts in the LEFT centrum semiovale with encephalomalacia new or evolved since the prior CT. Mild ex vacuo dilatation LEFT lateral ventricle. 3. Chronic lacunar infarct LEFT caudate. 4. Intracranial vascular calcification.
== END 2022-07-04 08:59 | disposition home or self-care (01) ==
LOC: RAD 09:01
PROVIDERS: PCP Family Medicine; Visit Provider Specialist
DX: I63.9 Cerebral infarction, unspecified (principal)
CPT/HCPCS: 70496; Q9967

== ENCOUNTER 2022-07-23 00:42 | Emergency (ER) | payer MEDICAID, SELFPAY ==
[2022-07-23 00:43] VITALS: BP 189/90; PULSE 72; RESP 20; TEMP 36.6; O2SAT 97; BMI 36.3
--- NOTE | 2022-07-23 01:07 | XRR_ITS ---
PROCEDURE INFORMATION: Exam: XR Right Ribs with PA Chest Exam date and time: 07/23/2022 1:30 AM Age: 77 years old Clinical indication: Injury or trauma; Fall; Chest wall and rib area; Blunt trauma (contusions or hematomas); Prior surgery; Surgery type: Gb; Patient HX: Patient fell last night onto concrete at home. C/O RT upper chestwall/rib pain. ; Additional info: Fall injury TECHNIQUE: Imaging protocol: Radiologic exam of the right ribs with PA chest. Views: 3 views COMPARISON: CR XR chest 1V portable [id number] 05/06/2022 3:43 PM FINDINGS: Lungs: Mild COPD. Pleural spaces: Unremarkable. No pleural effusion. No pneumothorax. Heart/Mediastinum: The heart is large. Vasculature: Vascular calcification. Bones/joints: No displaced or definite rib fracture is identified. Diffuse DJD. XR/XR ribs RT mn 3V w CXR1V [id number] IMPRESSION: No definite or displaced rib fracture. If pain persists, consider CT chest.
--- NOTE | 2022-07-23 01:29 | ED_ITS ---
HPI - Fall General: Chief Complaint: Fall Stated Complaint: Fell Rt side Pain and Arm Time Seen by Provider: 07/23/22 01:29 History of Present Illness: 77-year-old female comes in with right anterior chest wall pain. Patient reports walking with her walker when a slipped out from under her causing her to fall to her right side. Incident occurred this afternoon. Patient has had continued pain and discomfort to the right rib area. No acute distress is noted. Patient wears oxygen routinely due to history of pulmonary embolism. Patient appears nontoxic. Patient appears to mild-moderate pain. Associated symptoms-after fall: Denies chest pain or headache(s) Review of Systems Const: Denies: fever(s) Card: Denies: chest pain Resp: Denies: dyspnea or non-productive cough GI: Denies: vomiting : Denies: difficulty voiding Musc: Reports: other (Right rib pain) Skin/Breast: Denies: rash Neuro: Denies: headache(s) PFSH ED PFSH: Medical History Anticoagulation adequate with anticoagulant therapy Atrial fibrillation Bilateral pulmonary embolism Bronchitis Diabetes Elevated troponin Hypertension Hypokalemia Hypoxia Pulmonary hypertension SVT (supraventricular tachycardia) URI (upper respiratory infection) Surgical History History of appendectomy History of cholecystectomy Family History Mother Myocardial infarct Hypertension Diabetes Sister Hypertension Diabetes Denies family history of Stroke Social History Smoking and tobacco status: never smoked Alcohol intake: never Physical Exam Const: COMMON NORMALS: alert HENMT: COMMON NORMALS: normocephalic HEAD & SCALP: normocephalic THROAT: posterior oropharynx normal Neck/C-Spine: COMMON NORMALS: full ROM CERVICAL SPINE: No Cervical spine tenderness Chest: CHEST: Yes tenderness (Right anterior rib discomfort, no crepitus or flailing) Resp: COMMON NORMALS: clear to auscultation bilaterally AUSCULTATION: clear to auscultation bilaterally Cardio: COMMON NORMALS: regular rate and regular rhythm RATE: regular rate RHYTHM: regular rhythm Back/Pelvis: THORACIC SPINE/UPPER BACK: No thoracic spinal tenderness LUMBAR SPINE/LOWER BACK: No lumbar spinal tenderness Extremity: COMMON NORMALS: normal to inspection Neuro: SENSORIUM/ORIENTATION: Yes alert Skin: COMMON NORMALS: turgor normal GENERAL SKIN EXAM: turgor normal Course Vital Signs: Vital signs: Vital Signs Temperature 97.8 F 07/23/22 00:43 Pulse Rate 70 07/23/22 02:05 Respiratory Rate 16 07/23/22 02:05 Blood Pressure 164/82 07/23/22 02:05 Pulse Oximetry 98 07/23/22 02:05 Oxygen Delivery Me thod Nasal Cannula 07/23/22 02:05 Oxygen Flow Rate 3 07/23/22 01:38 MDM - Fall Medical Decision Making Patient comes in for evaluation of right rib pain. Patient reports her walker slipping on her causing her to fall forward and strike her ribs against her walker. Patient denies any injury to the head. Patient appears nontoxic. Respirations are even lungs are clear throughout. Patient has tenderness to the right anterior rib area. No spinal tenderness is noted on palpation. Differential diagnosis includes but not limited to rib fracture, rib contusion, pneumothorax. Chest x-ray noted no pneumothorax, and no obvious rib fracture. X-ray was reviewed with Dr. Castellanos until final interpretation of rib films can be done by radiology. Reviewed exam and recommendations for treatment and follow- up. Patient and family both reported understanding and agreed to plan. Discharge Plan Discharge Patient Disposition: Home Clinical Impression: Contusion of rib on right side Qualifiers: Encounter type: initial encounter Qualified Code(s): S20.211A - Contusion of right front wall of thorax, initial encounter Condition: Stable Prescriptions: New hydrocodone-acetaminophen 5-325 mg tablet 1 tab PO Q8H PRN (Reason: pain (scale score 7-10)) Qty: 12 0RF No Action trazodone 100 mg tablet 50 mg PO DAILY Qty: 30 3RF Rx Instructions: .05 as needed for sleep aspirin 81 mg tablet,delayed release (DR/EC) 81 mg PO DAILY fluoxetine 40 mg capsule 40 mg PO QAM atorvastatin 40 mg tablet 40 mg PO QPM ascorbic acid (vitamin C) [Vitamin C] 1,000 mg Tablet 2,000 mg PO QAM ferrous sulfate [FeroSul] 325 mg (65 mg iron) tablet 325 mg PO BID metformin 500 mg tablet extended release 24 hr 1,000 mg PO DAILY cholecalciferol (vitamin D3) [Vitamin D3] 25 mcg (1,000 unit) Capsule 4,000 unit PO QAM amlodipine 10 mg tablet 5 mg PO DAILY lisinopril 40 mg tablet 40 mg PO BID carvedilol 25 mg tablet 25 mg PO BID hydrochlorothiazide 25 mg tablet 25 mg PO DAILY melatonin 5 mg Tablet 5 - 10 mg PO DAILY Eliquis 5 mg tablet 5 mg PO BID Qty: 90 2RF Rx Instructions: Take 10 mg po BID for next 7 days and then 5 mg po BID thereafter Discharge Orders: Discharge ED (Routine); Ordered 07/23/22 Ordered By: David Loza Referrals: Eran Henry DO [Primary Care Provider] - Discharge Diet: Usual diet Discharge Activity: Increase activity as tolerated Patient Instructions: Rib Contusion (ED), Opioid Safety, Pain Management Activity Restrictions/Additional Instructions: Use ice or heat to the area for comfort. Splint the ribs to take a deep breath and cough. Drink plenty of water with medication. Follow-up with primary care in 2 to 3 days for recheck. Return to ED for worsening symptoms such as fever greater than 100.4, increasing shortness of breath, or new concerns. 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
[2022-07-23 01:38] VITALS: BP 161/100; PULSE 77; RESP 18; O2SAT 97
[2022-07-23] MEDS: HYDROcodone-acetaminophen 7.5-325 mg Tablet 1 TAB PO (02:04)
[2022-07-23 02:05] VITALS: BP 164/82; PULSE 70; RESP 16; O2SAT 98
[2022-07-23] MEDS: ketorolac 30 mg/mL INJ 15 MG IM (02:57)
[2022-07-23 03:32] VITALS: BP 177/89; RESP 16; O2SAT 98
== END 2022-07-23 03:40 | disposition home or self-care (01) ==
PROVIDERS: Emergency Provider Nurse Practitioner Family; PCP Family Medicine
DX: S20.211A Contusion of right front wall of thorax, initial encounter (principal); Z79.82 Long term (current) use of aspirin; Z79.01 Long term (current) use of anticoagulants; I10 Essential (primary) hypertension; W01.0XXA Fall on same level from slipping, tripping and stumbling without subsequent striking against object, initial encounter
CPT/HCPCS: 71101; 96372; 99284; J1885

== ENCOUNTER 2022-07-24 19:20 | Emergency (ER) | payer MEDICAID, SELFPAY ==
[2022-07-24 19:27] VITALS: BP 167/82; PULSE 88; TEMP 36.8; O2SAT 96; BMI 37.1
--- NOTE | 2022-07-24 19:37 | ED_ITS ---
HPI - Back Pain/Injury General: Chief Complaint: Back Pain/Injury Stated Complaint: Rib and Back Pain Time Seen by Provider: 07/24/22 19:33 History of Present Illness: 77-year-old female comes in today for complaints of persistent right side chest wall pain. Patient was evaluated from a fall 2 days ago on Friday and no signs of fracture were noted on x-rays at that time. Patient has not been able to get comfortable for rest. Patient appears nontoxic. Patient appears in mild to moderate pain. Associated symptoms: Deny fever(s) Review of Systems Const: Denies: fever(s) ENMT: Denies: throat pain Card: Denies: chest pain Resp: Denies: dyspnea Musc: Reports: back pain and other (Right anterior rib pain) Skin/Breast: Denies: rash PFSH ED PFSH: Medical History Anticoagulation adequate with anticoagulant therapy Atrial fibrillation Bilateral pulmonary embolism Bronchitis Diabetes Elevated troponin Hypertension Hypokalemia Hypoxia Pulmonary hypertension SVT (supraventricular tachycardia) URI (upper respiratory infection) Surgical History History of appendectomy History of cholecystectomy Family History Mother Myocardial infarct Hypertension Diabetes Sister Hypertension Diabetes Denies family history of Stroke Social History Smoking and tobacco status: never smoked Alcohol intake: never Physical Exam Const: COMMON NORMALS: alert HENMT: COMMON NORMALS: normocephalic HEAD & SCALP: normocephalic Neck/C-Spine: COMMON NORMALS: full ROM Chest: CHEST: Yes tenderness (Right anterior ribs) Resp: COMMON NORMALS: normal respiratory effort AUSCULTATION: diminished lung sounds (Bilateral bases) Cardio: COMMON NORMALS: regular rate RATE: regular rate Back/Pelvis: THORACIC SPINE/UPPER BACK: No thoracic spinal tenderness LUMBAR SPINE/LOWER BACK: No lumbar spinal tenderness Extremity: NARRATIVE EXTREMITY EXAM: Mild bilateral pedal edema Neuro: SENSORIUM/ORIENTATION: Yes alert Skin: COMMON NORMALS: turgor normal GENERAL SKIN EXAM: turgor normal Course Vital Signs: Vital signs: Vital Signs Temperature 98.3 F 07/24/22 19:27 Pulse Rate 88 07/24/22 19:27 Respiratory Rate 15 07/24/22 19:55 Blood Pressure 167/82 07/24/22 19:27 Pulse Oximetry 96 07/24/22 19:27 Oxygen Delivery Me thod Room Air 07/24/22 19:27 MDM - Back Pain/Injury Medical Decision Making Patient comes in for further evaluation of persistent rib pain and back pain now. Patient appears nontoxic. Patient reports anterior right rib pain. Respirations are even. Vital signs are normal except for some mild elevation in blood pressure. Differential diagnosis includes but not limited to rib fracture, lung contusion, pneumonia, vertebral fracture. CT of the chest noted some mildly displaced fracture of the fourth and fifth ribs. CT of the lumbar spine noted no fractures or other deformity. Reviewed exam with patient recommended treatment for pain and follow-up with primary care. Patient was having poor control of pain with hydrocodone we will go ahead and do a trial of tramadol to see if that would work better for her. Morphine given in the ER she reported no improvement in her pain. Recommended nonpharmacologic modalities including ice and heat which the family reported understanding. Stressed the importance of deep breath and cough and monitoring for fever or increased shortness of breath. Family reported understanding. Labs Radiology Impressions Chest CT 07/24/22 19:38 IMPRESSION: 1. Acute mildly displaced right 4th and 5th rib fractures. 2. Pulmonary nodules measuring up to 7 mm. For patients at low risk (minimal or absent history of smoking and of other known risk factors), recommend CT Chest at 3-6 months, then consider CT Chest at 18-24 months. For patients at high risk (history of smoking or of other known risk factors), recommend CT Chest at 3-6 months, then CT Chest at 18-24 months. (Reference: Ratna) 3. Calcified left thyroid nodules measuring up to 2.0 cm. Ultrasound follow-up is recommended. References: Ratna Hernandez, et al. Guidelines for Management of Incidental Pulmonary Nodules Detected on CT Images: From the Fleischner Society 2017. Radiology. 2017;284(1):228-243. COMMENTS: Consistent with the [employer]'s Incidental Findings Committee white paper (J Am Melvin Radiol 2015): In patients aged 35 years and older with an incidental thyroid nodule equal to or greater than 1.[address], MRI or extrathyroidal US, further evaluation with dedicated thyroid US is recommended for patients with normal life expectancy and without comorbidities. For smaller nodules without suspicious features, no further evaluation or follow up is recommended. Lumbar Spine CT 07/24/22 20:00 IMPRESSION: 1. No acute findings. 2. Chronic L5 pars defects with grade 1 anterolisthesis. 3. Multilevel degenerative changes as described. Discharge Plan Discharge Patient Disposition: Home Clinical Impression: Rib fractures Qualifiers: Encounter type: initial encounter Fracture type: closed Laterality: right Qualified Code(s): S22.41XA - Multiple fractures of ribs, right side, initial encounter for closed fracture Condition: Stable Prescriptions: New tramadol 50 mg tablet 50 mg PO Q6H PRN (Reason: pain) Qty: 20 0RF No Action trazodone 100 mg tablet 50 mg PO DAILY Qty: 30 3RF Rx Instructions: .05 as needed for sleep aspirin 81 mg tablet,delayed release (DR/EC) 81 mg PO DAILY fluoxetine 40 mg capsule 40 mg PO QAM atorvastatin 40 mg tablet 40 mg PO QPM ascorbic acid (vitamin C) [Vitamin C] 1,000 mg Tablet 2,000 mg PO QAM ferrous sulfate [FeroSul] 325 mg (65 mg iron) tablet 325 mg PO BID metformin 500 mg tablet extended release 24 hr 1,000 mg PO DAILY cholecalciferol (vitamin D3) [Vitamin D3] 25 mcg (1,000 unit) Capsule 4,000 unit PO QAM amlodipine 10 mg tablet 5 mg PO DAILY lisinopril 40 mg tablet 40 mg PO BID carvedilol 25 mg tablet 25 mg PO BID hydrochlorothiazide 25 mg tablet 25 mg PO DAILY melatonin 5 mg Tablet 5 - 10 mg PO DAILY Eliquis 5 mg tablet 5 mg PO BID Qty: 90 2RF Rx Instructions: Take 10 mg po BID for next 7 days and then 5 mg po BID thereafter hydrocodone-acetaminophen 5-325 mg tablet 1 tab PO Q8H PRN (Reason: pain (scale score 7-10)) Qty: 12 0RF Discharge Orders: Discharge ED (Routine); Ordered 07/24/22 Ordered By: David Loza Referrals: Eran Henry DO [Primary Care Provider] - Discharge Diet: Usual diet Discharge Activity: Increase activity as tolerated Patient Instructions: Rib Fracture (ED), Opioid Safety Activity Restrictions/Additional Instructions: Continue care for rib fracture. Use ice or heat for further pain relief. Use acetaminophen further further pain relief. Follow-up with primary care for further instructions. Return to ED for new concerns. Coding Level of Care Code ED Prior Authorization Nurse for Sancho Romo
--- NOTE | 2022-07-24 19:38 | CTR_ITS ---
PROCEDURE INFORMATION: Exam: CT Chest Without Contrast; Diagnostic Exam date and time: 07/24/2022 7:56 PM Age: 77 years old Clinical indication: Injury or trauma; Fall; Blunt trauma (contusions or hematomas); Additional info: Fall, concern for rib fracture TECHNIQUE: Imaging protocol: Diagnostic computed tomography of the chest without contrast. Radiation optimization: All CT scans at this facility use at least one of these dose optimization techniques: automated exposure control; mA and/or kV adjustment per patient size (includes targeted exams where dose is matched to clinical indication); or iterative reconstruction. REPORTING DATA: Count of CT and Cardiac NM exams in prior 12 months: This patient has received 4 known CTs and 0 known cardiac nuclear medicine studies in the 12 months prior to the current study. COMPARISON: CT angio chest PE protcl [id number] 05/06/2022 5:12 PM RADIATION DOSE METRICS: Total DLP (mGy-cm): 990.55 FINDINGS: Thyroid: Multiple calcified nodules in the left thyroid lobe, the largest measuring 2.0 cm. Lungs: 7 mm left upper lobe nodule, series 3, image 24. 3 mm left lower lobe nodule, image 26. Scattered mild atelectasis in both lungs. Mild mosaic attenuation, consistent with areas of air trapping. Pleural spaces: Unremarkable. No pneumothorax. No pleural effusion. Heart: The heart size is normal. Coronary arteries: Coronary artery calcifications. Lymph nodes: Calcified mediastinal and left hilar lymph nodes. Vasculature: Unremarkable. No aortic aneurysm. Bones/joints: Old right rib fracture. Degenerative changes of the spine. Mildly displaced acute anterolateral right 4th and 5th rib fractures. Soft tissues: Unremarkable. CT/CT chest [facility] [id number] IMPRESSION: 1. Acute mildly displaced right 4th and 5th rib fractures. 2. Pulmonary nodules measuring up to 7 mm. For patients at low risk (minimal or absent history of smoking and of other known risk factors), recommend CT Chest at 3-6 months, then consider CT Chest at 18-24 months. For patients at high risk (history of smoking or of other known risk factors), recommend CT Chest at 3-6 months, then CT Chest at 18-24 months. (Reference: Ratna) 3. Calcified left thyroid nodules measuring up to 2.0 cm. Ultrasound follow-up is recommended. References: Ratna Hernandez et al. Guidelines for Management of Incidental Pulmonary Nodules Detected on CT Images: From the Fleischner Society 2017. Radiology. 2017;284(1):228-243. COMMENTS: Consistent with the [employer]'s Incidental Findings Committee white paper (J Am Melvin Radiol 2015): In patients aged 35 years and older with an incidental thyroid nodule equal to or greater than 1.[address], MRI or extrathyroidal US, further evaluation with dedicated thyroid US is recommended for patients with normal life expectancy and without comorbidities. For smaller nodules without suspicious features, no further evaluation or follow up is recommended.
[2022-07-24 19:55] VITALS: RESP 15
[2022-07-24] MEDS: morphine 4 mg/mL SDV 1 mL IM (19:55)
--- NOTE | 2022-07-24 20:00 | CTR_ITS ---
PROCEDURE INFORMATION: Exam: CT Lumbar Spine Without Contrast Exam date and time: 07/24/2022 8:10 PM Age: 77 years old Clinical indication: Injury or trauma; Fall; Blunt trauma (contusions or hematomas) TECHNIQUE: Imaging protocol: Computed tomography of the lumbar spine without contrast. Radiation optimization: All CT scans at this facility use at least one of these dose optimization techniques: automated exposure control; mA and/or kV adjustment per patient size (includes targeted exams where dose is matched to clinical indication); or iterative reconstruction. REPORTING DATA: Count of CT and Cardiac NM exams in prior 12 months: This patient has received 4 known CTs and 0 known cardiac nuclear medicine studies in the 12 months prior to the current study. COMPARISON: CT kidney stone [id number] 04/18/2021 5:21 PM RADIATION DOSE METRICS: Total DLP (mGy-cm): 1138.8 FINDINGS: Bones/joints: Mild leftward lumbar curvature. The vertebral body stature is maintained. Chronic bilateral L5 pars fractures with grade 1 anterolisthesis. No acute fracture. The facets are intact hilar with mild degenerative changes. Mild anterior degenerative endplate changes, greatest at L1-L2 and L2-L3. L3 bone island. L1-L2: Trace posterior disc bulge. No foraminal stenosis. Mild central canal stenosis. L2-L3: Trace circumferential disc bulge. Mild central canal stenosis. Moderate right bony foraminal stenosis. No left foraminal stenosis. L3-L4: Mild circumferential disc bulge. Mild central canal stenosis. Mild left and moderate right foraminal stenosis. L4-L5: Mild circumferential disc bulge. Moderate right foraminal stenosis. No left foraminal stenosis. Mild central canal stenosis. L5-S1: Mild posterior disc bulge. Severe right bony foraminal stenosis. No left foraminal stenosis. No central canal stenosis. Stomach and bowel: Diverticulosis of the distal colon. Soft tissues: Lumbar subcutaneous soft tissue edema. CT/CT lumbar spine wo con* [id number] IMPRESSION: 1. No acute findings. 2. Chronic L5 pars defects with grade 1 anterolisthesis. 3. Multilevel degenerative changes as described.
== END 2022-07-24 21:20 | disposition home or self-care (01) ==
PROVIDERS: Emergency Provider Nurse Practitioner Family; PCP Family Medicine
DX: S22.41XA Multiple fractures of ribs, right side, initial encounter for closed fracture (principal); Z79.82 Long term (current) use of aspirin; Z79.01 Long term (current) use of anticoagulants; Z79.84 Long term (current) use of oral hypoglycemic drugs; I10 Essential (primary) hypertension; W19.XXXA Unspecified fall, initial encounter
CPT/HCPCS: 71250; 72131; 96372; 99284; J2270

== ENCOUNTER → 2022-09-18 07:59 | Outpatient (BNVA) | payer MEDICAID, SELFPAY | PROVIDERS: PCP Family Medicine; Visit Provider Specialist | DX: I48.91 Unspecified atrial fibrillation (principal); Z79.01 Long term (current) use of anticoagulants; Z86.73 Personal history of transient ischemic attack (TIA), and cerebral infarction without residual deficits | CPT/HCPCS: 99214 ==

== ENCOUNTER → 2022-09-19 08:57 | Outpatient (BNVA) | payer MEDICAID, SELFPAY | PROVIDERS: PCP Family Medicine; Visit Provider Specialist | DX: M17.0 Bilateral primary osteoarthritis of knee (principal) | CPT/HCPCS: 20610; J1100; J2795; J3301 ==

== ENCOUNTER → 2022-10-03 14:47 | Outpatient (BNVA) | payer MEDICAID, SELFPAY | PROVIDERS: PCP Family Medicine; Visit Provider Internal Medicine Cardiovascular Disease | DX: I48.91 Unspecified atrial fibrillation (principal); I26.99 Other pulmonary embolism without acute cor pulmonale; I27.20 Pulmonary hypertension, unspecified; I10 Essential (primary) hypertension; E78.5 Hyperlipidemia, unspecified; E11.9 Type 2 diabetes mellitus without complications; Z86.73 Personal history of transient ischemic attack (TIA), and cerebral infarction without residual deficits; Z79.01 Long term (current) use of anticoagulants; Z79.82 Long term (current) use of aspirin; Z79.84 Long term (current) use of oral hypoglycemic drugs | CPT/HCPCS: 99214 ==

== ENCOUNTER → 2023-04-17 13:38 | Outpatient (BNVA) | payer MEDICAID, SELFPAY | PROVIDERS: PCP Family Medicine; Visit Provider Internal Medicine Cardiovascular Disease | DX: I48.21 Permanent atrial fibrillation (principal); I10 Essential (primary) hypertension; I26.99 Other pulmonary embolism without acute cor pulmonale; E78.5 Hyperlipidemia, unspecified; I27.20 Pulmonary hypertension, unspecified; E13.9 Other specified diabetes mellitus without complications; Z79.01 Long term (current) use of anticoagulants; Z79.84 Long term (current) use of oral hypoglycemic drugs | CPT/HCPCS: 99214 ==

== ENCOUNTER 2023-05-27 05:02 | Emergency (ER) | payer MEDICAID, SELFPAY ==
[2023-05-27 05:09] VITALS: BP 178/122; PULSE 98; RESP 18; TEMP 36.6; O2SAT 97; BMI 36.3
--- NOTE | 2023-05-27 05:18 | ED_ITS ---
HPI - GI Bleed 2 General: Chief complaint: GI Bleed Stated complaint: Rectal bleeding Time Seen by Provider: 05/27/23 05:04 Source: patient Mode of arrival: ambulatory Limitations: no limitations History of Present Illness: 70-year-old female states she had a hist ory of hemorrhoids states she had some rectal bleeding last week she states she started having bleeding again this morning states its bright red blood she denies any pain denies any abdominal pain denies any dark tarry stools she has had no vomiting denies any weakness she is history of A-fib all hypertension she is hypertensive here 175/125 but has not taken her morning meds. She is on Eliquis as well. Associated symptoms: Denies abdominal pain, chills, fever(s), headache(s), nausea, rash or vomiting Review of Systems 2 Const: Denies: fever(s) or chills ENMT: Denies: throat pain or dental pain Card: Denies: chest pain Resp: Denies: dyspnea GI: Reports: hematochezia; Denies: abdominal pain, nausea, vomiting or diarrhea Musc: Denies: neck pain or back pain Skin/Breast: Denies: rash Neuro: Denies: headache(s) PFSH ED 2 PFSH: Medical History Anticoagulation adequate with anticoagulant therapy Atrial fibrillation Elevated troponin Hypokalemia Pulmonary hypertension Bilateral pulmonary embolism Hypoxia Bronchitis URI (upper respiratory infection) SVT (supraventricular tachycardia) Diabetes Hypertension Surgical History History of appendectomy History of cholecystectomy Family History Mother Myocardial infarct Hypertension Diabetes Sister Hypertension Diabetes Denies family history of Stroke Social History Smoking and tobacco/nicotine status: never used tobacco/nicotine Alcohol intake: never Substance/Drug Use: never Physical Exam 2 Const: COMMON NORMALS: no acute distress, patient oriented x3 and healthy appearing HENMT: COMMON NORMALS: normocephalic and atraumatic HEAD & SCALP: n ormocephalic and atraumatic Neck/C-Spine: COMMON NORMALS: full ROM and supple Chest: COMMONS NORMALS: normal inspection of the chest Resp: COMMON NORMALS: normal respiratory effort Cardio: RATE: tachycardic RHYTHM: abnormal rhythm irregularly irregular GI: COMMON NORMALS: Normal to inspection, nondistended, normoactive bowel sounds present, Soft to palpation, non-tender and no masses PALPATION: Yes Soft to palpation OTHER: Rectal exam showed multiple hemorrhoids with a small amount of bright red blood Extremity: COMMON NORMALS: normal to inspection and full ROM Neuro: COMMON NORMALS: patient oriented x3, moves all extremities and no focal motor deficits Psych: COMMON NORMALS: mental status grossly normal, Normal thought process present and cooperative THOUGHT PROCESS: Normal thought process present Skin: COMMON NORMALS: no rashes or lesions noted and no wounds GENERAL SKIN EXAM: no rashes or lesions noted Course 2 Vital Signs: Vital signs: Vital Signs Temperature 97.9 F 05/27/23 05:09 Pulse Rate 77 05/27/23 05:42 Respiratory Rate 18 05/27/23 05:42 Blood Pressure 152/73 05/27/23 05:42 Pulse Oximetry 95 05/27/23 05:42 Oxygen Delivery Me thod Room Air 05/27/23 05:09 MDM - GI Bleed Medical Decision Making Patient presents here with lower GI bleed on rectal exam she does have multiple large hemorrhoids no signs of active bleeding at this time her hemoglobin here is 11 which is higher than her typical we will get her follow-up with surgery did prescribe her Proctofoam and she is return if worsening Medical Records I reviewed the patient's medical records. Lab Data I reviewed the patient's lab results. 05/27/23 05:23 05/27/23 05:23 Laboratory Results WBC 7.39 10^3/uL (3.29-11.43) 05/27/23 05:23 RBC 3.80 10^6/uL (3.85-5.65) L 05/27/23 05:23 Hgb 11.40 g/dL (11.27-16.99) 05/27/23 05:23 Hct 34.9 % (36-47) L 05/27/23 05:23 MCV 91.8 fl (85-98) 05/27/23 05:23 MCH 30.0 pg (27-33) 05/27/23 05:23 MCHC 32.7 g/dL (30-55) 05/27/23 05:23 RDW 13.2 % (12.1-15.1) 05/27/23 05:23 Plt Count 256 10^3/cmm (157-399) 05/27/23 05:23 MPV 9.6 fL (7.4-10.4) 05/27/23 05:23 Neut % (Auto) 69.0 % 05/27/23 05:23 Lymph % (Auto) 18.1 % 05/27/23 05:23 Garland % (Auto) 10.0 % 05/27/23 05:23 Eos % (Auto) 2.3 % 05/27/23 05:23 Baso % (Auto) 0.5 % 05/27/23 05:23 Neut # (Auto) 5.09 10^3/uL (1.8-7.7) 05/27/23 05:23 Lymph # (Auto) 1.3 10^3/uL (0.8-4.8) 05/27/23 05:23 Garland # (Auto) 0.7 10^3/uL (0.2-0.9) 05/27/23 05:23 Eos # (Auto) 0.2 10^3/uL (0.0-0.8) 05/27/23 05:23 Baso # (Auto) 0.0 10^3/uL (0.0-0.1) 05/27/23 05:23 Nucleated RBC % (auto) 0 % 05/27/23 05:23 Nucleated RBCs # 0.0 /100WBC 05/27/23 05:23 PT 13.60 SECONDS (12.1-14.9) 05/27/23 05:23 INR 1.01 (0.8-1.2) 05/27/23 05:23 Sodium 137 mmol/L (136-145) 05/27/23 05:23 Potassium 3.8 mmol/L (3.5-5.1) 05/27/23 05:23 Chloride 99 mmol/L (98-107) 05/27/23 05:23 Carbon Dioxide 26 mmol/L (22-29) 05/27/23 05:23 Anion Gap 15.8 (5-19) 05/27/23 05:23 BUN 24 mg/dL (8-23) H 05/27/23 05:23 Creatinine 1.0 mg/dL (0.5-0.9) H 05/27/23 05:23 GFR Calculation Not Reportable 05/27/23 05:23 Glucose 182 mg/dL (65-115) H 05/27/23 05:23 Calculated Osmolality 293 mOsm/kg (285-295) 05/27/23 05:23 Calcium 9.0 mg/dL (8.5-10.5) 05/27/23 05:23 Total Bilirubin 1.2 mg/dL (0.15-1.2) 05/27/23 05:23 AST 13 U/L (0-32) 05/27/23 05:23 ALT 15 U/L (0-33) 05/27/23 05:23 Alkaline Phosphatase 132 U/L (35-105) H 05/27/23 05:23 Total Protein 6.9 g/dL (6.6-8.7) 05/27/23 05:23 Albumin 3.8 g/dL (3.5-5.2) 05/27/23 05:23 Globulin 3.1 g/dL (1.3-4.6) 05/27/23 05:23 No radiology studies performed this visit Discharge Plan Discharge Patient Disposition: Home Clinical Impression: Lower gastrointestinal hemorrhage, Hemorrhoids Condition: Stable Prescriptions: New Proctofoam 1 % foam [address] BID Qty: 15 0RF No Action aspirin 81 mg tablet,delayed release (DR/EC) 81 mg PO DAILY metoprolol tartrate 50 mg tablet 50 mg PO DAILY hydralazine 50 mg tablet 50 mg PO TID Hold Instructions: Doctor's Order chlorthalidone 25 mg tablet 25 mg PO DAILY Qty: 90 2RF Eliquis 5 mg tablet 5 mg PO BID Qty: 90 3RF fluoxetine 40 mg capsule 40 mg PO QAM atorvastatin 40 mg tablet 40 mg PO QPM ferrous sulfate [FeroSul] 325 mg (65 mg iron) tablet 325 mg PO BID metformin 500 mg tablet extended release 24 hr 1,000 mg PO DAILY cholecalciferol (vitamin D3) [Vitamin D3] 25 mcg (1,000 unit) Capsule 4,000 unit PO QAM amlodipine 10 mg tablet 5 mg PO DAILY lisinopril 40 mg tablet 40 mg PO BID carvedilol 25 mg tablet 25 mg PO BID melatonin 5 mg Tablet 5 - 10 mg PO DAILY Discharge Orders: Discharge ED (Routine); Ordered 05/27/23 Ordered By: Erick Castellanos Referrals: Eran Henry DO [Primary Care Provider] - Enoch Maxwell DO [Physician] - 4-7 days Discharge Diet: Advance as tolerated Discharge Activity: Resume usual activity Patient Instructions: Hemorrhoids (ED) Coding Level of Care Code ED 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
[2023-05-27] MEDS: labetalol 5 mg/mL SDV 20mL 10 MG IVP (05:26)
[2023-05-27 05:28] LABS: Basophils % 0.5 %; Eosinophils # 0.2 10^3/uL (0.0-0.8); Eosinophils % 2.3 %; Hematocrit 34.9 % (36-47); Lymphocytes # 1.3 10^3/uL (0.8-4.8); Lymphocytes % 18.1 %; Mean Corpuscular HGB Conc 32.7 g/dL (30-55); Mean Corpuscular Volume 91.8 fl (85-98); Mean Platelet Volume 9.6 fL (7.4-10.4); Monocytes # 0.7 10^3/uL (0.2-0.9); Neutrophils # 5.09 10^3/uL (1.8-7.7); Nucleated Red Blood Cells % 0 %; Platelet Count 256 10^3/cmm (157-399); Red Cell Distribution Width 13.2 % (12.1-15.1); White Blood Count 7.39 10^3/uL (3.29-11.43)
[2023-05-27 05:42] VITALS: BP 152/73; PULSE 77; RESP 18; O2SAT 95
[2023-05-27 05:43] LABS: INR 1.01 (0.8-1.2)
[2023-05-27 05:48] LABS: Alanine Aminotransferase 15 U/L (0-33); Albumin Level 3.8 g/dL (3.5-5.2); Alkaline Phosphatase 132 U/L (35-105); Anion Gap 15.8 (5-19); Aspartate Amino Transferase 13 U/L (0-32); Blood Urea Nitrogen 24 mg/dL (8-23); Carbon Dioxide 26 mmol/L (22-29); Chloride 99 mmol/L (98-107); Globulin 3.1 g/dL (1.3-4.6); Glucose 182 mg/dL (65-115); Osmolality Calculated 293 mOsm/kg (285-295); Potassium 3.8 mmol/L (3.5-5.1); Sodium 137 mmol/L (136-145); Total Bilirubin 1.2 mg/dL (0.15-1.2); Total Protein 6.9 g/dL (6.6-8.7)
--- NOTE | 2023-05-29 09:33 | DCPLANNER ---
Message was sent to general surgery on 05/29/23 at 0935. Clinic to contact patient for appt.
== END 2023-05-27 06:02 | disposition home or self-care (01) ==
PROVIDERS: Emergency Provider Emergency Medicine; PCP Family Medicine
DX: K62.5 Hemorrhage of anus and rectum (principal); K64.9 Unspecified hemorrhoids; Z79.82 Long term (current) use of aspirin; Z79.01 Long term (current) use of anticoagulants; Z79.84 Long term (current) use of oral hypoglycemic drugs; E11.9 Type 2 diabetes mellitus without complications; I10 Essential (primary) hypertension
CPT/HCPCS: 80053; 85025; 85610; 96374; 99284; J3490

== ENCOUNTER → 2023-05-29 13:57 | Outpatient (BNVA) | payer MEDICAID, SELFPAY | PROVIDERS: PCP Family Medicine; Visit Provider Surgery | DX: K92.2 Gastrointestinal hemorrhage, unspecified (principal); K64.9 Unspecified hemorrhoids; Z79.899 Other long term (current) drug therapy | CPT/HCPCS: 99204 ==

== ENCOUNTER 2023-06-18 06:17 | Day surgery (SDC) | payer MEDICAID, SELFPAY ==
[2023-06-18 06:34] VITALS: BP 136/75; PULSE 88; RESP 16; TEMP 36.2; O2SAT 96; BMI 36.3
[2023-06-18] MEDS: sodium chloride 0.9% 1,000 ML 30 ML IV (06:39)
[2023-06-18 06:42] LABS: Glucose Point of Care 176 mg/dL (70-110)
--- NOTE | 2023-06-18 06:48 | P.ANESASSM_ITS ---
Pre-Anesthetic Assessment Height/Weight: Height 1.68 m Weight 102.058 kg Temp Pulse Resp BP Pulse Ox O2 Del Method 97.2 F L 88 16 136/75 96 Room Air 06/18/23 06:34 06/18/23 06:34 06/18/23 06:34 06/18/23 06:34 06/18/23 06:34 06/18/23 06:34 Preop Diagnosis: GI Bleed Operation Date: 06/18/23 07:30 Proposed Procedures p [id number] egd [id number] colon G0105 screen colon H risk K92.2,K64.9(Not Applicable) - DO seema Quintero Colonoscopy(Not Applicable) - Enoch Maxwell DO Familial anesthetic complications: none Was Beta Christian taken within 24 hours: Yes Last intake: Intake Last Liquid Date 06/17/23 Last Liquid Time 21:00 Last Solid Date 06/16/23 Last Solid Time 18:00 Social No alcohol and No tobacco Exam alert, oriented x 3 and clear to auscultation bilaterally Airway Submandibular: within normal limits Cervical ROM: within normal limits Mallampati: Class II Dentition: partials Pulmonary None reported pulmonary HTN 95% on RA states she has home O2 doesnt use prescribed post PE 04/2022. 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 Chronic Renal Insufficiency Hepatic None reported GI None reported Metabolic Diabetes Mellitus (none insulin dependent), Hyperlipidemia and Morbid Obesity Musc/skel Weakness (walker use) Neuropsych Cerebrovascular Accident and Neuropathy (BUE) Anesthetic Plan ASA status: 3 Anesthesia: MAC Medications/Allergies Home Medications Medication Instructions Recorded Confirmed Last Taken Type atorvastatin 40 mg tablet 40 mg PO QPM 08/14/21 06/18/23 06/18/23 History cholecalciferol (vitamin D3) 25 4,000 unit PO QAM 08/14/21 06/18/23 06/18/23 History mcg (1,000 unit) capsule (Vitamin D3) ferrous sulfate 325 mg (65 mg 325 mg PO BID 08/14/21 06/18/23 06/18/23 History iron) tablet (FeroSul) fluoxetine 40 mg capsule 40 mg PO QAM 08/14/21 06/18/23 06/18/23 History metformin 500 mg tablet,extended 1,000 mg PO BIDWM 08/14/21 06/18/23 06/16/23 History release 24 hr carvedilol 25 mg tablet 25 mg PO BID 11/07/21 06/18/23 06/18/23 History lisinopril 40 mg tablet 40 mg PO BID 11/07/21 06/18/23 06/18/23 History amlodipine 10 mg tablet 5 mg PO DAILY 05/06/22 06/18/23 06/18/23 History aspirin 81 mg tablet,delayed 81 mg PO DAILY 05/06/22 06/18/23 06/16/23 History release melatonin 5 mg tablet 5 - 10 mg PO BEDTIME 05/06/22 06/18/23 06/16/23 History metoprolol tartrate 50 mg tablet 50 mg PO DAILY 09/19/22 06/18/23 06/18/23 H istory chlorthalidone 25 mg tablet 25 mg PO DAILY #90 tabs 11/05/22 06/18/23 06/18/23 Rx apixaban 5 mg tablet (Eliquis) 5 mg PO BID #90 tabs 02/28/23 06/18/23 2 Weeks Ago Rx ~06/02/23 pramoxine 1 % topical foam 1 applic OK BID #15 grams 05/27/23 06/18/23 06/18/23 Rx (Proctofoam) Allergies Allergy/AdvReac Type Severity Reaction Status Date / Time Penicillins Allergy itching Verified 06/18/23 06:30 and swelling cefaclor [From [facility]] AdvReac ALGY-Rash Verified 06/18/23 06:30 Current Medications Generic Name Dose Route Start Last Admin Trade Name Freq PRN Reason Stop Dose Admin Sodium Chloride 1,000 mls @ 30 mls/hr 06/18/23 06:30 06/18/23 06:39 Sodium Chloride 0.9% IV 06/19/23 06:29 30 mls/hr .Q24H ESPERANZA Administration PFSH Anesthesia Medical History Anticoagulation adequate with anticoagulant therapy Atrial fibrillation Elevated troponin Hypokalemia Pulmonary hypertension Bilateral pulmonary embolism Hypoxia Bronchitis URI (upper respiratory infection) SVT (supraventricular tachycardia) Diabetes Hypertension Surgical History History of appendectomy History of cholecystectomy Family History Mother Myocardial infarct Hypertension Diabetes Sister Hypertension Diabetes Denies family history of Stroke Social History Smoking and tobacco/nicotine status: never used tobacco/nicotine Alcohol intake: never Substance/Drug Use: never Data Anesthesia Cardiac Studies: Echocardiogram 05/06/22 Cardiac Event Monitor 06/24/22
--- NOTE | 2023-06-18 07:25 | W.PM.OPSUD ---
Surgery/Procedure H&P Update DATE OF PROCEDURE: June 18, 2023 DATE H&P PERFORMED: 05/29/23 H&P UPDATE INFORMATION: I have reviewed H&P completed within last 30 days, I have examined patient prior to procedure and No changes to prior documentation PREOP DIAGNOSIS: GI Bleed PLANNED PROCEDURE: Operation Date: 06/18/23 07:30 Proposed Procedures p [id number] egd [id number] colon G0105 screen colon H risk K92.2,K64.9(Not Applicable) - DO seema Quintero Colonoscopy(Not Applicable) - Enoch Maxwell DO
[2023-06-18 07:52] VITALS: BP 112/59; PULSE 70; RESP 18; TEMP 36.1; O2SAT 91
[2023-06-18 08:12] VITALS: BP 127/53; PULSE 67; RESP 18; O2SAT 99
--- NOTE | 2023-06-18 08:25 | ANE.PACU2 ---
Inpatient post-anesthesia follow up: Airway intact: Yes Vital signs: Temperature 97 F Pulse Rate 67 Respiratory Rate 18 Blood Pressure 127/53 Pulse Oximetry 99 Oxygen Delivery Me thod Room Air Oxygen Flow Rate Fraction of Inspir ed Oxygen Hydration adequate: Yes Nausea and vomiting: No Pain level: 1 Mental status: Baseline
== END 2023-06-18 08:26 | disposition home or self-care (01) ==
PROVIDERS: PCP Family Medicine; Visit Provider Surgery
PROC: 0DJ08ZZ Inspection of Upper Intestinal Tract, Via Natural or Artificial Opening Endoscopic (ICD-10-PCS; CPT 43235; principal; 2023-06-18 07:30)
PROC: 0DJD8ZZ Inspection of Lower Intestinal Tract, Via Natural or Artificial Opening Endoscopic (ICD-10-PCS; CPT 45378; 2023-06-18 07:30)
DX: K64.3 Fourth degree hemorrhoids (principal); K57.30 Diverticulosis of large intestine without perforation or abscess without bleeding; D12.5 Benign neoplasm of sigmoid colon; K22.2 Esophageal obstruction; K44.9 Diaphragmatic hernia without obstruction or gangrene; K29.50 Unspecified chronic gastritis without bleeding; I48.91 Unspecified atrial fibrillation; E78.5 Hyperlipidemia, unspecified; E66.01 Morbid (severe) obesity due to excess calories; Z68.36 Body mass index [BMI] 36.0-36.9, adult; Z86.73 Personal history of transient ischemic attack (TIA), and cerebral infarction without residual deficits; Z79.82 Long term (current) use of aspirin; E11.9 Type 2 diabetes mellitus without complications; I10 Essential (primary) hypertension
CPT/HCPCS: 36416; 43239; 45385; 82962; 88305; J2704; J7030

== ENCOUNTER → 2023-07-04 09:19 | Outpatient (BNVA) | payer MEDICAID, SELFPAY | PROVIDERS: PCP Family Medicine; Visit Provider Surgery | DX: Z09 Encounter for follow-up examination after completed treatment for conditions other than malignant neoplasm (principal); K64.3 Fourth degree hemorrhoids; K29.70 Gastritis, unspecified, without bleeding; D37.4 Neoplasm of uncertain behavior of colon | CPT/HCPCS: 99214 ==

== ENCOUNTER 2023-07-29 07:25 | Day surgery (SDC) | payer MEDICAID, SELFPAY ==
[2023-07-29] VITALS (12 sets, daily range): BP systolic 95–134; BP diastolic 22–87; PULSE 63–83; RESP 12–22; TEMP 36.1–36.4; O2SAT 90–97; BMI 36.3
[2023-07-29 08:08] LABS: Glucose Point of Care 179 mg/dL (70-110)
[2023-07-29] MEDS: sodium chloride 0.9% 1,000 ML 30 ML IV (08:20)
--- NOTE | 2023-07-29 08:42 | ANES.PREANE2 ---
Pre-Anesthetic Assessment Height/Weight: Height 1.68 m Weight 102.283 kg Temp Pulse Resp BP Pulse Ox O2 Del Method 97.4 F L 75 16 133/87 94 Room Air 07/29/23 07:41 07/29/23 07:41 07/29/23 07:41 07/29/23 07:41 07/29/23 07:41 07/29/23 07:41 Operation Date: 07/29/23 09:10 Proposed Procedures p Hemorrhoidectomy(Not Applicable) - Enoch Maxwell DO Familial anesthetic complications: none Was Beta Christian taken within 24 hours: N/A Was Clonidine taken within 24 hours: N/A Last intake: Intake Last Liquid Date 07/28/23 Last Liquid Time 19:30 Last Solid Date 07/28/23 Last Solid Time 19:30 Social No alcohol and No tobacco Exam alert, oriented x 3, clear to auscultation bilaterally and regular rate & rhythm Airway Mallampati: Class III Dentition: partials CV/HEM Atrial Fibrillation and Hypertension Metabolic Diabetes Mellitus, Hyperlipidemia and Morbid Obesity Neuropsych Cerebrovascular Accident Anesthetic Plan ASA status: 3 Anesthesia: General Medications/Allergies Home Medications Medication Instructions Recorded Confirmed Last Taken Type atorvastatin 40 mg tablet 40 mg PO QPM 08/14/21 07/28/23 07/27/23 History cholecalciferol (vitamin D3) 25 4,000 unit PO QAM 08/14/21 07/28/23 07/28/23 History mcg (1,000 unit) capsule (Vitamin D3) ferrous sulfate 325 mg (65 mg 325 mg PO BID 08/14/21 07/28/23 07/28/23 History iron) tablet (FeroSul) fluoxetine 40 mg capsule 40 mg PO QAM 08/14/21 07/28/23 07/28/23 History metformin 500 mg tablet,extended 1,000 mg PO BIDWM 08/14/21 07/28/23 07/28/23 History release 24 hr carvedilol 25 mg tablet 25 mg PO BID 11/07/21 07/29/23 07/29/23 History lisinopril 40 mg tablet 40 mg PO BID 11/07/21 07/28/23 07/28/23 History amlodipine 10 mg tablet 5 mg PO DAILY 05/06/22 07/28/23 07/28/23 History aspirin 81 mg tablet,delayed 81 mg PO DAILY 05/06/22 07/28/23 07/28/23 History release melatonin 5 mg tablet 5 - 10 mg PO BEDTIME 05/06/22 07/28/23 07/27/23 History chlorthalidone 25 mg tablet 25 mg PO DAILY #90 tabs 11/05/22 07/28/23 07/28/23 Rx apixaban 5 mg tablet (Eliquis) 5 mg PO BID #90 tabs 02/28/23 07/28/23 07/26/23 Rx furosemide 20 mg tablet (Lasix) 20 mg PO DAILY 07/28/23 07/28/23 07/28/23 History magnesium 500 mg tablet 500 mg PO DAILY 07/28/23 07/28/23 07/28/23 History Allergies Allergy/AdvReac Type Severity Reaction Status Date / Time Penicillins Allergy itching Verified 07/28/23 14:38 and swelling cefaclor [From Ceclor] AdvReac ALGY-Rash Verified 07/28/23 14:38 Current Medications Generic Name Dose Route Start Last Admin Trade Name Freq PRN Reason Stop Dose Admin Sodium Chloride 1,000 mls @ 30 mls/hr 07/29/23 07:45 07/29/23 08:20 Sodium Chloride 0.9% IV 07/30/23 07:44 30 mls/hr .Q24H ESPERANZA Administration PFSH Anesthesia Medical History Anticoagulation adequate with anticoagulant therapy Atrial fibrillation Elevated troponin Hypokalemia Pulmonary hypertension Bilateral pulmonary embolism Hypoxia Bronchitis URI (upper respiratory infection) SVT (supraventricular tachycardia) Diabetes Hypertension Surgical History History of appendectomy History of cholecystectomy Family History Mother Myocardial infarct Hypertension Diabetes Sister Hypertension Diabetes Denies family history of Stroke Social History Smoking and tobacco/nicotine status: never used tobacco/nicotine Alcohol intake: never Substance/Drug Use: never Data Anesthesia Cardiac Studies: Echocardiogram 05/06/22 Cardiac Event Monitor 06/24/22
--- NOTE | 2023-07-29 08:57 | W.PM.OPSUD ---
Surgery/Procedure H&P Update DATE OF PROCEDURE: July 29, 2023 DATE H&P PERFORMED: 07/04/23 H&P UPDATE INFORMATION: I have reviewed H&P completed within last 30 days, I have examined patient prior to procedure and No changes to prior documentation PLANNED PROCEDURE: Operation Date: 07/29/23 09:10 Proposed Procedures p Hemorrhoidectomy(Not Applicable) - Enoch Maxwell DO
[2023-07-29] MEDS: clindamycin 600 MG/50 ML PREMIX 200 MG IV (09:37)
[2023-07-29] MEDS: thrombin 5,000 unit SDV 5000 UNIT XX (10:18)
[2023-07-29] MEDS: BUPivacaine liposome 13.3 mg/mL SDV 10 mL 133 MG INJECTION (11:00)
[2023-07-29] MEDS: BUPivacaine 0.5% INJ 10 mL INJECTION (11:00)
--- NOTE | 2023-07-29 11:03 | PM.OP ---
Operative Report Date of procedure: July 29, 2023 Pre-op diagnosis: Grade 4 internal hemorrhoids Post-op diagnosis: same Procedure done: 2 pillar hemorrhoidectomy Implants: Thrombin Gelfoam Specimens removed/disposition: Left lateral and right posterior hemorrhoidal pillars Surgeon: Enoch Maxwell DO Anesthesia: General and Local Estimated blood loss (mL): 5 Complications: None apparent Brief History: This is a very pleasant 78-year-old female who was found to have grade 4 internal hemorrhoids with ulceration on colonoscopy. Hemorrhoidectomy was indicated. The risk benefits were explained and documented. Procedure: Patient was well in the operative room and general endotracheal ovation was achieved by the department anesthesia. He was then placed into the prone jackknife position. The anus was inspected prepped and draped in usual sterile fashion. A timeout was performed. All present were in agreement. Retractor was used to examine the anus and she had very large and ulcerated grade 4 hemorrhoids all 3 pillars. The largest pillar was the left lateral. Due to there being very large hemorrhoids at all 3 pillars. Only the 2 largest pillars were taken, the left lateral and the right posterior. The exterior most edge of the hemorrhoid was slightly ligated with electrocautery. The harmonic scalpel was then used to excise both hemorrhoidal pillars. There was minimal bleeding. Anoderm was then approximated to the skin with 3-0 chromic in an interrupted fashion.Thrombin-soaked Gelfoam was then placed into the anus. Sterile bandage was applied. Patient tolerated procedure well.
--- NOTE | 2023-07-29 12:35 | SUR.PHASEII ---
BLOOD GLUCOSE CHECKED. 179mg/dL. FAMILY AT BEDSIDE. DISCHARGE INSTRUCTIONS REVIEWED WITH FAMILY.
[2023-07-29 12:36] LABS: Glucose Point of Care 179 mg/dL (70-110)
--- NOTE | 2023-07-29 13:40 | ANE.PACU2 ---
Inpatient post-anesthesia follow up: Airway intact: Yes Vital signs: Temperature 97.5 F Pulse Rate 69 Respiratory Rate 16 Blood Pressure 110/60 Pulse Oximetry 96 Oxygen Delivery Me thod Room Air Oxygen Flow Rate 8 Fraction of Inspir ed Oxygen Hydration adequate: Yes Nausea and vomiting: No Pain level: 1 Mental status: Baseline
== END 2023-07-29 13:40 | disposition home or self-care (01) ==
PROVIDERS: PCP Family Medicine; Visit Provider Surgery
PROC: (CPT 46260; principal; 2023-07-29 09:10)
DX: K64.3 Fourth degree hemorrhoids (principal); I48.91 Unspecified atrial fibrillation; I10 Essential (primary) hypertension; E11.9 Type 2 diabetes mellitus without complications; E78.5 Hyperlipidemia, unspecified; E66.01 Morbid (severe) obesity due to excess calories; Z68.36 Body mass index [BMI] 36.0-36.9, adult; Z86.73 Personal history of transient ischemic attack (TIA), and cerebral infarction without residual deficits; Z79.82 Long term (current) use of aspirin; Z79.84 Long term (current) use of oral hypoglycemic drugs
CPT/HCPCS: 46260; 36416; 82962; 88304; C9290; J0131; J1100; J2405; J2704; J2710; J3010; J3490; J7030

== ENCOUNTER 2023-08-16 22:08 | Emergency (ER) | payer MEDICAID, SELFPAY ==
[2023-08-16 22:36] VITALS: BP 144/75; PULSE 71; RESP 15; TEMP 36.6; O2SAT 96; BMI 36.3
== END 2023-08-16 23:40 | disposition left against medical advice (07) ==
LOC: ER 22:10
PROVIDERS: Emergency Provider Family Medicine; PCP Family Medicine
DX: Z53.21 Procedure and treatment not carried out due to patient leaving prior to being seen by health care provider (principal)

== ENCOUNTER → 2023-08-18 10:34 | Outpatient (BNVA) | payer MEDICAID, SELFPAY | PROVIDERS: PCP Family Medicine; Visit Provider Surgery | DX: K64.3 Fourth degree hemorrhoids (principal) | CPT/HCPCS: 99214 ==

== ENCOUNTER 2023-09-18 15:41 | Outpatient (CLI) | payer MEDICAID, SELFPAY ==
--- NOTE | 2023-09-18 15:46 | XRR_ITS ---
PROCEDURE INFORMATION: Exam: XR Lumbosacral Spine Exam date and time: 09/18/2023 3:58 PM Age: 78 years old Clinical indication: Low back pain; Additional info: Lumbar pain TECHNIQUE: Imaging protocol: Radiologic exam of the lumbosacral spine. Views: 2 or 3 views. COMPARISON: CT kidney stone [id number] 04/18/2021 5:21 PM FINDINGS: Bones/joints: Mild multilevel degenerative changes of the spine, as manifested by multilevel anterior osteophytes and multilevel decrease in intervertebral disc space. The facet joints demonstrate mild degenerative hypertrophy and sclerosis. The spinal canal is patent. No acute fracture, dislocation, or aggressive osseous lesion. There are mild degenerative changes of the sacroiliac joints. Soft tissues: Unremarkable. XR/XR lumbar spine 2-3V* [id number] IMPRESSION: No acute findings.
== END 2023-09-18 15:42 | disposition home or self-care (01) ==
LOC: RAD 15:44
PROVIDERS: PCP Family Medicine; Visit Provider Family Medicine
DX: M25.78 Osteophyte, vertebrae (principal); M54.50 Low back pain, unspecified
CPT/HCPCS: 72100

== ENCOUNTER 2023-09-26 13:12 | Emergency (ER) | payer MEDICAID, SELFPAY ==
--- NOTE | 2023-09-26 13:24 | ECG_ITS ---
[facility] Test Date: 2023-09-26 Pat Name: Tresa Abrams Department: Room: Gender: Female Clearing Inspector: : 1945 Requested By: Yong Celeste Order Number: [id number] Mitchell MD: Gigi Beaver M.D. Measurements Intervals Shannon Rate: 73 P: 0 WA: 0 QRS: -8 QRSD: 90 T: 47 QT: 398 QTc: 439 Interpretive Statements ATRIAL FIBRILLATION LOW QRS VOLTAGE [QRS DEFLECTION < 0.5/1.0 mV IN LIMB/CHEST LEADS] POSSIBLE ANTERIOR MYOCARDIAL INFARCTION , PROBABLY OLD [30 ms Q WAVE IN V3/V4, OR R < 0.2 mV IN V4] Compared to ECG 05/07/2022 06:39:17 Low QRS voltage now present Atrial flutter no longer present Myocardial infarct finding still present Electronically Signed On 09-26-2023 13:45:08 CDT by Gigi Beaver M.D. [email or web address]
[2023-09-26 13:30] VITALS: BP 134/84; PULSE 76; RESP 18; TEMP 37.1; O2SAT 97
--- NOTE | 2023-09-26 15:01 | XR_ITS ---
WS: [id number] Exam: XR chest 1V portable [id number] Date/Time of Exam: 09/26/2023 3:06 PM Reason For Exam: chest pain Comparison 07/23/2022. The lungs are clear and fully inflated. Cardiomediastinal silhouette is unremarkable for technique. N o pleural effusions. Regional bony structures appear normal. XR/XR chest 1V portable [id number] IMPRESSION: 1. Negative chest.
--- NOTE | 2023-09-26 15:18 | ED_ITS ---
Documented by User: Yong Chisholm DO 09/26/23 18:18 HPI - Arrhythmia/Palpitations 2 General: Chief Complaint: Arrhythmia/Palpitations Stated Complaint: elevated bp, feels like passing out Time Seen by Provider: 09/26/23 15:12 Source: patient Mode of arrival: ambulatory History of Present Illness: 78-year-old female presents emergency ro om with generalized vague complaint of not feeling well. She has an essentially azar negative review of systems. She has not changed her missed any of her medications lately there is been no adjustments to her dosages. She has not had any other specific symptoms. Not been feeling well for the last several days. No fever. No productive cough. Onset (ago): day(s) Associated symptoms: Deny anxiety, cough, diaphoresis, muscle cramps, nausea, paresthesias, pre-syncope, sense of impending doom, short of breath, syncope or vomiting Review of Systems 2 Const: Denies: fever(s), chills or diaphoresis Card: Denies: chest pain, syncope or pre-syncope Resp: Denies: dyspnea GI: Denies: abdominal pain, nausea or vomiting : Denies: dysuria, urinary frequency or urinary urgency Musc: Denies: neck pain, back pain or muscle cramps Skin/Breast: Denies: rash Psych: Denies: anxiety PFSH ED 2 PFSH: Medical History Anticoagulation adequate with anticoagulant therapy Atrial fibrillation Elevated troponin Hypokalemia Pulmonary hypertension Bilateral pulmonary embolism Hypoxia Bronchitis URI (upper respiratory infection) SVT (supraventricular tachycardia) Diabetes Hypertension Surgical History Hx of hemorrhoidectomy 07/29/23 Dr Maxwell History of appendectomy History of cholecystectomy Family History Mother Myocardial infarct Hypertension Diabetes Sister Hypertension Diabetes Denies family history of Stroke Social History Smoking and tobacco/nicotine status: never used tobacco/nicotine Alcohol intake: never Substance/Drug Use: never Physical Exam 2 Const: GENERAL APPEARANCE: cooperative and comfortable O RIENTATION/CONSCIOUSNESS: Yes awake, Yes oriented to person, Yes oriented to place and Yes oriented to time HENMT: COMMON NORMALS: normocephalic, atraumatic and hearing grossly normal bilaterally HEAD & SCALP: normocephalic and atraumatic Resp: COMMON NORMALS: normal respiratory effort, No retractions, No use of accessory muscles and clear to auscultation bilaterally AUSCULTATION: clear to auscultation bilaterally Cardio: COMMON NORMALS: No murmurs present (Cardio) RATE: tachycardic R HYTHM: abnormal rhythm irregularly irregular GI: COMMON NORMALS: Soft to palpation and No hepatosplenomegaly present A USCULTATION: Yes normoactive bowel sounds PALPATION: Yes Soft to palpation, No Tenderness to palpation present (GI), No Guarding due to palpation present (GI) and Yes No hepatosplenomegaly present Extremity: COMMON NORMALS: normal to inspection, capillary refill normal, no clubbing, cyanosis or edema, no calf tenderness and no pedal edema Neuro: SENSORIUM/ORIENTATION: Yes oriented to person, Yes oriented to place and Yes oriented to time Skin: COMMON NORMALS: no rashes or lesions noted GENERAL SKIN EXAM: no rashes or lesions noted Course 2 Vital Signs: Vital signs: Vital Signs Temperature 98.8 F 09/26/23 13:30 Pulse Rate 82 09/26/23 18:17 Respiratory Rate 17 09/26/23 18:17 Blood Pressure 155/77 09/26/23 18:17 Pulse Oximetry 93 09/26/23 18:17 Oxygen Delivery Me thod Room Air 09/26/23 18:17 MDM - Arrhythmia/Palpitations Medical Decision Making Care signed out to Dr. Han at change of shift. See final notes for diagnosis and disposition. Lab Data 09/26/23 15:36 09/26/23 15:36 Radiology Impressions Chest X-Ray 09/26/23 15:01 IMPRESSION: 1. Negative chest. Laboratory Results WBC 8.66 10^3/uL (3.29-11.43) 09/26/23 15:36 RBC 4.29 10^6/uL (3.85-5.65) 09/26/23 15:36 Hgb 12.60 g/dL (11.27-16.99) 09/26/23 15:36 Hct 38.4 % (36-47) 09/26/23 15:36 MCV 89.5 fl (85-98) 09/26/23 15:36 MCH 29.4 pg (27-33) 09/26/23 15:36 MCHC 32.8 g/dL (30-55) 09/26/23 15:36 RDW 13.7 % (12.1-15.1) 09/26/23 15:36 Plt Count 218 10^3/cmm (157-399) 09/26/23 15:36 MPV 9.6 fL (7.4-10.4) 09/26/23 15:36 Neut % (Auto) 76.1 % 09/26/23 15:36 Lymph % (Auto) 14.5 % 09/26/23 15:36 Chaves % (Auto) 7.6 % 09/26/23 15:36 Eos % (Auto) 1.3 % 09/26/23 15:36 Baso % (Auto) 0.3 % 09/26/23 15:36 Neut # (Auto) 6.58 10^3/uL (1.8-7.7) 09/26/23 15:36 Lymph # (Auto) 1.3 10^3/uL (0.8-4.8) 09/26/23 15:36 Chaves # (Auto) 0.7 10^3/uL (0.2-0.9) 09/26/23 15:36 Eos # (Auto) 0.1 10^3/uL (0.0-0.8) 09/26/23 15:36 Baso # (Auto) 0.0 10^3/uL (0.0-0.1) 09/26/23 15:36 Nucleated RBC % (auto) 0 % 09/26/23 15:36 Nucleated RBCs # 0.0 /100WBC 09/26/23 15:36 Sodium 138 mmol/L (136-145) 09/26/23 15:36 Potassium 4.0 mmol/L (3.5-5.1) 09/26/23 15:36 Chloride 96 mmol/L (98-107) L 09/26/23 15:36 Carbon Dioxide 29 mmol/L (22-29) 09/26/23 15:36 Anion Gap 17.0 (5-19) 09/26/23 15:36 BUN 23 mg/dL (8-23) 09/26/23 15:36 Creatinine 1.1 mg/dL (0.5-0.9) H 09/26/23 15:36 GFR Calculation Not Reportable 09/26/23 15:36 Glucose 136 mg/dL (65-115) H 09/26/23 15:36 Calculated Osmolality 292 mOsm/kg (285-295) 09/26/23 15:36 Calcium 9.7 mg/dL (8.5-10.5) 09/26/23 15:36 Total Bilirubin 1.8 mg/dL (0.15-1.2) H 09/26/23 15:36 AST 17 U/L (0-32) 09/26/23 15:36 ALT 18 U/L (0-33) 09/26/23 15:36 Alkaline Phosphatase 151 U/L (35-105) H 09/26/23 15:36 Troponin T Baseline 17 ng/L (0-10) H 09/26/23 15:36 Troponin T 120 Minute 15.83 ng/L (0-10) H 09/26/23 17:21 Delta Troponin T -1.17 ABS# (0-10) L 09/26/23 17:21 NT-Pro-B Natriuret Pep 774 pg/mL (0-450) H 09/26/23 15:36 Total Protein 7.4 g/dL (6.6-8.7) 09/26/23 15:36 Albumin 4.3 g/dL (3.5-5.2) 09/26/23 15:36 Globulin 3.1 g/dL (1.3-4.6) 09/26/23 15:36 Urine Color Yellow (Yellow) 09/26/23 15:45 Urine Appearance Clear (CLEAR) 09/26/23 15:45 Urine pH 8 (5-7) H 09/26/23 15:45 Ur Specific [place] 1.010 (1.005-1.030) 09/26/23 15:45 Urine Protein Neg (Negative) 09/26/23 15:45 Urine Glucose (UA) Norm (Normal) 09/26/23 15:45 Urine Ketones Negative (Negative) 09/26/23 15:45 Urine Blood Neg (Negative) 09/26/23 15:45 Urine Nitrate Negative (Negative) 09/26/23 15:45 Urine Bilirubin Neg (Negative) 09/26/23 15:45 Prot Sulfosalicylic Acd Negative (Negative) 09/26/23 15:45 Urine Urobilinogen Norm mg/dL (Negative) 09/26/23 15:45 Ur Leukocyte Esterase Negative (Negative) 09/26/23 15:45 Discharge Plan Discharge Patient Disposition: Home Clinical Impression: Palpitations Diabetes Qualifiers: Diabetes mellitus type: other specified (including MITA) Diabetes mellitus refueler insulin use: without [facility] use Diabetes mellitus complication status: w ithout complication Qualified Code(s): E13.9 - Other specified diabetes mellitus without complications Hypertension Qualifiers: Hypertension type: primary hypertension Qualified Code(s): I10 - Essential (primary) hypertension Condition: Stable Prescriptions: No Action aspirin 81 mg tablet,delayed release (DR/EC) 81 mg PO DAILY hydrocodone-acetaminophen 10-325 mg tablet 1 tab PO Q4H PRN (Reason: pain) 5 Days Qty: 30 0RF chlorthalidone 25 mg tablet 25 mg PO DAILY Qty: 90 2RF Eliquis 5 mg tablet See Rx Instructions .ROUTE .COMPLEX Qty: 90 3RF Hold Instructions: Resume on 08/03/23. Dose Instruction: TAKE ONE TABLET BY MOUTH TWICE DAILY Rx Instructions: TAKE ONE TABLET BY MOUTH TWICE DAILY fluoxetine 40 mg capsule 40 mg PO QAM atorvastatin 40 mg tablet 40 mg PO QPM ferrous sulfate [FeroSul] 325 mg (65 mg iron) tablet 325 mg PO BID metformin 500 mg tablet extended release 24 hr 1,000 mg PO BIDWM cholecalciferol (vitamin D3) [Vitamin D3] 25 mcg (1,000 unit) Capsule 4,000 unit PO QAM amlodipine 10 mg tablet 5 mg PO DAILY magnesium 500 mg Tablet 500 mg PO DAILY Lasix 20 mg Tablet 20 mg PO DAILY Colace 100 mg capsule 100 mg PO BID Qty: 20 0RF lisinopril 40 mg tablet 40 mg PO BID carvedilol 25 mg tablet 25 mg PO BID melatonin 5 mg Tablet 5 - 10 mg PO BEDTIME Discharge Orders: Discharge ED (Routine); Ordered 09/26/23 Ordered By: Jose Juan Law Referrals: Eran Henry, [Primary Care Provider] - Discharge Diet: Advance as tolerated Discharge Activity: Resume usual activity Patient Instructions: Opioid Safety, Pain Management Activity Restrictions/Additional Instructions: Please return to the emergency department if you develop a fever greater than 100.5, develop new symptoms, or fail to get better. Please follow-up with your primary care physician on Friday as scheduled to further discuss adjusting your antihypertensives. Coding Level of Care Code ED Food And Beverage Assistant Manager for Chg [employer]wd Documented by User: Jose Juan Han DO 09/26/23 18:47 HPI - Arrhythmia/Palpitations 2 General: Chief Complaint: Arrhythmia/Palpitations Stated Complaint: elevated bp, feels like passing out Time Seen by Provider: 09/26/23 15:12 PFSH ED 2 PFSH: Medical History Anticoagulation adequate with anticoagulant therapy Atrial fibrillation Elevated troponin Hypokalemia Pulmonary hypertension Bilateral pulmonary embolism Hypoxia Bronchitis URI (upper respiratory infection) SVT (supraventricular tachycardia) Diabetes Hypertension Surgical History Hx of hemorrhoidectomy 07/29/23 Dr Maxwell History of appendectomy History of cholecystectomy Family History Mother Myocardial infarct Hypertension Diabetes Sister Hypertension Diabetes Denies family history of Stroke Social History Smoking and tobacco/nicotine status: never used tobacco/nicotine Alcohol intake: never Substance/Drug Use: never Course 2 Vital Signs: Vital signs: Vital Signs Temperature 98.8 F 09/26/23 13:30 Pulse Rate 82 09/26/23 18:17 Respiratory Rate 17 09/26/23 18:17 Blood Pressure 155/77 09/26/23 18:17 Pulse Oximetry 93 09/26/23 18:17 Oxygen Delivery Me thod Room Air 09/26/23 18:17 MDM - Arrhythmia/Palpitations Medical Decision Making Care signed out to Dr. Han at change of shift. See final notes for diagnosis and disposition. Assumed care from Dr. Chisholm. Patient was awaiting a repeat troponin at [facility]. Patient's repeat troponin went down compared to her initial troponin. After review of her chart she does appear to have poorly controlled hypertension, hyperglycemia, elevated creatinine at baseline, and elevated bilirubin at baseline. She otherwise had normal vitals and labs. Provide the patient discharge recommendations. She is to return the emergency department with new or worsening symptoms. She is scheduled to see her primary care doctor on Friday. Encouraged her to keep that appointment and discuss her feeling of palpitations and malaise as well as adjustment to her antihypertensive medication. Lab Data 09/26/23 15:36 09/26/23 15:36 Radiology Impressions Chest X-Ray 09/26/23 15:01 IMPRESSION: 1. Negative chest. Laboratory Results WBC 8.66 10^3/uL (3.29-11.43) 09/26/23 15:36 RBC 4.29 10^6/uL (3.85-5.65) 09/26/23 15:36 Hgb 12.60 g/dL (11.27-16.99) 09/26/23 15:36 Hct 38.4 % (36-47) 09/26/23 15:36 MCV 89.5 fl (85-98) 09/26/23 15:36 MCH 29.4 pg (27-33) 09/26/23 15:36 MCHC 32.8 g/dL (30-55) 09/26/23 15:36 RDW 13.7 % (12.1-15.1) 09/26/23 15:36 Plt Count 218 10^3/cmm (157-399) 09/26/23 15:36 MPV 9.6 fL (7.4-10.4) 09/26/23 15:36 Neut % (Auto) 76.1 % 09/26/23 15:36 Lymph % (Auto) 14.5 % 09/26/23 15:36 Chaves % (Auto) 7.6 % 09/26/23 15:36 Eos % (Auto) 1.3 % 09/26/23 15:36 Baso % (Auto) 0.3 % 09/26/23 15:36 Neut # (Auto) 6.58 10^3/uL (1.8-7.7) 09/26/23 15:36 Lymph # (Auto) 1.3 10^3/uL (0.8-4.8) 09/26/23 15:36 Chaves # (Auto) 0.7 10^3/uL (0.2-0.9) 09/26/23 15:36 Eos # (Auto) 0.1 10^3/uL (0.0-0.8) 09/26/23 15:36 Baso # (Auto) 0.0 10^3/uL (0.0-0.1) 09/26/23 15:36 Nucleated RBC % (auto) 0 % 09/26/23 15:36 Nucleated RBCs # 0.0 /100WBC 09/26/23 15:36 Sodium 138 mmol/L (136-145) 09/26/23 15:36 Potassium 4.0 mmol/L (3.5-5.1) 09/26/23 15:36 Chloride 96 mmol/L (98-107) L 09/26/23 15:36 Carbon Dioxide 29 mmol/L (22-29) 09/26/23 15:36 Anion Gap 17.0 (5-19) 09/26/23 15:36 BUN 23 mg/dL (8-23) 09/26/23 15:36 Creatinine 1.1 mg/dL (0.5-0.9) H 09/26/23 15:36 GFR Calculation Not Reportable 09/26/23 15:36 Glucose 136 mg/dL (65-115) H 09/26/23 15:36 Calculated Osmolality 292 mOsm/kg (285-295) 09/26/23 15:36 Calcium 9.7 mg/dL (8.5-10.5) 09/26/23 15:36 Total Bilirubin 1.8 mg/dL (0.15-1.2) H 09/26/23 15:36 AST 17 U/L (0-32) 09/26/23 15:36 ALT 18 U/L (0-33) 09/26/23 15:36 Alkaline Phosphatase 151 U/L (35-105) H 09/26/23 15:36 Troponin T Baseline 17 ng/L (0-10) H 09/26/23 15:36 Troponin T 120 Minute 15.83 ng/L (0-10) H 09/26/23 17:21 Delta Troponin T -1.17 ABS# (0-10) L 09/26/23 17:21 NT-Pro-B Natriuret Pep 774 pg/mL (0-450) H 09/26/23 15:36 Total Protein 7.4 g/dL (6.6-8.7) 09/26/23 15:36 Albumin 4.3 g/dL (3.5-5.2) 09/26/23 15:36 Globulin 3.1 g/dL (1.3-4.6) 09/26/23 15:36 Urine Color Yellow (Yellow) 09/26/23 15:45 Urine Appearance Clear (CLEAR) 09/26/23 15:45 Urine pH 8 (5-7) H 09/26/23 15:45 Ur Specific [place] 1.010 (1.005-1.030) 09/26/23 15:45 Urine Protein Neg (Negative) 09/26/23 15:45 Urine Glucose (UA) Norm (Normal) 09/26/23 15:45 Urine Ketones Negative (Negative) 09/26/23 15:45 Urine Blood Neg (Negative) 09/26/23 15:45 Urine Nitrate Negative (Negative) 09/26/23 15:45 Urine Bilirubin Neg (Negative) 09/26/23 15:45 Prot Sulfosalicylic Acd Negative (Negative) 09/26/23 15:45 Urine Urobilinogen Norm mg/dL (Negative) 09/26/23 15:45 Ur Leukocyte Esterase Negative (Negative) 09/26/23 15:45 All radiology interpretation(s) finalized by discharge Discharge Plan Discharge Patient Disposition: Home Clinical Impression: Palpitations Diabetes Qualifiers: Diabetes mellitus type: other specified (including MITA) Diabetes mellitus refueler insulin use: without refueler use Diabetes mellitus complication status: w [facility] complication Qualified Code(s): E13.9 - Other specified diabetes mellitus without complications Hypertension Qualifiers: Hypertension type: primary hypertension Qualified Code(s): I10 - Essential (primary) hypertension Condition: Stable Prescriptions: No Action aspirin 81 mg tablet,delayed release (DR/EC) 81 mg PO DAILY hydrocodone-acetaminophen 10-325 mg tablet 1 tab PO Q4H PRN (Reason: pain) 5 Days Qty: 30 0RF chlorthalidone 25 mg tablet 25 mg PO DAILY Qty: 90 2RF Eliquis 5 mg tablet See Rx Instructions .ROUTE .COMPLEX Qty: 90 3RF Hold Instructions: Resume on 08/03/23. Dose Instruction: TAKE ONE TABLET BY MOUTH TWICE DAILY Rx Instructions: TAKE ONE TABLET BY MOUTH TWICE DAILY fluoxetine 40 mg capsule 40 mg PO QAM atorvastatin 40 mg tablet 40 mg PO QPM ferrous sulfate [FeroSul] 325 mg (65 mg iron) tablet 325 mg PO BID metformin 500 mg tablet extended release 24 hr 1,000 mg PO BIDWM cholecalciferol (vitamin D3) [Vitamin D3] 25 mcg (1,000 unit) Capsule 4,000 unit PO QAM amlodipine 10 mg tablet 5 mg PO DAILY magnesium 500 mg Tablet 500 mg PO DAILY Lasix 20 mg Tablet 20 mg PO DAILY Colace 100 mg capsule 100 mg PO BID Qty: 20 0RF lisinopril 40 mg tablet 40 mg PO BID carvedilol 25 mg tablet 25 mg PO BID melatonin 5 mg Tablet 5 - 10 mg PO BEDTIME Discharge Orders: Discharge ED (Routine); Ordered 09/26/23 Ordered By: Jose Juan Han Referrals: Eran Henry, [Primary Care Provider] - Discharge Diet: Advance as tolerated Discharge Activity: Resume usual activity Patient Instructions: Opioid Safety, Pain Management Activity Restrictions/Additional Instructions: Please return to the emergency department if you develop a fever greater than 100.5, develop new symptoms, or fail to get better. Please follow-up with your primary care physician on Friday as scheduled to further discuss adjusting your antihypertensives. Coding Level of Care Code ED Food And Beverage Assistant Manager for Sancho Romo
[2023-09-26 15:33] VITALS: BP 171/88; PULSE 75; RESP 23; O2SAT 98
[2023-09-26 15:42] LABS: Basophils % 0.3 %; Eosinophils # 0.1 10^3/uL (0.0-0.8); Eosinophils % 1.3 %; Hematocrit 38.4 % (36-47); Lymphocytes # 1.3 10^3/uL (0.8-4.8); Lymphocytes % 14.5 %; Mean Corpuscular HGB Conc 32.8 g/dL (30-55); Mean Corpuscular Hemoglobin 29.4 pg (27-33); Mean Corpuscular Volume 89.5 fl (85-98); Mean Platelet Volume 9.6 fL (7.4-10.4); Monocytes # 0.7 10^3/uL (0.2-0.9); Monocytes % 7.6 %; Neutrophils # 6.58 10^3/uL (1.8-7.7); Neutrophils % 76.1 %; Nucleated Red Blood Cells % 0 %; Platelet Count 218 10^3/cmm (157-399); Red Blood Count 4.29 10^6/uL (3.85-5.65); Red Cell Distribution Width 13.7 % (12.1-15.1); White Blood Count 8.66 10^3/uL (3.29-11.43)
[2023-09-26 15:56] LABS: Add Urine Microscopic? NO; Charge for UA Resulting for Rev
[2023-09-26 16:02] LABS: Troponin(5th) Baseline 17 ng/L (0-10)
[2023-09-26 16:09] LABS: Bilirubin Urine Neg (Negative); Blood Urine Neg (Negative); Glucose Urine UA Norm (Normal); Ketones Urine Negative (Negative); Leukocyte Esterase Urine Negative (Negative); Nitrate Urine Negative (Negative); Protein Urine Neg (Negative); Sulfosalicylic Acid Urine Negative (Negative); Urine Appearance Clear (CLEAR); Urine Color Yellow (Yellow); Urobilinogen Urine Norm (Negative); pH Urine 8 (5-7)
[2023-09-26 16:16] LABS: Alanine Aminotransferase 18 U/L (0-33); Albumin Level 4.3 g/dL (3.5-5.2); Alkaline Phosphatase 151 U/L (35-105); Aspartate Amino Transferase 17 U/L (0-32); Blood Urea Nitrogen 23 mg/dL (8-23); Calcium 9.7 mg/dL (8.5-10.5); Carbon Dioxide 29 mmol/L (22-29); Chloride 96 mmol/L (98-107); Globulin 3.1 g/dL (1.3-4.6); Glucose 136 mg/dL (65-115); NT Pro B Type Natriuretic Pept 774 pg/mL (0-450); Osmolality Calculated 292 mOsm/kg (285-295); Sodium 138 mmol/L (136-145); Total Bilirubin 1.8 mg/dL (0.15-1.2); Total Protein 7.4 g/dL (6.6-8.7)
--- NOTE | 2023-09-26 16:52 | PC.NURSE ---
pt ambulated to bathroom with visitor standby, denies need for assistance.
[2023-09-26 17:04] VITALS: PULSE 80; O2SAT 96
--- NOTE | 2023-09-26 17:05 | ECG_ITS ---
[facility] Test Date: 2023-09-26 Pat Name: Tresa Abrams Department: Room: Gender: Female Production Team Advisor: : 1945 Requested By: Ginny Hunt Order Number: [id number] Mitchell MD: Gigi Beaver M.D. Measurements Intervals [place] Rate: 82 P: 0 [place]: 0 QRS: -5 QRSD: 106 T: 66 QT: 408 QTc: 479 Interpretive Statements ATRIAL FIBRILLATION WITH ABERRANT CONDUCTION OR VENTRICULAR PREMATURE COMPLEXES LOW QRS VOLTAGE [QRS DEFLECTION < 0.5/1.0 mV IN LIMB/CHEST LEADS] POSSIBLE ANTERIOR MYOCARDIAL INFARCTION , PROBABLY OLD [30 ms Q WAVE IN V3/V4, OR R < 0.2 mV IN V4] Compared to ECG 09/26/2023 13:24:05 Ventricular premature complex(es) now present Aberrant conduction of supraventricular beat(s) now present Myocardial infarct finding still present Electronically Signed On 09-27-2023 8:11:36 CDT by Gigi Beaver M.D. [email or web address]
[2023-09-26 17:49] LABS: Troponin 5 2HR 15.83 ng/L (0-10)
[2023-09-26 18:16] LABS: Troponin 5 2HR Delta -1.17 ABS# (0-10)
[2023-09-26 18:17] VITALS: BP 155/77; PULSE 82; RESP 17; O2SAT 93
== END 2023-09-26 19:22 | disposition home or self-care (01) ==
PROVIDERS: Physician Assistant; Emergency Provider General Practice; PCP Family Medicine
DX: I10 Essential (primary) hypertension (principal); R00.2 Palpitations; E13.9 Other specified diabetes mellitus without complications; Z79.82 Long term (current) use of aspirin; Z79.01 Long term (current) use of anticoagulants; Z79.84 Long term (current) use of oral hypoglycemic drugs
CPT/HCPCS: 36415; 71045; 80053; 81003; 83880; 84484; 85025; 93005; 99285

== ENCOUNTER 2024-05-04 16:49 | Emergency (ER) | payer MEDICAID, SELFPAY ==
[2024-05-04 16:56] VITALS: BP 161/81; PULSE 114; RESP 24; TEMP 38.6; O2SAT 94; BMI 35.5
--- NOTE | 2024-05-04 17:07 | ECG_ITS ---
[facility] Date: 2024-[facility]04 Pat Name: Tresa Abrams Department: Room: Gender: Female District Wildlife Manager: : 1945 Requested By: Rony Pleitez Order Number: [id number] Mitchell MD: Edgard Florence M.D. Measurements Intervals [place] Rate: 114 P: 0 [place]: 0 QRS: 12 QRSD: 77 T: 26 QT: 325 QTc: 449 Interpretive Statements ATRIAL FIBRILLATION WITH RAPID VENTRICULAR RESPONSE LOW QRS VOLTAGE [QRS DEFLECTION < 0.5/1.0 mV IN LIMB/CHEST LEADS] ANTEROSEPTAL MYOCARDIAL INFARCTION , PROBABLY OLD [40+ ms Q WAVE IN V1-V4] Compared to ECG 09/26/2023 17:05:04 Ventricular premature complex(es) no longer present Aberrant conduction of supraventricular beat(s) no longer present Myocardial infarct finding still present Electronically Signed On 05-06-2024 11:18:11 FORENSIC COMPUTER EXAMINER by Edgard Florence M.D. [email or web address]
[2024-05-04 17:12] VITALS: BP 162/83; O2SAT 96
--- NOTE | 2024-05-04 17:12 | XRR_ITS ---
PROCEDURE INFORMATION: Exam: XR Chest Exam date and time: 05/04/2024 5:29 PM Age: 79 years old Clinical indication: Fever and other: Weakness; Additional info: Weakness fever TECHNIQUE: Imaging protocol: Radiologic exam of the chest. Views: 1 view. COMPARISON: CR XR chest 1V portable [id number] 09/26/2023 3:10 PM FINDINGS: Lungs: Unremarkable. No consolidation. Pleural spaces: Unremarkable. No pleural effusion. No pneumothorax. Heart/Mediastinum: Unremarkable. No cardiomegaly. Bones/joints: Unremarkable. XR/XR chest 1V portable [id number] IMPRESSION: No acute findings.
--- NOTE | 2024-05-04 17:12 | CTR_ITS ---
PROCEDURE INFORMATION: Exam: CT Head Without Contrast Exam date and time: 05/04/2024 5:32 PM Age: 79 years old Clinical indication: Injury or trauma; Fall; Blunt trauma (contusions or hematomas); Without loss of consciousness; Additional info: Fall right sided weakness TECHNIQUE: Imaging protocol: Computed tomography of the head without contrast. Radiation optimization: All CT scans at this facility use at least one of these dose optimization techniques: automated exposure control; mA and/or kV adjustment per patient size (includes targeted exams where dose is matched to clinical indication); or iterative reconstruction. COMPARISON: CT angio head [id number] 07/04/2022 9:38 AM RADIATION DOSE METRICS: Total DLP (mGy-cm): 1057.69 FINDINGS: Brain: No hemorrhage. No edema. [id number] diffuse cerebral atrophy and sequela of chronic small vessel ischemic disease. 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 No mass effect. Cerebral ventricles: No ventriculomegaly. Paranasal sinuses: Visualized sinuses are unremarkable. No fluid levels. Mastoid air cells: Visualized mastoid air cells are well aerated. Bones: Unremarkable. No acute fracture. Soft tissues: Unremarkable. CT/CT head wo con* [id number] IMPRESSION: No acute intracranial abnormality.
[2024-05-04] MEDS: ondansetron 2 mg/ML SDV 2 mL 4 MG IVP (17:22)
--- NOTE | 2024-05-04 17:22 | PC.NURSE ---
NO STROKE ALERT CALLED PER DR STACY @ 5531.
[2024-05-04 17:37] LABS: Basophils % 0.5 %; Eosinophils # 0.1 10^3/uL (0.0-0.8); Eosinophils % 1.2 %; Hematocrit 36.6 % (36-47); Lymphocytes # 0.4 10^3/uL (0.8-4.8); Lymphocytes % 5.3 %; Mean Corpuscular HGB Conc 32.8 g/dL (30-55); Mean Corpuscular Hemoglobin 29.7 pg (27-33); Mean Corpuscular Volume 90.6 fl (85-98); Mean Platelet Volume 9.7 fL (7.4-10.4); Monocytes # 0.7 10^3/uL (0.2-0.9); Monocytes % 10.1 %; Neutrophils # 5.47 10^3/uL (1.8-7.7); Neutrophils % 82.4 %; Nucleated Red Blood Cells % 0 %; Platelet Count 217 10^3/cmm (157-399); Red Blood Count 4.04 10^6/uL (3.85-5.65); Red Cell Distribution Width 13.2 % (12.1-15.1); White Blood Count 6.63 10^3/uL (3.29-11.43)
[2024-05-04 18:03] LABS: INR 1.07 (0.8-1.2)
[2024-05-04 18:03] LABS: Covid PCR NEGATIVE (Negative); Influenza A POSITIVE (Negative); Influenza B NEGATIVE (Negative); Respiratory Syncytial Virus Ce NEGATIVE (Negative)
--- NOTE | 2024-05-04 18:04 | W.ED.WEAKNES ---
HPI - Weakness General: Chief complaint: Weakness Stated complaint: stroke like symptoms Time Seen by Provider: 05/04/24 17:11 History of Present Illness: Patient presents to the ER with general weakness. Patient fell to the floor today and was unable to get herself up off the floor so she called family. When family got there they thought she had some right-sided weakness. Patient states she is felt weak for couple days. Prescription stroke scale is negative, patient is able to stand pivot and transfer self without any problem. At first nurse thought the patient was having difficulty lifting her leg against gravity. This was not the case I performed a thorough exam. Patient's temperature was 101.4 with a pulse of 114 bpm. Review of Systems General: Reports: 10 or more systems reviewed and unremarkable except in HPI and below PFSH ED PFSH: Medical History Anticoagulation adequate with anticoagulant therapy Atrial fibrillation Elevated troponin Hypokalemia Pulmonary hypertension Bilateral pulmonary embolism Hypoxia Bronchitis URI (upper respiratory infection) SVT (supraventricular tachycardia) Diabetes Hypertension Surgical History Hx of hemorrhoidectomy 07/29/23 Dr Maxwell History of appendectomy History of cholecystectomy Family History Mother Myocardial infarct Hypertension Diabetes Sister Hypertension Diabetes Denies family history of Stroke Social History Smoking and tobacco/nicotine status: never used tobacco/nicotine Alcohol intake: never Substance/Drug Use: never Physical Exam Const: COMMON NORMALS: no acute distress, average body habitus, patient oriented x3, no limitations, healthy appearing, alert and well nourished HENMT: COMMON NORMALS: normocephalic, atraumatic, hearing grossly normal bilaterally, external ears normal, Normal external nose present and moist oral mucous membranes HEAD & SCALP: normocephalic and atraumatic NOSE: Normal external nose present EXTERNAL EAR: Yes external ears normal Eye: COMMON NORMALS: Equal, round and reactive pupils present, EOMs intact bilaterally, conjunctivae normal and no scleral icterus CONJUNCTIVA: Yes conjunctivae normal PUPIL: Yes Equal, round and reactive pupils present Neck/C-Spine: COMMON NORMALS: full ROM, no lymphadenopathy, supple, no meningeal signs, no JVD and Thyroid normal THYROID: Thyroid normal Chest: COMMONS NORMALS: normal inspection of the chest and normal palpation of entire chest wall Resp: COMMON NORMALS: normal respiratory effort, No retractions, No use of accessory muscles and clear to auscultation bilaterally AUSCULTATION: clear to auscultation bilaterally Cardio: COMMON NORMALS: no JVD, regular rate, regular rhythm, S1 normal heart sound present, S2 normal heart sound present, No gallops present (Cardio), No clicks present (Cardio), No murmurs present (Cardio) and No rub (Cardio) RATE: regular rate RHYTHM: regular rhythm HEART SOUNDS: S1 normal heart sound present and S2 normal heart sound present GI: COMMON NORMALS: Normal to inspection, nondistended, normoactive bowel sounds present, Soft to palpation, non-tender, No hepatosplenomegaly present and no masses PALPATION: Yes Soft to palpation and Yes No hepatosplenomegaly present Neuro: COMMON NORMALS: patient oriented x3 SENSORIUM/ORIENTATION: Yes alert MENINGEAL SIGNS: Yes no meningeal signs Course Vital Signs: Vital signs: Vital Signs Temperature 98.9 F 05/04/24 19:55 Pulse Rate 84 05/04/24 19:55 Respiratory Rate 17 05/04/24 19:20 Blood Pressure 123/54 05/04/24 19:55 Pulse Oximetry 94 05/04/24 19:55 Oxygen Delivery Me thod Room Air 05/04/24 19:20 MDM - Weakness Medical Decision Making Patient head CT and chest x-ray read by radiologist as negative, lab work essentially unremarkable except for being influenza A positive. These results was discussed with the patient and her daughter. Patient be discharged home. Patient was given Tylenol and fever improved to 98.9 patient is feeling better. Lab Data 05/04/24 17:20 05/04/24 17:20 Radiology Impressions Chest X-Ray 05/04/24 17:12 IMPRESSION: No acute findings. Head CT 05/04/24 17:12 IMPRESSION: No acute intracranial abnormality. Laboratory Results WBC 6.63 10^3/uL (3.29-11.43) 05/04/24 17:20 RBC 4.04 10^6/uL (3.85-5.65) 05/04/24 17:20 Hgb 12.00 g/dL (11.27-16.99) 05/04/24 17:20 Hct 36.6 % (36-47) 05/04/24 17:20 MCV 90.6 fl (85-98) 05/04/24 17:20 MCH 29.7 pg (27-33) 05/04/24 17:20 MCHC 32.8 g/dL (30-55) 05/04/24 17:20 RDW 13.2 % (12.1-15.1) 05/04/24 17:20 Plt Count 217 10^3/cmm (157-399) 05/04/24 17:20 MPV 9.7 fL (7.4-10.4) 05/04/24 17:20 Neut % (Auto) 82.4 % 05/04/24 17:20 Lymph % (Auto) 5.3 % 05/04/24 17:20 [place] % (Auto) 10.1 % 05/04/24 17:20 Eos % (Auto) 1.2 % 05/04/24 17:20 Baso % (Auto) 0.5 % 05/04/24 17:20 Neut # (Auto) 5.47 10^3/uL (1.8-7.7) 05/04/24 17:20 Lymph # (Auto) 0.4 10^3/uL (0.8-4.8) L 05/04/24 17:20 [place] # (Auto) 0.7 10^3/uL (0.2-0.9) 05/04/24 17:20 Eos # (Auto) 0.1 10^3/uL (0.0-0.8) 05/04/24 17:20 Baso # (Auto) 0.0 10^3/uL (0.0-0.1) 05/04/24 17:20 Nucleated RBC % (auto) 0 % 05/04/24 17:20 Nucleated RBCs # 0.0 /100WBC 05/04/24 17:20 PT 14.70 SECONDS (12.1-14.9) 05/04/24 17:20 INR 1.07 (0.8-1.2) 05/04/24 17:20 Sodium 137 mmol/L (136-145) 05/04/24 17:20 Potassium 3.7 mmol/L (3.5-5.1) 05/04/24 17:20 Chloride 97 mmol/L (98-107) L 05/04/24 17:20 Carbon Dioxide 25 mmol/L (22-29) 05/04/24 17:20 Anion Gap 18.7 (5-19) 05/04/24 17:20 BUN 18 mg/dL (8-23) 05/04/24 17:20 Creatinine 0.9 mg/dL (0.5-0.9) 05/04/24 17:20 GFR Calculation Not Reportable 05/04/24 17:20 Glucose 179 mg/dL (65-115) H 05/04/24 17:20 Calculated Osmolality 290 mOsm/kg (285-295) 05/04/24 17:20 Lactic Acid 2.2 mmol/L (0.5-2.2) 05/04/24 17:20 Calcium 9.4 mg/dL (8.5-10.5) 05/04/24 17:20 Magnesium 1.8 mg/dL (1.7-2.3) 05/04/24 17:20 Total Bilirubin 2.1 mg/dL (0.15-1.2) H 05/04/24 17:20 AST 28 U/L (0-32) 05/04/24 17:20 ALT 29 U/L (0-33) 05/04/24 17:20 Alkaline Phosphatase 176 U/L (35-105) H 05/04/24 17:20 Troponin T Baseline 20 ng/L (0-10) H 05/04/24 17:20 NT-Pro-B Natriuret Pep 1366 pg/mL (0-450) H 05/04/24 17:20 Total Protein 7.0 g/dL (6.6-8.7) 05/04/24 17:20 Albumin 4.4 g/dL (3.5-5.2) 05/04/24 17:20 Globulin 2.6 g/dL (1.3-4.6) 05/04/24 17:20 Procalcitonin 0.07 ng/mL (0-0.5) 05/04/24 17:20 Urine Color Yellow (Yellow) 05/04/24 19:11 Urine Appearance Clear (CLEAR) 05/04/24 19:11 Urine pH 6.5 (5-7) 05/04/24 19:11 Ur Specific [place] 1.029 (1.005-1.030) 05/04/24 19:11 Urine Protein 2+ (Negative) A 05/04/24 19:11 Urine Glucose (UA) Negative (Normal) 05/04/24 19:11 Urine Ketones Trace (Negative) 05/04/24 19:11 Urine Blood Negative (Negative) 05/04/24 19:11 Urine Nitrate Negative (Negative) 05/04/24 19:11 Urine Bilirubin Negative (Negative) 05/04/24 19:11 Urine Urobilinogen 1.0 mg/dL (Negative) 05/04/24 19:11 Ur Leukocyte Esterase Negative (Negative) 05/04/24 19:11 Urine RBC 3-5 /hpf (0-2) 05/04/24 19:11 Urine WBC 0-5 /hpf (0-5) 05/04/24 19:11 Ur Squamous Epith Cells 11-20 /hpf (0-5) H 05/04/24 19:11 Amorphous Sediment Not Reportable 05/04/24 19:11 Urine Bacteria None seen /hpf (NONE) 05/04/24 19:11 Hyaline Casts 0.81 /lpf 05/04/24 19:11 Coronavirus (PCR) Negative (Negative) 05/04/24 17:17 Influenza A (PCR) Positive (Negative) 05/04/24 17:17 Influenza Type B (PCR) Negative (Negative) 05/04/24 17:17 RSV (PCR) Negative (Negative) 05/04/24 17:17 All radiology interpretation(s) finalized by discharge Discharge Plan Discharge Patient Disposition: Home Clinical Impression: Influenza A, Fever Condition: Stable Prescriptions: No Action aspirin 81 mg tablet,delayed release (DR/EC) 81 mg PO DAILY chlorthalidone 25 mg tablet 25 mg PO DAILY Qty: 90 2RF Eliquis 5 mg tablet See Rx Instructions .ROUTE .COMPLEX Qty: 90 3RF Hold Instructions: Resume on 08/03/23. Dose Instruction: TAKE ONE TABLET BY MOUTH TWICE DAILY Rx Instructions: TAKE ONE TABLET BY MOUTH TWICE DAILY fluoxetine 40 mg capsule 40 mg PO QAM atorvastatin 40 mg tablet 40 mg PO QPM ferrous sulfate [FeroSul] 325 mg (65 mg iron) tablet 325 mg PO BID metformin 500 mg tablet extended release 24 hr 1,000 mg PO BIDWM cholecalciferol (vitamin D3) [Vitamin D3] 25 mcg (1,000 unit) Capsule 4,000 unit PO QAM amlodipine 10 mg tablet 5 mg PO DAILY magnesium 500 mg Tablet 500 mg PO DAILY Lasix 20 mg Tablet 20 mg PO DAILY Colace 100 mg capsule 100 mg PO BID Qty: 20 0RF lisinopril 40 mg tablet 40 mg PO BID carvedilol 25 mg tablet 25 mg PO BID melatonin 5 mg Tablet 5 - 10 mg PO BEDTIME Discharge Orders: Discharge ED (Routine); Ordered 05/04/24 Ordered By: Rony Pleitez Referrals: Eran Henry, [Primary Care Provider] - 1 week Patient Instructions: Influenza (ED), Fever - Adult Activity Restrictions/Additional Instructions: Thank you for choosing [facility] for your healthcare needs today. Please realize that you were seen in the emergency department and that we are providing you with an emergency medical screening exam and this may not be a complete and all exclusive of all testing and/or medical workup we may need to determine your element or severity of your illness. It is very important that you follow-up as instructed with your primary care provider or specialist for the additional evaluation and to discuss your medical treatment plan. You may return to the emergency department should you have concerns or if your condition changes or worsens in any way. 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 Related Data Home Medications Medication Instructions Recorded Confirmed atorvastatin 40 mg tablet 40 mg PO QPM 08/14/21 10/20/23 cholecalciferol (vitamin D3) 25 4,000 unit PO QAM 08/14/21 10/20/23 mcg (1,000 unit) capsule (Vitamin D3) ferrous sulfate 325 mg (65 mg 325 mg PO BID 08/14/21 10/20/23 iron) tablet (FeroSul) fluoxetine 40 mg capsule 40 mg PO QAM 08/14/21 10/20/23 metformin 500 mg tablet,extended 1,000 mg PO BIDWM 08/14/21 10/20/23 release 24 hr carvedilol 25 mg tablet 25 mg PO BID 11/07/21 10/20/23 lisinopril 40 mg tablet 40 mg PO BID 11/07/21 10/20/23 amlodipine 10 mg tablet 5 mg PO DAILY 05/06/22 10/20/23 aspirin 81 mg tablet,delayed 81 mg PO DAILY 05/06/22 10/20/23 release melatonin 5 mg tablet 5 - 10 mg PO BEDTIME 05/06/22 10/20/23 furosemide 20 mg tablet (Lasix) 20 mg PO DAILY 07/28/23 10/20/23 magnesium 500 mg tablet 500 mg PO DAILY 07/28/23 10/20/23 Previous Rx's Medication Instructions Recorded docusate sodium 100 mg capsule 100 mg PO BID #20 caps 07/29/23 (Colace) chlorthalidone 25 mg tablet 25 mg PO DAILY #90 tabs 07/30/23 apixaban 5 mg tablet (Eliquis) See Rx Instructions .Route 02/10/24 .COMPLEX #90 tabs Allergies Allergy/AdvReac Type Severity Reaction Status Date / Time Penicillins Allergy itching Verified 05/04/24 17:02 and swelling cefaclor [From Ceclor] AdvReac ALGY-Rash Verified 05/04/24 17:02
[2024-05-04] MEDS: acetaminophen 500 mg Tablet 1000 MG PO (18:07)
[2024-05-04 18:21] LABS: Troponin(5th) Baseline 20 ng/L (0-10)
[2024-05-04 18:31] LABS: Alanine Aminotransferase 29 U/L (0-33); Albumin Level 4.4 g/dL (3.5-5.2); Alkaline Phosphatase 176 U/L (35-105); Anion Gap 18.7 (5-19); Aspartate Amino Transferase 28 U/L (0-32); Blood Urea Nitrogen 18 mg/dL (8-23); Calcium 9.4 mg/dL (8.5-10.5); Carbon Dioxide 25 mmol/L (22-29); Chloride 97 mmol/L (98-107); Creatinine Clr Calc Pharmacy 60.4085; Globulin 2.6 g/dL (1.3-4.6); Glucose 179 mg/dL (65-115); Magnesium 1.8 mg/dL (1.7-2.3); NT Pro B Type Natriuretic Pept 1366 pg/mL (0-450); Osmolality Calculated 290 mOsm/kg (285-295); Potassium 3.7 mmol/L (3.5-5.1); Sodium 137 mmol/L (136-145); Total Bilirubin 2.1 mg/dL (0.15-1.2)
[2024-05-04 18:44] LABS: Lactic Sepsis W/Reflex 2.2 mmol/L (0.5-2.2)
[2024-05-04 18:55] LABS: Procalcitonin 0.07 ng/mL (0-0.5)
[2024-05-04 19:20] VITALS: BP 108/63; PULSE 90; RESP 17; O2SAT 92
[2024-05-04 19:30] VITALS: BP 123/54; PULSE 90; O2SAT 90
[2024-05-04 19:45] LABS: Bilirubin Urine Negative (Negative); Blood Urine Negative (Negative); Glucose Urine UA Negative (Normal); Ketones Urine Trace (Negative); Leukocyte Esterase Urine Negative (Negative); Nitrate Urine Negative (Negative); Protein Urine 2+ (Negative); Specific Gravity, Urine 1.029 (1.005-1.030); Urine Appearance Clear (CLEAR); Urine Color Yellow (Yellow); pH Urine 6.5 (5-7)
[2024-05-04 19:50] LABS: Add Urine Microscopic? YES; Bacteria Urine None Seen /hpf; Hyaline Casts Urine 0.81 /lpf; WBC Urine 0-5 /hpf (0-5)
[2024-05-04 19:55] VITALS: BP 123/54; PULSE 84; TEMP 37.2; O2SAT 94
[2024-05-04 20:07] LABS: Reflex Lactate Order REFLEX LACTIC ORDERD
[2024-05-04 20:27] VITALS: BP 107/61; PULSE 76; O2SAT 92
== END 2024-05-04 20:31 | disposition home or self-care (01) ==
PROVIDERS: Emergency Provider Emergency Medicine; PCP Family Medicine
DX: J10.1 Influenza due to other identified influenza virus with other respiratory manifestations (principal); F50.9 Eating disorder, unspecified; Z11.52 Encounter for screening for COVID-19; Z79.82 Long term (current) use of aspirin; Z79.01 Long term (current) use of anticoagulants; Z79.84 Long term (current) use of oral hypoglycemic drugs; E11.9 Type 2 diabetes mellitus without complications; I10 Essential (primary) hypertension
CPT/HCPCS: 70450; 71045; 80053; 81001; 83605; 83735; 83880; 84145; 84484; 85025; 85610; 87637; 93005; 96374; 99285; J2405

== ENCOUNTER 2024-05-08 20:29 | Emergency (ER) | payer MEDICAID, SELFPAY ==
[2024-05-08 20:36] VITALS: BP 126/70; PULSE 69; RESP 16; TEMP 36.8; O2SAT 94; BMI 36.3
--- NOTE | 2024-05-08 20:40 | ECG_ITS ---
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
[2024-05-08 21:28] LABS: Covid PCR NEGATIVE (Negative); Influenza A POSITIVE (Negative); Influenza B NEGATIVE (Negative); Respiratory Syncytial Virus Ce NEGATIVE (Negative)
--- NOTE | 2024-05-10 15:09 | PC.NURSE ---
Follow up phone call made to pt. She says she is feeling a little bit better. She states she saw her PCP already. Instructed pt to return if worsening.
== END 2024-05-08 21:35 | disposition left against medical advice (07) ==
PROVIDERS: Emergency Medicine; Emergency Provider Family Medicine; PCP Family Medicine
DX: Z53.21 Procedure and treatment not carried out due to patient leaving prior to being seen by health care provider (principal)
CPT/HCPCS: 87637; 93005

== ENCOUNTER → 2024-05-18 12:41 | Outpatient (BNVA) | payer MEDICAID, SELFPAY | PROVIDERS: PCP Family Medicine; Visit Provider Nurse Practitioner Family | DX: I10 Essential (primary) hypertension (principal); I48.21 Permanent atrial fibrillation; E78.5 Hyperlipidemia, unspecified; Z86.711 Personal history of pulmonary embolism; I27.20 Pulmonary hypertension, unspecified | CPT/HCPCS: 99214 ==

== ENCOUNTER → 2024-12-07 13:50 | Outpatient (BNVA) | payer MEDICAID, SELFPAY | PROVIDERS: PCP Family Medicine; Visit Provider Internal Medicine Cardiovascular Disease | DX: I48.91 Unspecified atrial fibrillation (principal); I10 Essential (primary) hypertension; I47.10 Supraventricular tachycardia, unspecified; E78.5 Hyperlipidemia, unspecified; Z86.711 Personal history of pulmonary embolism | CPT/HCPCS: 99214 ==